=== PATIENT | male | born 1950 | race Caucasian/White ===

== ENCOUNTER 2020-06-05 08:32 | Outpatient (CLI) | payer MEDICARE, BC, SELFPAY ==
--- NOTE | 2020-06-05 08:52 | CT_ITS ---
WS: [id number] CT CHEST TECHNIQUE: Contrast enhanced CT of the chest with coronal and sagittal reformatted images. CLINICAL INFORMATION: COPD, HYPONATREMIA, SMOKER COMPARISON: CT chest 2010 DLP: 1102.[address] scans at [facility] use at least one of these dose optimization techniques: automat ed exposure control; mA and/or kV adjustment per patient size (includes targeted exams where dose is matched to clinical indication); or iterative reconstruction. FINDINGS: Moderate chronic emphysematous changes. Periseptal blebs in the upper lobes. Slight atelectasis in t he lung bases. No acute pulmonary infiltrates. No consolidation or pleural fluid. Noncalcified nodule right upper lobe measuring 6 mm. Normal thyroid gland. No mediastinal or hilar lymphadenopathy. Aortic calcification. Coronary calcifi cation. No axillary lymphadenopathy. Adrenal glands are normal. Cholelithiasis. Tiny low-attenuation lesion right hepatic lobe partially visualized likely hepatic cyst but too small characterize. This i s unchanged since 2010 CT/CT chest w con* [id number] IMPRESSION: 1. Moderate chronic emphysematous changes. 2. No acute pulmonary infiltrates. Subsegmental atelectasis in the lung bases. 3. 6 mm noncalcified nodule right upper lobe. Recommend 12 month follow-up. 4. No mediastinal or axillary lymphadenopathy. 5. Cholelithiasis.
[2020-06-05] MEDS: iohexol 300 mg/mL 100 mL Btl IV (09:06)
== END 2020-06-05 08:33 | disposition home or self-care (01) ==
LOC: RADWPI 08:37
PROVIDERS: PCP Family Medicine; Visit Provider Family Medicine
DX: J44.9 Chronic obstructive pulmonary disease, unspecified (principal); E87.1 Hypo-osmolality and hyponatremia; F17.210 Nicotine dependence, cigarettes, uncomplicated; K80.20 Calculus of gallbladder without cholecystitis without obstruction; R91.1 Solitary pulmonary nodule; J98.11 Atelectasis
CPT/HCPCS: 71260; Q9967

== ENCOUNTER → 2022-06-28 09:26 | Outpatient (BNVA) | payer MEDICARE, BC, SELFPAY | PROVIDERS: PCP Family Medicine; Visit Provider Podiatrist Foot & Ankle Surgery | DX: I73.9 Peripheral vascular disease, unspecified (principal); B35.1 Tinea unguium; R73.03 Prediabetes | CPT/HCPCS: 11721; 99203 ==

== ENCOUNTER → 2022-07-26 08:05 | Outpatient (BNVA) | payer MEDICARE, BC, SELFPAY | PROVIDERS: PCP Family Medicine; Visit Provider Family Medicine | DX: I10 Essential (primary) hypertension (principal); Z00.00 Encounter for general adult medical examination without abnormal findings | CPT/HCPCS: 80048; 80053; 80061 ==

== ENCOUNTER → 2022-07-28 16:05 | Outpatient (BNVA) | payer MEDICARE, BC, SELFPAY | PROVIDERS: PCP Family Medicine; Visit Provider Family Medicine | DX: E11.9 Type 2 diabetes mellitus without complications (principal); I10 Essential (primary) hypertension; J44.9 Chronic obstructive pulmonary disease, unspecified; K21.9 Gastro-esophageal reflux disease without esophagitis; Z00.00 Encounter for general adult medical examination without abnormal findings | CPT/HCPCS: 83036 ==

== ENCOUNTER → 2022-08-30 14:42 | Outpatient (BNVA) | payer MEDICARE, BC, SELFPAY | PROVIDERS: PCP Family Medicine; Visit Provider Podiatrist Foot & Ankle Surgery | DX: I73.9 Peripheral vascular disease, unspecified (principal); B35.1 Tinea unguium; R73.03 Prediabetes | CPT/HCPCS: 11721 ==

== ENCOUNTER 2022-12-06 11:01 | Outpatient (CLI) | payer MEDICARE, BC, SELFPAY ==
--- NOTE | 2022-12-06 11:13 | XR_ITS ---
WS: [id number] XR hip LT 2-3V wo/w pel* [id number] REASON FOR EXAM: left hip pain with walking FINDINGS: Moderate narrowing of the joint space with moderate subchondral sclerosis of the acetabulum. Significant osteophytosis of the acetabulum and femoral head. No soft tissue abnormality. XR/XR hip LT 2-3V wo/w pel* [id number] IMPRESSION: Significant osteoarthritis of the left hip.
== END 2022-12-06 11:02 | disposition home or self-care (01) ==
LOC: RAD 11:05
PROVIDERS: PCP Family Medicine; Visit Provider Nurse Practitioner Family
DX: M16.12 Unilateral primary osteoarthritis, left hip (principal)
CPT/HCPCS: 73502

== ENCOUNTER → 2022-12-07 13:17 | Outpatient (BNVA) | payer MEDICARE, BC, SELFPAY | PROVIDERS: PCP Family Medicine; Visit Provider Family Medicine | DX: R53.1 Weakness (principal); M19.90 Unspecified osteoarthritis, unspecified site; E87.1 Hypo-osmolality and hyponatremia | CPT/HCPCS: 80053; 83735; 84443; 85025; 86140 ==

== ENCOUNTER → 2022-12-13 10:13 | Outpatient (BNVA) | payer MEDICARE, BC, SELFPAY | PROVIDERS: PCP Family Medicine; Visit Provider Family Medicine | DX: E87.1 Hypo-osmolality and hyponatremia | CPT/HCPCS: 80048 ==

== ENCOUNTER → 2022-12-20 15:25 | Outpatient (BNVA) | payer MEDICARE, BC, SELFPAY | PROVIDERS: PCP Family Medicine; Visit Provider Family Medicine | DX: R53.1 Weakness (principal); E87.1 Hypo-osmolality and hyponatremia; N18.9 Chronic kidney disease, unspecified | CPT/HCPCS: 80053; 85025; 86140 ==

== ENCOUNTER → 2022-12-27 14:54 | Outpatient (BNVA) | payer MEDICARE, BC, SELFPAY | PROVIDERS: PCP Family Medicine; Visit Provider Family Medicine | DX: I73.9 Peripheral vascular disease, unspecified (principal); B35.1 Tinea unguium; M48.061 Spinal stenosis, lumbar region without neurogenic claudication; E87.1 Hypo-osmolality and hyponatremia; R79.82 Elevated C-reactive protein (CRP); E11.22 Type 2 diabetes mellitus with diabetic chronic kidney disease; I12.9 Hypertensive chronic kidney disease with stage 1 through stage 4 chronic kidney disease, or unspecified chronic kidney disease; E11.51 Type 2 diabetes mellitus with diabetic peripheral angiopathy without gangrene; N18.9 Chronic kidney disease, unspecified; B35.3 Tinea pedis; M79.672 Pain in left foot; M79.671 Pain in right foot | CPT/HCPCS: 11721; 80048; 85651; 86140; 99213 ==

== ENCOUNTER → 2023-01-11 15:41 | Outpatient (BNVA) | payer MEDICARE, BC, SELFPAY | PROVIDERS: PCP Family Medicine; Visit Provider Family Medicine | DX: E87.1 Hypo-osmolality and hyponatremia (principal) | CPT/HCPCS: 80048; 86140 ==

== ENCOUNTER 2023-01-14 12:18 | Outpatient (CLI) | payer MEDICARE, BC, SELFPAY ==
--- NOTE | 2023-01-14 13:30 | CTR_ITS ---
PROCEDURE INFORMATION: Exam: CT Chest Without Contrast; Diagnostic Exam date and time: 01/14/2023 2:00 PM Age: 72 years old Clinical indication: Abnormal findings; Abnormal lab test; Abnormal radiologic exam of lung or chest; Patient HX: Elevated esr, crp. Increased weakness, bilateral leg pain, HX of nodules in chest. ; Additional info: Elevated esr, crp, HX of lung nodule, increased weakness TECHNIQUE: Imaging protocol: Diagnostic computed tomography of the chest without contrast. Radiation optimization: All CT scans at this facility use at least one of these dose optimization techniques: automated exposure control; mA and/or kV adjustment per patient size (includes targeted exams where dose is matched to clinical indication); or iterative reconstruction. REPORTING DATA: Count of CT and Cardiac NM exams in prior 12 months: This patient has received 0 known CTs and 0 known cardiac nuclear medicine studies in the 12 months prior to the current study. COMPARISON: CT chest w con* [id number] 06/05/2020 9:04 AM RADIATION DOSE METRICS: Total DLP (mGy-cm): 1310.92 FINDINGS: Lungs: Emphysematous changes. Bilateral dependent atelectasis. Pleural spaces: Unremarkable. No pneumothorax. No pleural effusion. Heart: Unremarkable. No cardiomegaly. No pericardial effusion. Coronary arteries: Coronary artery atherosclerotic calcifications. Lymph nodes: Scattered subcentimeter short axis nonspecific mediastinal nodes. Vasculature: Unremarkable. No aortic aneurysm. Bones/joints: Unremarkable. No acute fracture. Soft tissues: Unremarkable. COMMENTS: In the absence of a history or active diagnosis of lung cancer, it is recommended that this patient with emphysema be evaluated for enrollment in a low dose CT lung cancer screening program. PROCEDURE INFORMATION: Exam: CT Abdomen And Pelvis Without Contrast Exam date and time: 01/14/2023 2:00 PM Age: 72 years old Clinical indication: Abnormal findings; Abnormal lab test; Abnormal radiologic exam of lung or chest; Patient HX: Elevated esr, crp. Increased weakness, bilateral leg pain, HX of nodules in chest. ; Additional info: Elevated esr, crp, HX of lung nodule, increased weakness TECHNIQUE: Imaging protocol: Computed tomography of the abdomen and pelvis without contrast. Radiation optimization: All CT scans at this facility use at least one of these dose optimization techniques: automated exposure control; mA and/or kV adjustment per patient size (includes targeted exams where dose is matched to clinical indication); or iterative reconstruction. REPORTING DATA: Count of CT and Cardiac NM exams in prior 12 months: This patient has received 0 known CTs and 0 known cardiac nuclear medicine studies in the 12 months prior to the current study. COMPARISON: CR XR hip LT 2-3V wo/w pel* [id number] 12/06/2022 11:18 AM RADIATION DOSE METRICS: Total DLP (mGy-cm): 1310.92 FINDINGS: Liver: Normal. No mass. Gallbladder and bile ducts: Normal. No calcified stones. No ductal dilation. Pancreas: Normal. No ductal dilation. Spleen: Normal. No splenomegaly. Adrenal glands: Normal. No mass. Kidneys and ureters: Perinephric edema likely reflecting renal insufficiency, please correlate pyelonephritis. Stomach and bowel: Constipation. Diverticulosis without diverticulitis. Appendix: No evidence of appendicitis. Intraperitoneal space: Unremarkable. No free air. No significant fluid collection. Vasculature: Unremarkable. No abdominal aortic aneurysm. Lymph nodes: Unremarkable. No enlarged lymph nodes. Urinary bladder: Unremarkable as visualized. Reproductive: Unremarkable as visualized. Bones/joints: Unremarkable. No acute fracture. Soft tissues: Unremarkable. Other findings: Bilateral punctate non-obstructing calyceal stones. CT/[place] [id number] IMPRESSION: 1. Coronary artery atherosclerotic calcifications. 2. Emphysematous changes. 3. Bilateral dependent atelectasis. 4. Scattered subcentimeter short axis nonspecific mediastinal nodes. IMPRESSION: 1. Negative for acute inflammatory process in the abdomen or pelvis. 2. Bilateral punctate non-obstructing calyceal stones. 3. Constipation. 4. Diverticulosis without diverticulitis. 5. Perinephric edema likely reflecting renal insufficiency, please correlate pyelonephritis.
[2023-01-14] MEDS: iohexol 350 mg/mL 500 mL Btl (per mL) PO (14:09)
== END 2023-01-14 12:19 | disposition home or self-care (01) ==
LOC: RAD 12:20
PROVIDERS: PCP Family Medicine; Visit Provider Family Medicine
DX: E87.1 Hypo-osmolality and hyponatremia (principal); R79.82 Elevated C-reactive protein (CRP); R91.1 Solitary pulmonary nodule; I25.10 Atherosclerotic heart disease of native coronary artery without angina pectoris; K59.00 Constipation, unspecified; K57.30 Diverticulosis of large intestine without perforation or abscess without bleeding
CPT/HCPCS: 71250; 74176; Q9967

== ENCOUNTER 2023-01-21 14:04 | Outpatient (CLI) | payer MEDICARE, BC, SELFPAY ==
--- NOTE | 2023-01-21 14:30 | MR_ITS ---
WS: [id number] MRI LUMBAR SPINE NONCONTRAST HISTORY: spinal stenosis/ worsening pain COMPARISON: 01/09/2015. TECHNIQUE: Sagittal and axial multisequence imaging is submitted. The same numbering pattern will be utilized on today's MRI as on 01/09/2015. Mild cervical stenosis at T3-4 Normal lumbar alignment with no compression fractures or marrow edema. Disc spaces are mildly narrowed and desiccated. Most significant narrowing at L5-S1. Conus terminates normally at L1-2 disc level. L1-L2: Mild facet arthritis. No stenosis. L2-L3: Mild annular disc bulging encroaching upon the ventral thecal sac. Disc encroaches upon the merlos barticular recesses and the foramina. Moderate central and bilateral foraminal stenosis has progresse d since the prior study. L3-L4: Diffuse annular disc bulging with mild ligamentum flavum and facet arthritis. There is disc en croachment upon the traversing L4 nerve roots. Mild central, bilateral subarticular recess and modera te bilateral foraminal stenosis. Similar to the prior study. L4-L5: Marked annular disc bulging with marked ligamentum flavum and facet arthritis. Severe central, bilateral subarticular recess and foraminal stenosis. Stenosis has significantly progressed since th e prior study. L5-S1: Marked annular disc bulging with facet joint arthritis. Moderate central and bilateral subarti cular recess stenosis. Moderate bilateral foraminal stenosis. Urinary bladder is markedly distended. IMPRESSION: 1. Multilevel progression of degenerative disc disease and stenoses since 2014. 2. L2-3: Moderate central, subarticular recess and foraminal stenosis. 3. L3-4: Moderate bilateral foraminal stenosis with mild central and subarticular recess stenosis. 4. L4-5: Severe central, bilateral subarticular recess and foraminal stenosis. 5. L5-S1: Moderate central, bilateral subarticular recess and foraminal stenosis.
== END 2023-01-21 14:05 | disposition home or self-care (01) ==
LOC: RAD 14:04
PROVIDERS: PCP Family Medicine; Visit Provider Family Medicine
DX: M48.07 Spinal stenosis, lumbosacral region (principal); M51.36 Other intervertebral disc degeneration, lumbar region; E87.1 Hypo-osmolality and hyponatremia; R79.82 Elevated C-reactive protein (CRP)
CPT/HCPCS: 72148

== ENCOUNTER → 2023-01-26 11:03 | Outpatient (BNVA) | payer MEDICARE, BC, SELFPAY | PROVIDERS: PCP Family Medicine; Visit Provider Family Medicine | DX: R79.82 Elevated C-reactive protein (CRP) (principal); M48.061 Spinal stenosis, lumbar region without neurogenic claudication; E87.1 Hypo-osmolality and hyponatremia | CPT/HCPCS: 80048; 86140 ==

== ENCOUNTER → 2023-02-09 08:17 | Outpatient (BNVA) | payer MEDICARE, BC, SELFPAY | PROVIDERS: PCP Family Medicine; Visit Provider Family Medicine | DX: R79.82 Elevated C-reactive protein (CRP) (principal); E87.1 Hypo-osmolality and hyponatremia; M48.061 Spinal stenosis, lumbar region without neurogenic claudication; E11.9 Type 2 diabetes mellitus without complications | CPT/HCPCS: 80048; 83036; 86140 ==

== ENCOUNTER → 2023-02-16 09:40 | Outpatient (BNVA) | payer MEDICARE, BC, SELFPAY | PROVIDERS: PCP Family Medicine; Visit Provider Orthopaedic Surgery | DX: M48.062 Spinal stenosis, lumbar region with neurogenic claudication; M54.9 Dorsalgia, unspecified | CPT/HCPCS: 36415; 72100; 80053; 85025; 99204 ==

== ENCOUNTER → 2023-03-02 12:15 | Outpatient (BNVA) | payer MEDICARE, BC, SELFPAY | PROVIDERS: PCP Family Medicine; Visit Provider Family Medicine | DX: I48.91 Unspecified atrial fibrillation (principal); R79.82 Elevated C-reactive protein (CRP); E87.1 Hypo-osmolality and hyponatremia | CPT/HCPCS: 80053; 81000; 83735; 83880; 84443; 85025; 86140 ==

== ENCOUNTER → 2023-03-04 09:01 | Outpatient (BNVA) | payer MEDICARE, BC, SELFPAY | PROVIDERS: PCP Family Medicine; Visit Provider Family Medicine | DX: I73.9 Peripheral vascular disease, unspecified (principal); B35.1 Tinea unguium; B35.3 Tinea pedis; R73.03 Prediabetes; N18.9 Chronic kidney disease, unspecified | CPT/HCPCS: 11721; 81000 ==

== ENCOUNTER 2023-03-10 09:20 | Outpatient (CLI) | payer MEDICARE, BC, SELFPAY ==
--- NOTE | 2023-03-10 09:31 | XR_ITS ---
WS: [id number] Left knee, AP and lateral views, 03/10/2023 Clinical Data: leg pain Comparison: None. Findings: No fractures or dislocations are seen. There is medial joint compartment narrowing. The left patella shows mild posterior irregularity with an anterior superior spur. The soft tissues are unremarkable. There are vascular calcifications. Impression: Mild osteoarthritis of the left knee Kellgren-Thiago Classification: grade 1 (doubtful): doubtful joint space narrowing and possible ost eophytic lipping
--- NOTE | 2023-03-10 09:31 | XR_ITS ---
WS: [id number] Left hip, AP and frog-leg views, 03/10/2023 Clinical Data: leg pain Comparison: None. Findings: No fractures or dislocations are seen. There is narrowing of the left hip joint. There is a small luisito tabular spur. There is no sclerosis or fragmentation of the left femoral head. There is osteophytic c hange of the left femoral head. The soft tissues are not remarkable. The adjacent pelvis is normal. Vascular calcifications are seen. Impression: Moderate osteoarthritis of the left hip. Tonnis classification: grade 2: small cysts in femoral head/acetabulum or moderate joint space narrow ing or moderate loss of head sphericity
--- NOTE | 2023-03-10 09:31 | XR_ITS ---
WS: [id number] Left femur and thigh, AP and lateral views, 03/10/2023 Clinical Data: leg pain Comparison: None. Findings: No fractures or dislocations are seen. The soft tissues are normal. The visualized knee shows no abno rmalities. There is vascular calcification. Impression: Negative left femur and thigh.
== END 2023-03-10 09:21 | disposition home or self-care (01) ==
PROVIDERS: PCP Family Medicine; Visit Provider Family Medicine
DX: M17.12 Unilateral primary osteoarthritis, left knee (principal); M16.12 Unilateral primary osteoarthritis, left hip
CPT/HCPCS: 73502; 73552; 73560

== ENCOUNTER 2023-03-16 07:03 | Outpatient (CLI) | payer MEDICARE, BC, SELFPAY ==
--- NOTE | 2023-03-16 07:30 | USCV_ITS ---
Monty Christopher Age: 72 Gender: M : 1950 Exam Date: 03/16/2023 07:20 Ordering Phys: Anand Geiger MD Technologist: Daiana Tejada Exam Location: [facility] – [place] Indication: NEW ONSET AFIB CHEST PAIN SOB HIGH C-REACTIVE PROTIEN BP: 130 / 75 HR: 74 Rhythm: Sinus Technical Quality: Adequate MEASUREMENTS (Male / Female) Normal Values 2D ECHO LV Diastolic Diameter PLAX 4.6 cm 4.2 - 5.9 / 3.9 - 5.3 cm LV Systolic Diameter PLAX 2.7 cm LV Chamber Size 3.8 cm IVS Diastolic Thickness 0.9 cm 0.6 - 1.0 / 0.6 - 0.9 cm IVS Systolic Thickness 1.2 cm LVPW Diastolic Thickness 1.2 cm 0.6 - 1.0 / 0.6 - 0.9 cm LVPW Systolic Thickness 1.7 cm RV Chamber Size 3.5 cm LVOT Diameter 2.0 cm LV Ejection Fraction 2D Teich 72.3 % LV Ejection Fraction MOD 2C 71.3 % LV Ejection Fraction 2C AL 71.7 % LA Diameter 5.6 cm LA Width 3.9 cm LA Height 5.3 cm RA Width 5.3 cm RA Height 4.5 cm Aorta at Sinotubular Diameter 3.0 cm M-MODE Aortic Annulus Diameter 3.9 cm LA Ao Ratio MM 1.6 MV E Point Septal Separation 0.5 cm DOPPLER AV Peak Velocity 118.0 cm/s LVOT Peak Velocity 72.0 cm/s AV Area Cont Eq vti 2.2 cm squared AV Area Cont Eq pk 2.0 cm squared MV Area PHT 5.1 cm squared Mitral E to A Ratio 198.7 MV E' Velocity 64.0 cm/s Mitral E to MV E' Ratio 13.0 Mitral E to LV E' Lateral Ratio 13.7 Mitral E to LV E' Septal Ratio 12.3 TR Peak Velocity 224.3 cm/s TR Peak Gradient 20.1 mmHg TR Mean Velocity 173.0 cm/s TR Mean Gradient 13.3 mmHg TR Velocity Time Integral 70.3 cm TV Peak E Velocity 69.0 cm/s Right Atrial Pressure 3.0 mmHg Pulmonary Artery Systolic Pressu 23.1 mmHg RV Acceleration Time 0.3 s RV Ejection Time 0.1 s RV AcT/ET 2.9 FINDINGS Left Ventricle Normal left ventricular size and systolic function, EF 64 %. No regional wall motion abnormalities. Right Ventricle Normal right ventricular size and systolic function. Right Atrium Mildly increased right atrial size. Left Atrium Mildly increased left atrial size. Mitral Valve Mild mitral valve regurgitation. Aortic Valve . Thickened aortic valve. Tricuspid Valve Mild to moderate tricuspid valve regurgitation. Estimated pulmonary artery peak systolic pressure 23 mm of Hg Pulmonic Valve Pulmonic valve not well visualized. Pericardium Normal pericardium without effusion. Aorta Normal ascending aorta dimension. IVC Normal inferior vena cava. CONCLUSIONS Normal left ventricular size and systolic function, EF 64 %. No regional wall motion abnormalities. Mild biatrial enlargement. Thickened aortic valve. Mild mitral valve regurgitation. Mild to moderate tricuspid valve regurgitation. Estimated pulmonary artery peak systolic pressure 23 mm of Hg. There is no pericardial effusion. There are no intracardiac masses. No similar previous studies are available for comparison Dr Isabel Pisano MD FAC (Electronically Signed) Final Date: 16 March 2023 21:46 S
== END 2023-03-16 07:04 | disposition home or self-care (01) ==
LOC: RAD 07:03
PROVIDERS: PCP Family Medicine; Visit Provider Family Medicine
DX: R07.9 Chest pain, unspecified (principal); E87.1 Hypo-osmolality and hyponatremia; I48.91 Unspecified atrial fibrillation; R79.82 Elevated C-reactive protein (CRP); I51.7 Cardiomegaly; I34.0 Nonrheumatic mitral (valve) insufficiency; I35.8 Other nonrheumatic aortic valve disorders
CPT/HCPCS: 93306

== ENCOUNTER → 2023-04-12 09:49 | Outpatient (BNVA) | payer MEDICARE, BC, SELFPAY | PROVIDERS: PCP Family Medicine; Visit Provider Family Medicine | DX: M48.062 Spinal stenosis, lumbar region with neurogenic claudication (principal); I48.91 Unspecified atrial fibrillation; R79.82 Elevated C-reactive protein (CRP); E87.1 Hypo-osmolality and hyponatremia; I10 Essential (primary) hypertension | CPT/HCPCS: 80048; 83880; 85025; 86140 ==

== ENCOUNTER → 2023-05-24 10:24 | Outpatient (BNVA) | payer MEDICARE, BC, SELFPAY | PROVIDERS: PCP Family Medicine; Visit Provider Podiatrist Foot & Ankle Surgery | DX: B35.1 Tinea unguium (principal); B35.3 Tinea pedis; I73.9 Peripheral vascular disease, unspecified; R73.03 Prediabetes | CPT/HCPCS: 11721 ==

== ENCOUNTER → 2023-07-22 10:38 | Outpatient (BNVA) | payer MEDICARE, BC, SELFPAY | PROVIDERS: PCP Family Medicine; Visit Provider Family Medicine | DX: I10 Essential (primary) hypertension (principal); I48.91 Unspecified atrial fibrillation; E87.1 Hypo-osmolality and hyponatremia | CPT/HCPCS: 80053; 83880; 86140 ==

== ENCOUNTER → 2023-07-25 09:00 | Outpatient (BNVA) | payer MEDICARE, BC, SELFPAY | PROVIDERS: PCP Family Medicine; Visit Provider Podiatrist Foot & Ankle Surgery | DX: B35.1 Tinea unguium (principal); B35.3 Tinea pedis; I73.9 Peripheral vascular disease, unspecified; R73.03 Prediabetes | CPT/HCPCS: 11721 ==

== ENCOUNTER 2023-08-28 06:39 | Emergency (ER) | payer MEDICARE, BC, SELFPAY ==
[2023-08-28 06:41] VITALS: BP 141/106; PULSE 89; RESP 16; TEMP 36.6; O2SAT 97
--- NOTE | 2023-08-28 06:47 | CTR_ITS ---
PROCEDURE INFORMATION: Exam: CT Abdomen And Pelvis Without Contrast Exam date and time: 08/28/2023 7:02 AM Age: 72 years old Clinical indication: Other: Hematuria TECHNIQUE: Imaging protocol: Computed tomography of the abdomen and pelvis without contrast. Radiation optimization: All CT scans at this facility use at least one of these dose optimization techniques: automated exposure control; mA and/or kV adjustment per patient size (includes targeted exams where dose is matched to clinical indication); or iterative reconstruction. COMPARISON: [place] [id number] 01/14/2023 2:00 PM RADIATION DOSE METRICS: Total DLP (mGy-cm): 1180.73 FINDINGS: Heart: Very small pericardial effusion. Bilateral mild ureteropelvocaliectasis. No obstructing calculus is seen. The urinary bladder is distended and the findings may be on that basis. Liver: Normal. No mass. Gallbladder and bile ducts: Normal. No calcified stones. No ductal dilation. Pancreas: Normal. No ductal dilation. Spleen: Normal. No splenomegaly. Adrenal glands: Normal. No mass. Kidneys and ureters: Normal. No hydronephrosis. Stomach and bowel: Unremarkable. No obstruction. No mucosal thickening. Appendix: No evidence of appendicitis. Intraperitoneal space: Unremarkable. No free air. No significant fluid collection. Vasculature: Unremarkable. No abdominal aortic aneurysm. Lymph nodes: Unremarkable. No enlarged lymph nodes. Urinary bladder: There is slightly increased density in the dependent urinary bladder this appears more likely to represent or clotted blood than a mass. Reproductive: Unremarkable as visualized. Bones/joints: Degenerative changes of the lumbar spine. Soft tissues: Unremarkable. CT/CT kidney stone [id number] IMPRESSION: Distended urinary bladder with mild upper tract obstructive changes. Debris, perhaps blood clot, within the urinary bladder.
--- NOTE | 2023-08-28 06:47 | ED_ITS ---
HPI - Male Genitourinary 2 General: Chief complaint: Urogenital-Male Stated complaint: Blood in Urine Time Seen by Provider: 08/28/23 06:41 Source: patient and EMS Mode of arrival: EMS Limitations: no limitations History of Present Illness: 72-year-old male who states he has been having hematuria since last night. He states that it has been just gross hematuria and is been having some painful urination. He has had no history of any kidney or prostate issues he states he has never had hematuria in the past he is not on any blood thinners. He denies any vomiting diarrhea or fever. Associated symptoms: Reports dysuria and hematuria; Deny nausea or vomiting Review of Systems 2 Const: Denies: fever(s), chills, body aches or change in appetite ENMT: Denies: throat pain or dental pain Card: Denies: chest pain Resp: Denies: dyspnea GI: Denies: abdominal pain, nausea, vomiting or diarrhea : Reports: dysuria and hematuria Musc: Denies: neck pain or back pain Skin/Breast: Denies: rash Neuro: Denies: headache(s) PFSH ED 2 PFSH: Medical History Atrial fibrillation Lumbar spinal stenosis Hyponatremia This has been chronic for several years. Made worse by diuretics. Negative work-up otherwise Gout Chronic kidney disease (CKD) Hypertension Diabetes mellitus type 2, controlled COPD (chronic obstructive pulmonary disease) GERD (gastroesophageal reflux disease) Physical Exam 2 Const: COMMON NORMALS: no acute distress, patient oriented x3 and healthy appearing HENMT: COMMON NORMALS: normocephalic and atraumatic HEAD & SCALP: n ormocephalic and atraumatic Neck/C-Spine: COMMON NORMALS: full ROM and supple Chest: COMMONS NORMALS: normal inspection of the chest Resp: COMMON NORMALS: normal respiratory effort Cardio: COMMON NORMALS: regular rate, regular rhythm and No murmurs present (Cardio) RATE: regular rate RHYTHM: regular rhythm GI: COMMON NORMALS: Normal to inspection, nondistended, normoactive bowel sounds present, Soft to palpation, non-tender and no masses PALPATION: Yes Soft to palpation Extremity: COMMON NORMALS: normal to inspection and full ROM Neuro: COMMON NORMALS: patient oriented x3, moves all extremities and no focal motor deficits Psych: COMMON NORMALS: mental status grossly normal, Normal thought process present and cooperative THOUGHT PROCESS: Normal thought process present Skin: COMMON NORMALS: no rashes or lesions noted and no wounds GENERAL SKIN EXAM: no rashes or lesions noted Course 2 Vital Signs: Vital signs: Vital Signs Temperature 97.9 F 08/28/23 06:41 Pulse Rate 93 08/28/23 09:58 Respiratory Rate 16 08/28/23 09:58 Blood Pressure 164/97 08/28/23 09:58 Pulse Oximetry 98 08/28/23 09:58 MDM - Male Medical Decision Making Patient presents with hematuria he was found to have a cystitis has had a quite lean and large bladder on the CT scan he is unable to empty fully did place a Nelson his urine is clear now did leave Nelson in place with leg bag will start on antibiotics he is to follow-up with urology return if worsening. Medical Records I reviewed the patient's medical records. Lab Data I reviewed the patient's lab results. 08/28/23 06:56 08/28/23 09:01 Radiology Impressions Abdomen/Pelvis CT 08/28/23 06:47 IMPRESSION: Distended urinary bladder with mild upper tract obstructive changes. Debris, perhaps blood clot, within the urinary bladder. Laboratory Results WBC 9.14 10^3/uL (3.29-11.43) 08/28/23 06:56 RBC 4.99 10^6/uL (3.85-5.65) 08/28/23 06:56 Hgb 13.70 g/dL (11.27-16.99) 08/28/23 06:56 Hct 40.6 % (37-53) 08/28/23 06:56 MCV 81.4 fl (82-101) L 08/28/23 06:56 MCH 27.5 pg (27-33) 08/28/23 06:56 MCHC 33.7 g/dL (30-55) 08/28/23 06:56 RDW 15.3 % (12.1-15.1) H 08/28/23 06:56 Plt Count 201 10^3/cmm (157-399) 08/28/23 06:56 MPV 10.0 fL (7.4-10.4) 08/28/23 06:56 Neut % (Auto) 66.4 % 08/28/23 06:56 Lymph % (Auto) 20.4 % 08/28/23 06:56 [place] % (Auto) 8.5 % 08/28/23 06:56 Eos % (Auto) 3.8 % 08/28/23 06:56 Baso % (Auto) 0.5 % 08/28/23 06:56 Neut # (Auto) 6.06 10^3/uL (1.8-7.7) 08/28/23 06:56 Lymph # (Auto) 1.9 10^3/uL (0.8-4.8) 08/28/23 06:56 [place] # (Auto) 0.8 10^3/uL (0.2-0.9) 08/28/23 06:56 Eos # (Auto) 0.4 10^3/uL (0.0-0.8) 08/28/23 06:56 Baso # (Auto) 0.1 10^3/uL (0.0-0.1) 08/28/23 06:56 Nucleated RBC % (auto) 0 % 08/28/23 06:56 Nucleated RBCs # 0.0 /100WBC 08/28/23 06:56 PT 15.00 SECONDS (12.1-14.9) H 08/28/23 06:56 INR 1.14 (0.8-1.2) 08/28/23 06:56 Sodium 130 mmol/L (136-145) L 08/28/23 09:01 Potassium 4.2 mmol/L (3.5-5.1) 08/28/23 09:01 Chloride 97 mmol/L (98-107) L 08/28/23 09:01 Carbon Dioxide 20 mmol/L (22-29) L 08/28/23 09:01 Anion Gap 17.2 (5-19) 08/28/23 09:01 BUN 16 mg/dL (8-23) 08/28/23 09:01 Creatinine 1.0 mg/dL (0.7-1.2) 08/28/23 09:01 GFR Calculation Not Reportable 08/28/23 09:01 Glucose 124 mg/dL (65-115) H 08/28/23 09:01 Calculated Osmolality 273 mOsm/kg (285-295) L 08/28/23 09:01 Calcium 8.6 mg/dL (8.5-10.5) 08/28/23 09:01 Total Bilirubin 0.8 mg/dL (0.15-1.2) 08/28/23 09:01 AST 18 U/L (0-40) 08/28/23 09:01 ALT 9 U/L (0-41) 08/28/23 09:01 Alkaline Phosphatase 112 U/L (40-130) 08/28/23 09:01 Total Protein 6.9 g/dL (6.6-8.7) 08/28/23 09:01 Albumin 3.4 g/dL (3.5-5.2) L 08/28/23 09:01 Globulin 3.5 g/dL (1.3-4.6) 08/28/23 09:01 Urine Color Brown (Yellow) A 08/28/23 06:52 Urine Appearance Bloody (CLEAR) A 08/28/23 06:52 Urine pH 6.5 (5-7) 08/28/23 06:52 Ur Specific [place] 1.015 (1.005-1.030) 08/28/23 06:52 Urine Protein 3+ (Negative) H 08/28/23 06:52 Urine Glucose (UA) Norm (Normal) 08/28/23 06:52 Urine Ketones Negative (Negative) 08/28/23 06:52 Urine Blood 3+ (Negative) H 08/28/23 06:52 Urine Nitrate Positive (Negative) H 08/28/23 06:52 Urine Bilirubin Neg (Negative) 08/28/23 06:52 Urine Urobilinogen Norm mg/dL (Negative) 08/28/23 06:52 Ur Leukocyte Esterase 2+ (Negative) H 08/28/23 06:52 Urine RBC Too numerous to cnt /hpf (0-2) H 08/28/23 06:52 Urine WBC 15-25 /hpf (0-5) H 08/28/23 06:52 Ur Squamous Epith Cells None /hpf (0-5) 08/28/23 06:52 Amorphous Sediment Not Reportable 08/28/23 06:52 Urine Bacteria 1+ /hpf (NONE) H 08/28/23 06:52 All radiology interpretation(s) finalized by discharge Discharge Plan Discharge Patient Disposition: Home Clinical Impression: Urinary tract infection Qualifiers: Urinary tract infection type: acute cystitis Hematuria presence: with hematuria Qualified Code(s): N30.01 - Acute cystitis with hematuria Condition: Stable Prescriptions: New cephalexin 500 mg capsule 500 mg PO TID 7 Days Qty: 21 0RF No Action aspirin 325 mg tablet 325 mg PO DAILY carvedilol 12.5 mg tablet 12.5 mg PO BID Qty: 60 11RF clonidine HCl 0.1 mg tablet 0.1 mg PO BID Qty: 60 11RF simvastatin 10 mg tablet 10 mg PO DAILY Qty: 30 11RF omeprazole 20 mg Capsule,Delayed Release(Dr/Ec) 20 mg PO DAILY naproxen 500 mg tablet 500 mg PO BID PRN (Reason: Pain) Discharge Orders: Discharge ED (Routine); Ordered 08/28/23 Ordered By: Karolina Marr Referrals: Anand Geiger MD [Primary Care Provider] - 4-7 days Discharge Diet: Advance as tolerated Discharge Activity: Resume usual activity Patient Instructions: Nelson Catheter Care, Urinary Tract Infection in Men (ED), Hematuria (ED) Coding Level of Care Code ED [employer] for [employer]de Perla
[2023-08-28 07:12] LABS: Basophils # 0.1 10^3/uL (0.0-0.1); Basophils % 0.5 %; Eosinophils # 0.4 10^3/uL (0.0-0.8); Eosinophils % 3.8 %; Hematocrit 40.6 % (37-53); Lymphocytes # 1.9 10^3/uL (0.8-4.8); Lymphocytes % 20.4 %; Mean Corpuscular HGB Conc 33.7 g/dL (30-55); Mean Corpuscular Hemoglobin 27.5 pg (27-33); Mean Corpuscular Volume 81.4 fl (82-101); Monocytes # 0.8 10^3/uL (0.2-0.9); Monocytes % 8.5 %; Neutrophils # 6.06 10^3/uL (1.8-7.7); Neutrophils % 66.4 %; Nucleated Red Blood Cells % 0 %; Platelet Count 201 10^3/cmm (157-399); Red Blood Count 4.99 10^6/uL (3.85-5.65); Red Cell Distribution Width 15.3 % (12.1-15.1); White Blood Count 9.14 10^3/uL (3.29-11.43)
[2023-08-28 07:24] LABS: INR 1.14 (0.8-1.2)
[2023-08-28 07:40] LABS: Add Urine Microscopic? YES; Bilirubin Urine Neg (Negative); Blood Urine 3+ (Negative); Glucose Urine UA Norm (Normal); Ketones Urine Negative (Negative); Leukocyte Esterase Urine 2+ (Negative); Nitrate Urine Positive (Negative); Protein Urine 3+ (Negative); Specific Gravity, Urine 1.015 (1.005-1.030); Urine Appearance Bloody (CLEAR); Urine Color Brown (Yellow); Urobilinogen Urine Norm (Negative); pH Urine 6.5 (5-7)
[2023-08-28 07:41] LABS: Add Urine Culture? Yes; Bacteria Urine 1+ /hpf; RBC Urine TOO NUMEROUS TO CNT /hpf (0-2); WBC Urine 15-25 /hpf (0-5)
[2023-08-28 08:51] VITALS: BP 153/61; PULSE 82; RESP 16; O2SAT 99
[2023-08-28] MEDS: cefTRIAXone 1,000 MG in sodium chloride 0.9% (plus) 50 ML 100 MG IV (08:52)
[2023-08-28 09:37] LABS: Alanine Aminotransferase 9 U/L (0-41); Albumin Level 3.4 g/dL (3.5-5.2); Alkaline Phosphatase 112 U/L (40-130); Aspartate Amino Transferase 18 U/L (0-40); Blood Urea Nitrogen 16 mg/dL (8-23); Calcium 8.6 mg/dL (8.5-10.5); Carbon Dioxide 20 mmol/L (22-29); Chloride 97 mmol/L (98-107); Creatinine Clr Calc Pharmacy 84.2241; Globulin 3.5 g/dL (1.3-4.6); Glucose 124 mg/dL (65-115); Osmolality Calculated 273 mOsm/kg (285-295); Sodium 130 mmol/L (136-145); Total Bilirubin 0.8 mg/dL (0.15-1.2); Total Protein 6.9 g/dL (6.6-8.7)
[2023-08-28 09:39] LABS: Anion Gap 17.2 (5-19); Potassium 4.2 mmol/L (3.5-5.1)
[2023-08-28 09:58] VITALS: BP 164/97; PULSE 93; RESP 16; O2SAT 98
--- NOTE | 2023-08-31 18:53 | DCPLANNER ---
FAXED REFERRAL TO [facility]
== END 2023-08-28 10:25 | disposition home or self-care (01) ==
PROVIDERS: Emergency Provider Emergency Medicine; PCP Family Medicine
DX: N30.01 Acute cystitis with hematuria (principal); Z79.82 Long term (current) use of aspirin; E11.22 Type 2 diabetes mellitus with diabetic chronic kidney disease; I12.9 Hypertensive chronic kidney disease with stage 1 through stage 4 chronic kidney disease, or unspecified chronic kidney disease; N18.9 Chronic kidney disease, unspecified; J44.9 Chronic obstructive pulmonary disease, unspecified
CPT/HCPCS: 36415; 51702; 74176; 80053; 81001; 85025; 85610; 87086; 96365; 99285; J0696

== ENCOUNTER 2023-08-30 06:14 | Emergency (ER) | payer MEDICARE, BC, SELFPAY ==
[2023-08-30 06:15] VITALS: BP 164/85; PULSE 81; RESP 18; TEMP 36.6; O2SAT 98; BMI 38.0
--- NOTE | 2023-08-30 06:26 | W.ED.MALEGU ---
HPI - Male Genitourinary General: Chief complaint: Urogenital-Male Stated complaint: hematuria Time Seen by Provider: 08/30/23 06:18 Source: patient Mode of arrival: ambulatory History of Present Illness: 72-year-old male presents emergency room with complaint of gross hematuria and a Nelson catheter. Patient was here 2 days ago at that time he had urinary outlet obstruction secondary to hematuria and clots catheter was placed urine was cultured he was started on cephalexin. So far urine has not had any growth. He is not on any anticoagulants he does take aspirin daily and naproxen. Encouraged tenderness today because of gross hematuria in the Nelson bag. He has no known history of bladder or prostate cancers. Associated symptoms: Deny dysuria Review of Systems Const: Denies: fever(s) or chills Card: Denies: chest pain Resp: Denies: dyspnea GI: Denies: abdominal pain : Denies: dysuria, urinary frequency or urinary urgency Musc: Denies: neck pain or back pain Skin/Breast: Denies: rash PFSH ED PFSH: Medical History Atrial fibrillation Lumbar spinal stenosis Hyponatremia This has been chronic for several years. Made worse by diuretics. Negative work-up otherwise Gout Chronic kidney disease (CKD) Hypertension Diabetes mellitus type 2, controlled COPD (chronic obstructive pulmonary disease) GERD (gastroesophageal reflux disease) Physical Exam Const: COMMON NORMALS: no acute distress GENERAL APPEARANCE: cooperative and comfortable ORIENTATION/CONSCIOUSNESS: Yes awake, Yes oriented to person, Yes oriented to place and Yes oriented to time HENMT: COMMON NORMALS: normocephalic, atraumatic and hearing grossly normal bilaterally HEAD & SCALP: normocephalic and atraumatic Resp: COMMON NORMALS: normal respiratory effort, No retractions, No use of accessory muscles and clear to auscultation bilaterally AUSCULTATION: clear to auscultation bilaterally Cardio: COMMON NORMALS: regular rate, regular rhythm and No murmurs present (Cardio) RATE: regular rate RHYTHM: regular rhythm GI: COMMON NORMALS: Soft to palpation and No hepatosplenomegaly present AUSCULTATION: Yes normoactive bowel sounds PALPATION: Yes Soft to palpation, No Tenderness to palpation present (GI), No Guarding due to palpation present (GI) and Yes No hepatosplenomegaly present Extremity: COMMON NORMALS: normal to inspection, capillary refill normal, no clubbing, cyanosis or edema, no calf tenderness and no pedal edema Neuro: SENSORIUM/ORIENTATION: Yes oriented to person, Yes oriented to place and Yes oriented to time Skin: COMMON NORMALS: no rashes or lesions noted GENERAL SKIN EXAM: no rashes or lesions noted Course Vital Signs: Vital signs: Vital Signs Temperature 97.9 F 08/30/23 06:15 Pulse Rate 78 08/30/23 10:03 Respiratory Rate 16 08/30/23 10:03 Blood Pressure 164/85 08/30/23 06:15 Pulse Oximetry 95 08/30/23 10:03 Oxygen Delivery Me thod Room Air 08/30/23 10:03 MDM - Male Medical Decision Making Hematuria improved after 6 L of irrigation. Will discharge patient home set up outpatient follow-up with urology. Discussed with the patient if there is no urinary output or he has develops pelvic discomfort to return to the emergency room. He is not on any anticoagulants at this time. Urine culture from 08/27 showed mixed kayce. We did repeat urine today did not start him on antibiotics pending a positive urine culture. CT was done 08/27 and reviewed did not show any large structural abnormalities so was not repeated today. Medical Records I reviewed the patient's medical records. Lab Data I reviewed the patient's lab results. 08/30/23 07:03 08/30/23 07:03 Laboratory Results WBC 8.43 10^3/uL (3.29-11.43) 08/30/23 07:03 RBC 4.60 10^6/uL (3.85-5.65) 08/30/23 07:03 Hgb 12.70 g/dL (11.27-16.99) 08/30/23 07:03 Hct 38.0 % (37-53) 08/30/23 07:03 MCV 82.6 fl (82-101) 08/30/23 07:03 MCH 27.6 pg (27-33) 08/30/23 07:03 MCHC 33.4 g/dL (30-55) 08/30/23 07:03 RDW 15.3 % (12.1-15.1) H 08/30/23 07:03 Plt Count 184 10^3/cmm (157-399) 08/30/23 07:03 MPV 9.3 fL (7.4-10.4) 08/30/23 07:03 Neut % (Auto) 58.8 % 08/30/23 07:03 Lymph % (Auto) 26.3 % 08/30/23 07:03 [place] % (Auto) 8.9 % 08/30/23 07:03 Eos % (Auto) 5.2 % 08/30/23 07:03 Baso % (Auto) 0.4 % 08/30/23 07:03 Neut # (Auto) 4.96 10^3/uL (1.8-7.7) 08/30/23 07:03 Lymph # (Auto) 2.2 10^3/uL (0.8-4.8) 08/30/23 07:03 [place] # (Auto) 0.8 10^3/uL (0.2-0.9) 08/30/23 07:03 Eos # (Auto) 0.4 10^3/uL (0.0-0.8) 08/30/23 07:03 Baso # (Auto) 0.0 10^3/uL (0.0-0.1) 08/30/23 07:03 Nucleated RBC % (auto) 0 % 08/30/23 07:03 Nucleated RBCs # 0.0 /100WBC 08/30/23 07:03 PT 15.10 SECONDS (12.1-14.9) H 08/30/23 07:03 INR 1.16 (0.8-1.2) 08/30/23 07:03 APTT 37.4 SECONDS (23.9-36.7) H 08/30/23 07:03 Sodium 127 mmol/L (136-145) L 08/30/23 07:03 Potassium 4.9 mmol/L (3.5-5.1) 08/30/23 07:03 Chloride 93 mmol/L (98-107) L 08/30/23 07:03 Carbon Dioxide 26 mmol/L (22-29) 08/30/23 07:03 Anion Gap 12.9 (5-19) 08/30/23 07:03 BUN 14 mg/dL (8-23) 08/30/23 07:03 Creatinine 1.0 mg/dL (0.7-1.2) 08/30/23 07:03 GFR Calculation Not Reportable 08/30/23 07:03 Glucose 124 mg/dL (65-115) H 08/30/23 07:03 Calculated Osmolality 266 mOsm/kg (285-295) L 08/30/23 07:03 Calcium 9.2 mg/dL (8.5-10.5) 08/30/23 07:03 Total Bilirubin 0.9 mg/dL (0.15-1.2) 08/30/23 07:03 AST 18 U/L (0-40) 08/30/23 07:03 ALT 9 U/L (0-41) 08/30/23 07:03 Alkaline Phosphatase 119 U/L (40-130) 08/30/23 07:03 Total Protein 7.6 g/dL (6.6-8.7) 08/30/23 07:03 Albumin 3.8 g/dL (3.5-5.2) 08/30/23 07:03 Globulin 3.8 g/dL (1.3-4.6) 08/30/23 07:03 Urine Color Red (Yellow) A 08/30/23 06:22 Urine Appearance Turbid (CLEAR) A 08/30/23 06:22 Urine pH 7 (5-7) 08/30/23 06:22 Ur Specific [place] 1.010 (1.005-1.030) 08/30/23 06:22 Urine Protein 3+ (Negative) H 08/30/23 06:22 Urine Glucose (UA) Norm (Normal) 08/30/23 06:22 Urine Ketones Negative (Negative) 08/30/23 06:22 Urine Blood 3+ (Negative) H 08/30/23 06:22 Urine Nitrate Negative (Negative) 08/30/23 06:22 Urine Bilirubin Neg (Negative) 08/30/23 06:22 Urine Urobilinogen 1 mg/dL (Negative) H 08/30/23 06:22 Ur Leukocyte Esterase 2+ (Negative) H 08/30/23 06:22 Urine RBC Too numerous to cnt /hpf (0-2) H 08/30/23 06:22 Urine WBC Too numerous to cnt /hpf (0-5) H 08/30/23 06:22 Ur Squamous Epith Cells None /hpf (0-5) 08/30/23 06:22 Amorphous Sediment Not Reportable 08/30/23 06:22 Urine Bacteria None /hpf (NONE) 08/30/23 06:22 No radiology studies performed this visit Discharge Plan Discharge Patient Disposition: Home Clinical Impression: Hematuria Condition: Stable Prescriptions: No Action aspirin 325 mg tablet 325 mg PO DAILY carvedilol 12.5 mg tablet 12.5 mg PO BID Qty: 60 11RF clonidine HCl 0.1 mg tablet 0.1 mg PO BID Qty: 60 11RF simvastatin 10 mg tablet 10 mg PO DAILY Qty: 30 11RF omeprazole 20 mg Capsule,Delayed Release(Dr/Ec) 20 mg PO DAILY naproxen 500 mg tablet 500 mg PO BID PRN (Reason: Pain) cephalexin 500 mg capsule 500 mg PO TID 7 Days Qty: 21 0RF Discharge Orders: Discharge ED (Routine); Ordered 08/30/23 Ordered By: Ortega Garcia Referrals: Anand Geiger MD [Primary Care Provider] - Discharge Diet: Usual diet Discharge Activity: Resume usual activity Patient Instructions: Opioid Safety, Pain Management Activity Restrictions/Additional Instructions: Thank you for choosing [facility] for your healthcare needs today. Please realize this is an emergency room and that we are providing you with a medical screening exam and this may not be complete and all inclusive of all the testing and or work up that you may need to determine your ailment or severity of your illness. It is very important that you follow up as instructed or that you return to the Emergency Department should you have concerns or if your condition changes or worsens in any way. You were seen today for blood in the urine. This improved after irrigation of the bladder. Return if the bladder catheter does not continue to drain. residential property manager will make arrangements for you to follow-up with urology. Coding Level of Care Code ED On Site Wastewater Systems Technician for Clyde Perla
[2023-08-30 07:10] LABS: Basophils % 0.4 %; Eosinophils # 0.4 10^3/uL (0.0-0.8); Eosinophils % 5.2 %; Lymphocytes # 2.2 10^3/uL (0.8-4.8); Lymphocytes % 26.3 %; Mean Corpuscular HGB Conc 33.4 g/dL (30-55); Mean Corpuscular Hemoglobin 27.6 pg (27-33); Mean Corpuscular Volume 82.6 fl (82-101); Mean Platelet Volume 9.3 fL (7.4-10.4); Monocytes # 0.8 10^3/uL (0.2-0.9); Monocytes % 8.9 %; Neutrophils # 4.96 10^3/uL (1.8-7.7); Neutrophils % 58.8 %; Nucleated Red Blood Cells % 0 %; Platelet Count 184 10^3/cmm (157-399); Red Cell Distribution Width 15.3 % (12.1-15.1); White Blood Count 8.43 10^3/uL (3.29-11.43)
[2023-08-30 07:24] LABS: INR 1.16 (0.8-1.2)
[2023-08-30 07:25] LABS: Partial Thromboplastin Time 37.4 SECONDS (23.9-36.7)
[2023-08-30 07:29] LABS: Alanine Aminotransferase 9 U/L (0-41); Albumin Level 3.8 g/dL (3.5-5.2); Alkaline Phosphatase 119 U/L (40-130); Anion Gap 12.9 (5-19); Aspartate Amino Transferase 18 U/L (0-40); Blood Urea Nitrogen 14 mg/dL (8-23); Calcium 9.2 mg/dL (8.5-10.5); Carbon Dioxide 26 mmol/L (22-29); Chloride 93 mmol/L (98-107); Creatinine Clr Calc Pharmacy 84.2241; Globulin 3.8 g/dL (1.3-4.6); Glucose 124 mg/dL (65-115); Osmolality Calculated 266 mOsm/kg (285-295); Potassium 4.9 mmol/L (3.5-5.1); Sodium 127 mmol/L (136-145); Total Bilirubin 0.9 mg/dL (0.15-1.2); Total Protein 7.6 g/dL (6.6-8.7)
[2023-08-30 07:32] LABS: Glucose Urine UA Norm (Normal); Ketones Urine Negative (Negative); Protein Urine 3+ (Negative); Urine Appearance Turbid (CLEAR); Urine Color Red (Yellow); pH Urine 7 (5-7)
[2023-08-30 07:33] LABS: Add Urine Culture? Yes; Add Urine Microscopic? YES; Bilirubin Urine Neg (Negative); Blood Urine 3+ (Negative); Leukocyte Esterase Urine 2+ (Negative); Nitrate Urine Negative (Negative); RBC Urine TOO NUMEROUS TO CNT /hpf (0-2); Urobilinogen Urine 1 mg/dL (Negative); WBC Urine TOO NUMEROUS TO CNT /hpf (0-5)
[2023-08-30 07:46] VITALS: PULSE 71; O2SAT 97
[2023-08-30 10:03] VITALS: PULSE 78; RESP 16; O2SAT 95
[2023-08-30 12:03] VITALS: BP 171/90; PULSE 78; RESP 16; O2SAT 97
== END 2023-08-30 12:04 | disposition home or self-care (01) ==
PROVIDERS: Emergency Provider Family Medicine; PCP Family Medicine
DX: R31.9 Hematuria, unspecified (principal); Z79.82 Long term (current) use of aspirin; I12.9 Hypertensive chronic kidney disease with stage 1 through stage 4 chronic kidney disease, or unspecified chronic kidney disease; E11.22 Type 2 diabetes mellitus with diabetic chronic kidney disease; N18.9 Chronic kidney disease, unspecified; J44.9 Chronic obstructive pulmonary disease, unspecified
CPT/HCPCS: 36415; 80053; 81001; 85025; 85610; 85730; 87086; 99283

== ENCOUNTER 2023-09-08 13:46 | Emergency (ER) | payer MEDICARE, BC, SELFPAY ==
[2023-09-08] VITALS (9 sets, daily range): BP systolic 163–175; BP diastolic 82–93; PULSE 66–76; RESP 17–18; TEMP 36.8; O2SAT 96–100; BMI 38.0
--- NOTE | 2023-09-08 13:58 | ED_ITS ---
HPI - Male Genitourinary 2 General: Chief complaint: Urogenital-Male Stated complaint: blood in urine Time Seen by Provider: 09/08/23 13:47 History of Present Illness: 72-year-old man with history of ckd, cad , copd, dmii who presents the emergency room with hematuria and now inability to void. He had similar episode little over a week ago. He had had a Nelson placed and went to urology [place] where they remove the Nelson. He says for the next couple days he was urinating fine until last night he started having bleeding again and this morning he cannot urinate. No fevers. No altered mental status. No focal motor deficits. He is not on any anticoagulation. Review of Systems 2 Narrative: Constitutional symptoms: Negative except as documented in HPI. Skin symptoms: Negative except as documented in HPI. Eye symptoms: Negative except as documented in HPI. ENMT symptoms: Negative except as documented in HPI. Respiratory symptoms: Negative except as documented in HPI. Cardiovascular symptoms: Negative except as documented in HPI. Gastrointestinal symptoms: Negative except as documented in HPI. Genitourinary symptoms: Negative except as documented in HPI. Musculoskeletal symptoms: Negative except as documented in HPI. Neurologic symptoms: Negative except as documented in HPI. Psychiatric symptoms: Negative except as documented in HPI. Endocrine symptoms: Negative except as documented in HPI. PFSH ED 2 PFSH: Medical History Atrial fibrillation Lumbar spinal stenosis Hyponatremia This has been chronic for several years. Made worse by diuretics. Negative work-up otherwise Gout Chronic kidney disease (CKD) Hypertension Diabetes mellitus type 2, controlled COPD (chronic obstructive pulmonary disease) GERD (gastroesophageal reflux disease) Physical Exam 2 Narrative: EXAM NARRATIVE: General: Alert, no acute distress. Skin: Warm, dry. Head: Normocephalic, atraumatic. Neck: Supple, trachea midline. Eye: Extraocular movements are intact. Ears, nose, mouth and throat: mucosa moist. Cardiovascular: Regular, Normal peripheral perfusion. Respiratory: Lungs are clear to auscultation, respirations are non-labored, breath sounds are equal, Symmetrical chest wall expansion. Gastrointestinal: Soft, suprapubic distention and tenderness palpation, Non distended, Normal bowel sounds. Musculoskeletal: Normal ROM, no deformity. Neurological: Alert and oriented, No focal neurological deficit observed. Psychiatric: Cooperative, appropriate mood & affect. Course 2 Vital Signs: Vital signs: Vital Signs Temperature 98.2 F 09/08/23 13:50 Pulse Rate 74 09/08/23 13:50 Respiratory Rate 17 09/08/23 14:59 Blood Pressure 174/93 09/08/23 14:59 Pulse Oximetry 100 09/08/23 14:59 Oxygen Delivery Me thod Room Air 09/08/23 14:59 MDM - Male Medical Decision Making Medical decision making: Differential diagnosis for complaint of hematuria including but not limited to and based on the above HPI, review of systems and physical exam: UTI / hemorrhagic cystitis, pyelonephritis, kidney stones, bladder cancer, concern for urinary retention. Bladder scan shows almost 2 L of urine. Orders placed to evaluate differential diagnosis based on the above differential, HPI and physical exam Lab Review: Laboratory results were reviewed and interpreted by myself the emergency room physician. Patient is always hyponatremic around 1 28-1 32. Today he is 118. White count is 10.9. Hemoglobin is 12.9. BUN and creatinine are 13 and 0.8. I reviewed the patient's medical record. Consultation: I spoke with Dr. Victor M Noel, urology at [place]. His LIBRARY TECHNICIAN had seen the patient for his initial visit and voiding trial a few days back. They are planning on cystoscopy in the near future. He recommends CBI Nelson placement and transfer to [place] as there will not be any urology coverage at [facility] this weekend. Reexamination: Patient remains stable. No altered mental status. No focal motor deficits. No increased work of breathing. Nelson catheter is being placed. I believe his hyponatremia is likely worsened from his baseline of around 128 by his drinking a large amount of water trying to flush out his bladder. Assessment and plan: Urinary retention Hematuria Hyponatremia -Three-way catheter placement and IV Rocephin for presumed urinary tract infection -Patient is being transferred to [facility] in [place]. Dr. Jory edwards at the emergency room. - Discussed findings and plan with patient. Answered any questions. - All laboratory values were reviewed and interpreted personally by myself, the ER physician - All imaging was reviewed and interpreted personally by myself, the ER physician. - Evaluation and treatment of this problem were appropriate in the emergency setting Lab Data 09/08/23 13:20 09/08/23 13:20 Laboratory Results WBC 10.90 10^3/uL (3.29-11.43) 09/08/23 13:20 RBC 4.66 10^6/uL (3.85-5.65) 09/08/23 13:20 Hgb 12.90 g/dL (11.27-16.99) 09/08/23 13:20 Hct 37.9 % (37-53) 09/08/23 13:20 MCV 81.3 fl (82-101) L 09/08/23 13:20 MCH 27.7 pg (27-33) 09/08/23 13:20 MCHC 34.0 g/dL (30-55) 09/08/23 13:20 RDW 15.1 % (12.1-15.1) 09/08/23 13:20 Plt Count 300 10^3/cmm (157-399) 09/08/23 13:20 MPV 9.7 fL (7.4-10.4) 09/08/23 13:20 Neut % (Auto) 63.9 % 09/08/23 13:20 Lymph % (Auto) 21.7 % 09/08/23 13:20 [place] % (Auto) 10.3 % 09/08/23 13:20 Eos % (Auto) 3.2 % 09/08/23 13:20 Baso % (Auto) 0.3 % 09/08/23 13:20 Neut # (Auto) 6.96 10^3/uL (1.8-7.7) 09/08/23 13:20 Lymph # (Auto) 2.4 10^3/uL (0.8-4.8) 09/08/23 13:20 [place] # (Auto) 1.1 10^3/uL (0.2-0.9) H 09/08/23 13:20 Eos # (Auto) 0.4 10^3/uL (0.0-0.8) 09/08/23 13:20 Baso # (Auto) 0.0 10^3/uL (0.0-0.1) 09/08/23 13:20 Nucleated RBC % (auto) 0 % 09/08/23 13:20 Nucleated RBCs # 0.0 /100WBC 09/08/23 13:20 Sodium 118 mmol/L (136-145) L* 09/08/23 13:20 Potassium 4.1 mmol/L (3.5-5.1) 09/08/23 13:20 Chloride 82 mmol/L (98-107) L 09/08/23 13:20 Carbon Dioxide 19 mmol/L (22-29) L 09/08/23 13:20 Anion Gap 21.1 (5-19) H 09/08/23 13:20 BUN 13 mg/dL (8-23) 09/08/23 13:20 Creatinine 0.8 mg/dL (0.7-1.2) 09/08/23 13:20 GFR Calculation Not Reportable 09/08/23 13:20 Glucose 91 mg/dL (65-115) 09/08/23 13:20 Calculated Osmolality 246 mOsm/kg (285-295) L 09/08/23 13:20 Calcium 9.3 mg/dL (8.5-10.5) 09/08/23 13:20 Total Bilirubin 0.9 mg/dL (0.15-1.2) 09/08/23 13:20 AST 26 U/L (0-40) 09/08/23 13:20 ALT 15 U/L (0-41) 09/08/23 13:20 Alkaline Phosphatase 151 U/L (40-130) H 09/08/23 13:20 Total Protein 8.3 g/dL (6.6-8.7) 09/08/23 13:20 Albumin 4.1 g/dL (3.5-5.2) 09/08/23 13:20 Globulin 4.2 g/dL (1.3-4.6) 09/08/23 13:20 Amorphous Sediment Not Reportable 09/08/23 14:56 No radiology studies performed this visit Discharge Plan Discharge Patient Disposition: Xfer Short-Term Hosp Clinical Impression: Acute urinary retention, Hyponatremia, Hematuria Condition: Stable Referrals: Anand Geiger MD [Primary Care Provider] - Coding Level of Care Code ED Manager Interventional for Clyde Perla
[2023-09-08 14:03] LABS: Basophils % 0.3 %; Eosinophils # 0.4 10^3/uL (0.0-0.8); Eosinophils % 3.2 %; Hematocrit 37.9 % (37-53); Lymphocytes # 2.4 10^3/uL (0.8-4.8); Lymphocytes % 21.7 %; Mean Corpuscular Hemoglobin 27.7 pg (27-33); Mean Corpuscular Volume 81.3 fl (82-101); Mean Platelet Volume 9.7 fL (7.4-10.4); Monocytes # 1.1 10^3/uL (0.2-0.9); Monocytes % 10.3 %; Neutrophils # 6.96 10^3/uL (1.8-7.7); Neutrophils % 63.9 %; Nucleated Red Blood Cells % 0 %; Platelet Count 300 10^3/cmm (157-399); Red Blood Count 4.66 10^6/uL (3.85-5.65); Red Cell Distribution Width 15.1 % (12.1-15.1)
[2023-09-08 14:19] LABS: Alanine Aminotransferase 15 U/L (0-41); Albumin Level 4.1 g/dL (3.5-5.2); Alkaline Phosphatase 151 U/L (40-130); Anion Gap 21.1 (5-19); Aspartate Amino Transferase 26 U/L (0-40); Blood Urea Nitrogen 13 mg/dL (8-23); Calcium 9.3 mg/dL (8.5-10.5); Carbon Dioxide 19 mmol/L (22-29); Chloride 82 mmol/L (98-107); Creatinine Clr Calc Pharmacy 105.2801; Globulin 4.2 g/dL (1.3-4.6); Glucose 91 mg/dL (65-115); Osmolality Calculated 246 mOsm/kg (285-295); Potassium 4.1 mmol/L (3.5-5.1); Total Bilirubin 0.9 mg/dL (0.15-1.2); Total Protein 8.3 g/dL (6.6-8.7)
[2023-09-08 14:20] LABS: Sodium 118 mmol/L (136-145)
--- NOTE | 2023-09-08 15:00 | PC.NURSE ---
PT STATING URGE TO URINATE, PT USED URINAL AND URINATED APPROXIMATELY 550CC OF DARK TEA RED COLOR URINE.
[2023-09-08 15:26] LABS: Protein Urine 3+ (Negative); Specific Gravity, Urine 1.015 (1.005-1.030); Urine Appearance Cloudy (CLEAR); Urine Color Red (Yellow); pH Urine 6 (5-7)
[2023-09-08 15:29] LABS: Blood Urine 3+ (Negative); Glucose Urine UA Norm (Normal); Ketones Urine 1+ (Negative); Nitrate Urine Not Tested (Negative)
[2023-09-08 15:30] LABS: Add Urine Culture? Yes; Bacteria Urine TRACE /hpf; Bilirubin Urine 1+ (Negative); Leukocyte Esterase Urine 1+ (Negative); Mucus Urine TRACE /hpf; RBC Urine TOO NUMEROUS TO CNT /hpf (0-2); Urobilinogen Urine 4 mg/dL (Negative)
--- NOTE | 2023-09-08 16:02 | PC.NURSE ---
REPORT CALLED TO HARVEY VAUGHN RN AT [id number]
[2023-09-08] MEDS: cefTRIAXone 1,000 MG in sodium chloride 0.9% (plus) 50 ML 100 MG IV (16:05)
== END 2023-09-08 18:01 | disposition short-term general hospital (02) ==
PROVIDERS: Emergency Provider Emergency Medicine; PCP Family Medicine
DX: R31.9 Hematuria, unspecified (principal); R33.9 Retention of urine, unspecified; E87.1 Hypo-osmolality and hyponatremia; E11.22 Type 2 diabetes mellitus with diabetic chronic kidney disease; I12.9 Hypertensive chronic kidney disease with stage 1 through stage 4 chronic kidney disease, or unspecified chronic kidney disease; N18.9 Chronic kidney disease, unspecified; J44.9 Chronic obstructive pulmonary disease, unspecified
CPT/HCPCS: 51702; 51798; 80053; 81001; 85025; 87086; 96365; 96366; 99284; J0696

== ENCOUNTER → 2023-09-20 12:26 | Outpatient (BNVA) | payer MEDICARE, BC, SELFPAY | PROVIDERS: PCP Family Medicine; Visit Provider Family Medicine | DX: E87.1 Hypo-osmolality and hyponatremia (principal) | CPT/HCPCS: 80053; 85025 ==

== ENCOUNTER → 2023-10-03 07:54 | Outpatient (BNVA) | payer MEDICARE, BC, SELFPAY | PROVIDERS: PCP Family Medicine; Visit Provider Podiatrist Foot & Ankle Surgery | DX: B35.1 Tinea unguium (principal); B35.3 Tinea pedis; I73.9 Peripheral vascular disease, unspecified; R73.03 Prediabetes | CPT/HCPCS: 11721 ==

== ENCOUNTER 2023-10-26 13:57 | Outpatient (RCR) | payer MEDICARE, BC, SELFPAY | END 2023-10-30 23:59 | disposition home or self-care (01) | LOC: SPT 13:57 | PROVIDERS: PCP Family Medicine; Visit Provider Family Medicine | DX: R53.1 Weakness (principal) | CPT/HCPCS: 97161 ==

== ENCOUNTER 2023-10-31 06:00 | Outpatient (RCR) | payer MEDICARE, BC, SELFPAY | END 2023-11-30 23:59 | disposition home or self-care (01) | LOC: SPT 06:00 | PROVIDERS: PCP Family Medicine; Visit Provider Family Medicine | DX: R53.1 Weakness (principal) | CPT/HCPCS: 97110; 97530 ==

== ENCOUNTER → 2023-11-17 11:21 | Outpatient (BNVA) | payer MEDICARE, BC, SELFPAY | PROVIDERS: PCP Family Medicine; Visit Provider Family Medicine | DX: I10 Essential (primary) hypertension (principal); I48.91 Unspecified atrial fibrillation; E11.9 Type 2 diabetes mellitus without complications; E87.1 Hypo-osmolality and hyponatremia | CPT/HCPCS: 80053; 83036; 85025 ==

== ENCOUNTER 2023-12-01 06:00 | Outpatient (RCR) | payer MEDICARE, BC, SELFPAY | END 2023-12-16 23:59 | disposition home or self-care (01) | LOC: SPT 06:00 | PROVIDERS: PCP Family Medicine; Visit Provider Family Medicine | DX: M62.81 Muscle weakness (generalized) (principal) | CPT/HCPCS: 97110; 97116 ==

== ENCOUNTER → 2023-12-05 07:59 | Outpatient (BNVA) | payer MEDICARE, BC, SELFPAY | PROVIDERS: PCP Family Medicine; Visit Provider Podiatrist Foot & Ankle Surgery | DX: B35.1 Tinea unguium (principal); B35.3 Tinea pedis; I73.9 Peripheral vascular disease, unspecified; R73.03 Prediabetes; M79.671 Pain in right foot; M79.672 Pain in left foot | CPT/HCPCS: 11721 ==

== ENCOUNTER → 2024-01-24 09:10 | Outpatient (BNVA) | payer MEDICARE, BC, SELFPAY | PROVIDERS: PCP Family Medicine; Visit Provider Thoracic Surgery (Cardiothoracic Vascular Surgery) | DX: L89.312 Pressure ulcer of right buttock, stage 2 (principal) | CPT/HCPCS: 97597; 99213 ==

== ENCOUNTER → 2024-01-31 09:04 | Outpatient (BNVA) | payer MEDICARE, BC, SELFPAY | PROVIDERS: PCP Family Medicine; Visit Provider Thoracic Surgery (Cardiothoracic Vascular Surgery) | DX: Z09 Encounter for follow-up examination after completed treatment for conditions other than malignant neoplasm (principal); Z87.2 Personal history of diseases of the skin and subcutaneous tissue | CPT/HCPCS: 99212 ==

== ENCOUNTER → 2024-02-06 08:34 | Outpatient (BNVA) | payer MEDICARE, BC, SELFPAY | PROVIDERS: PCP Family Medicine; Visit Provider Podiatrist Foot & Ankle Surgery | DX: B35.1 Tinea unguium (principal); I73.9 Peripheral vascular disease, unspecified; R73.03 Prediabetes; M79.671 Pain in right foot; M79.672 Pain in left foot | CPT/HCPCS: 11721 ==

== ENCOUNTER 2024-03-28 09:07 | Emergency (ER) | payer MEDICARE, BC, SELFPAY ==
[2024-03-28 09:18] VITALS: BP 164/81; PULSE 96; RESP 16; TEMP 36.2; O2SAT 97; BMI 35.9
--- NOTE | 2024-03-28 09:20 | XRR_ITS ---
PROCEDURE INFORMATION: Exam: XR Chest Exam date and time: 03/28/2024 9:33 AM Age: 73 years old Clinical indication: Other: Leg swelling TECHNIQUE: Imaging protocol: Radiologic exam of the chest. Views: 1 view. COMPARISON: [place] [id number] 01/14/2023 2:00 PM FINDINGS: Lungs: Retrocardiac and left lower lobe infiltrates. Pleural spaces: Unremarkable. No pleural effusion. No pneumothorax. Heart/Mediastinum: Unremarkable. No cardiomegaly. Vasculature: Atherosclerotic disease of the aortic arch. Bones/joints: Diffuse degenerative change of the visualized osseous structures. Chronic posttraumatic change of the left clavicle. XR/XR chest 1V portable [id number] IMPRESSION: Left lower lobe infiltrates, nonspecific, correlate with patient presentation for infection, aspiration. Much less likely volume overload, however not entirely excluded.
--- NOTE | 2024-03-28 09:25 | ED_ITS ---
HPI - Extremity Problem 2 General: Chief complaint: Extremity Problem,Nontraumatic Stated complaint: fluid draining from leg Time Seen by Provider: 03/28/24 09:16 Source: patient Mode of arrival: ambulatory Limitations: no limitations History of Present Illness: 73-year-old male states he has been havi ng some increased lower extremity edema with some drainage. He states he is supposed be on Lasix but has been off it for quite some time he denies any shortness of breath denies any pain denies any fevers. Associated symptoms: Deny chest pain, fever(s) or rash Related Data Home Medications Medication Instructions Recorded Confirmed aspirin 325 mg tablet 325 mg PO QAM 02/28/23 03/28/24 naproxen 500 mg tablet 500 mg PO BID PRN Pain 08/28/23 03/28/24 omeprazole 20 mg capsule,delayed 20 mg PO DAILY 08/28/23 03/28/24 release tamsulosin 0.4 mg capsule 0.4 mg PO DAILY 09/29/23 03/28/24 Previous Rx's Medication Instructions Recorded clonidine HCl 0.1 mg tablet 0.1 mg PO BID #60 tabs 11/17/23 carvedilol 12.5 mg tablet 12.5 mg PO BID #60 tabs 03/12/24 furosemide 40 mg tablet (Lasix) 40 mg PO QAM #30 tabs 03/28/24 Allergies Allergy/AdvReac Type Severity Reaction Status Date / Time oxycodone Allergy ADR-Itching Verified 02/06/24 08:38 fentanyl AdvReac Intermediate made him Verified 02/06/24 08:38 paranoid Review of Systems 2 Const: Denies: fever(s), chills, body aches or change in appetite ENMT: Denies: throat pain or dental pain Card: Denies: chest pain Resp: Denies: dyspnea GI: Denies: abdominal pain, nausea, vomiting or diarrhea Musc: Reports: extremity swelling; Denies: neck pain or back pain Skin/Breast: Denies: rash Neuro: Denies: headache(s) PFSH ED 2 PFSH: Medical History Atrial fibrillation Lumbar spinal stenosis Hyponatremia This has been chronic for several years. Made worse by diuretics. Negative work-up otherwise Gout Chronic kidney disease (CKD) Hypertension Diabetes mellitus type 2, controlled COPD (chronic obstructive pulmonary disease) GERD (gastroesophageal reflux disease) Social History Smoking and tobacco/nicotine status: never used tobacco/nicotine Physical Exam 2 Const: COMMON NORMALS: no acute distress, patient oriented x3 and healthy appearing HENMT: COMMON NORMALS: normocephalic and atraumatic HEAD & SCALP: n ormocephalic and atraumatic Neck/C-Spine: COMMON NORMALS: full ROM and supple Chest: COMMONS NORMALS: normal inspection of the chest Resp: COMMON NORMALS: normal respiratory effort, No retractions, No use of accessory muscles and clear to auscultation bilaterally AUSCULTATION: clear to auscultation bilaterally Cardio: COMMON NORMALS: regular rate, regular rhythm and No murmurs present (Cardio) RATE: regular rate RHYTHM: regular rhythm Extremity: COMMON NORMALS: full ROM NARRATIVE EXTREMITY EXAM: 2+ edema Neuro: COMMON NORMALS: patient oriented x3, moves all extremities and no focal motor deficits Psych: COMMON NORMALS: mental status grossly normal, Normal thought process present and cooperative THOUGHT PROCESS: Normal thought process present Skin: COMMON NORMALS: no rashes or lesions noted and no wounds GENERAL SKIN EXAM: no rashes or lesions noted Course 2 Vital Signs: Vital signs: Vital Signs Temperature 97.1 F L 03/28/24 09:18 Pulse Rate 96 03/28/24 09:18 Respiratory Rate 16 03/28/24 09:18 Blood Pressure 164/81 03/28/24 09:18 Pulse Oximetry 97 03/28/24 09:18 Oxygen Delivery Me thod Room Air 03/28/24 09:18 MDM - Extremity (Nontraumatic) Medical Decision Making Patient presents here with lower extremity edema did give him a dose of Lasix here has had no shortness of breath no cough no fever little fluid overloaded on his chest x-ray no signs of pneumonia we will start him back on Lasix he is to follow-up with PCP and return if worsening he understands agrees to plan. Medical Records I reviewed the patient's medical records. Lab Data I reviewed the patient's lab results. 03/28/24 09:31 03/28/24 09:31 Radiology Impressions Chest X-Ray 03/28/24 09:20 IMPRESSION: Left lower lobe infiltrates, nonspecific, correlate with patient presentation for infection, aspiration. Much less likely volume overload, however not entirely excluded. Laboratory Results WBC 7.88 10^3/uL (3.29-11.43) 03/28/24 09:31 RBC 4.46 10^6/uL (3.85-5.65) 03/28/24 09:31 Hgb 11.50 g/dL (11.27-16.99) 03/28/24 09: Hct 35.3 % (37-53) L 03/28/24 09:31 MCV 79.1 fl (82-101) L 03/28/24 09:31 MCH 25.8 pg (27-33) L 03/28/24 09: MCHC 32.6 g/dL (30-55) 03/28/24 09: RDW 15.9 % (12.1-15.1) H 03/28/24 09:31 Plt Count 261 10^3/cmm (157-399) 03/28/24 09:31 MPV 10.9 fL (7.4-10.4) H 03/28/24 09:31 Neut % (Auto) 62.4 % 03/28/24 09:31 Lymph % (Auto) 22.5 % 03/28/24 09:31 [place] % (Auto) 10.2 % 03/28/24 09:31 Eos % (Auto) 4.2 % 03/28/24 09:31 Baso % (Auto) 0.4 % 03/28/24 09:31 Neut # (Auto) 4.93 10^3/uL (1.8-7.7) 03/28/24 09:31 Lymph # (Auto) 1.8 10^3/uL (0.8-4.8) 03/28/24 09:31 [place] # (Auto) 0.8 10^3/uL (0.2-0.9) 03/28/24 09:31 Eos # (Auto) 0.3 10^3/uL (0.0-0.8) 03/28/24 09:31 Baso # (Auto) 0.0 10^3/uL (0.0-0.1) 03/28/24 09:31 Nucleated RBC % (auto) 0 % 03/28/24 09:31 Nucleated RBCs # 0.0 /100WBC 03/28/24 09:31 Sodium 129 mmol/L (136-145) L 03/28/24 09:31 Potassium 4.3 mmol/L (3.5-5.1) 03/28/24 09:31 Chloride 96 mmol/L (98-107) L 03/28/24 09:31 Carbon Dioxide 21 mmol/L (22-29) L 03/28/24 09:31 Anion Gap 16.3 (5-19) 03/28/24 09:31 BUN 17 mg/dL (8-23) 03/28/24 09:31 Creatinine 0.9 mg/dL (0.7-1.2) 03/28/24 09:31 GFR Calculation Not Reportable 03/28/24 09:31 Glucose 133 mg/dL (65-115) H 03/28/24 09:31 Calculated Osmolality 271 mOsm/kg (285-295) L 03/28/24 09:31 Calcium 9.0 mg/dL (8.5-10.5) 03/28/24 09:31 Total Bilirubin 0.6 mg/dL (0.15-1.2) 03/28/24 09:31 AST 20 U/L (0-40) 03/28/24 09:31 ALT 10 U/L (0-41) 03/28/24 09:31 Alkaline Phosphatase 134 U/L (40-130) H 03/28/24 09:31 NT-Pro-B Natriuret Pep 1189 pg/mL (0-450) H 03/28/24 09:31 Total Protein 7.2 g/dL (6.6-8.7) 03/28/24 09:31 Albumin 3.6 g/dL (3.5-5.2) 03/28/24 09:31 Globulin 3.6 g/dL (1.3-4.6) 03/28/24 09:31 XR interpretation done by ED provider, pending radiology final review Discharge Plan Discharge Patient Disposition: Home Clinical Impression: Lower extremity edema Condition: Stable Prescriptions: New furosemide [Lasix] 40 mg tablet 40 mg PO QAM Qty: 30 0RF No Action tamsulosin 0.4 mg capsule 0.4 mg PO DAILY aspirin 325 mg tablet 325 mg PO QAM clonidine HCl 0.1 mg tablet 0.1 mg PO BID Qty: 60 11RF carvedilol 12.5 mg tablet 12.5 mg PO BID Qty: 60 11RF omeprazole 20 mg Capsule,Delayed Release(Dr/Ec) 20 mg PO DAILY naproxen 500 mg tablet 500 mg PO BID PRN (Reason: Pain) Discharge Orders: Discharge ED (Routine); Ordered 03/28/24 Ordered By: Karolina Marr Referrals: Anand Geiger MD [Primary Care Provider] - 4-7 days Discharge Diet: Advance as tolerated Discharge Activity: Resume usual activity Patient Instructions: Leg Edema (ED) Coding Level of Care Code ED Film Projector Operator for Clyde Perla
[2024-03-28] MEDS: FUROsemide 10 mg/mL SDV 10mL 60 MG IVP (09:33)
[2024-03-28 09:44] LABS: Basophils % 0.4 %; Eosinophils # 0.3 10^3/uL (0.0-0.8); Eosinophils % 4.2 %; Hematocrit 35.3 % (37-53); Lymphocytes # 1.8 10^3/uL (0.8-4.8); Lymphocytes % 22.5 %; Mean Corpuscular HGB Conc 32.6 g/dL (30-55); Mean Corpuscular Hemoglobin 25.8 pg (27-33); Mean Corpuscular Volume 79.1 fl (82-101); Mean Platelet Volume 10.9 fL (7.4-10.4); Monocytes # 0.8 10^3/uL (0.2-0.9); Monocytes % 10.2 %; Neutrophils # 4.93 10^3/uL (1.8-7.7); Neutrophils % 62.4 %; Nucleated Red Blood Cells % 0 %; Platelet Count 261 10^3/cmm (157-399); Red Blood Count 4.46 10^6/uL (3.85-5.65); Red Cell Distribution Width 15.9 % (12.1-15.1); White Blood Count 7.88 10^3/uL (3.29-11.43)
[2024-03-28 10:12] LABS: Alanine Aminotransferase 10 U/L (0-41); Albumin Level 3.6 g/dL (3.5-5.2); Alkaline Phosphatase 134 U/L (40-130); Anion Gap 16.3 (5-19); Aspartate Amino Transferase 20 U/L (0-40); Blood Urea Nitrogen 17 mg/dL (8-23); Carbon Dioxide 21 mmol/L (22-29); Chloride 96 mmol/L (98-107); Creatinine Clr Calc Pharmacy 89.4344; Globulin 3.6 g/dL (1.3-4.6); Glucose 133 mg/dL (65-115); NT Pro B Type Natriuretic Pept 1189 pg/mL (0-450); Osmolality Calculated 271 mOsm/kg (285-295); Potassium 4.3 mmol/L (3.5-5.1); Sodium 129 mmol/L (136-145); Total Bilirubin 0.6 mg/dL (0.15-1.2); Total Protein 7.2 g/dL (6.6-8.7)
[2024-03-28 10:23] VITALS: BP 105/79; PULSE 87; O2SAT 98
[2024-03-28 10:53] VITALS: BP 161/94; PULSE 79; O2SAT 96
[2024-03-28 11:53] VITALS: PULSE 94; O2SAT 99
[2024-03-28 13:10] VITALS: BP 180/90; PULSE 82; O2SAT 97
== END 2024-03-28 13:16 | disposition home or self-care (01) ==
PROVIDERS: Emergency Provider Emergency Medicine; PCP Family Medicine
DX: R60.0 Localized edema (principal); Z79.82 Long term (current) use of aspirin; E11.22 Type 2 diabetes mellitus with diabetic chronic kidney disease; I12.9 Hypertensive chronic kidney disease with stage 1 through stage 4 chronic kidney disease, or unspecified chronic kidney disease; N18.9 Chronic kidney disease, unspecified; J44.9 Chronic obstructive pulmonary disease, unspecified
CPT/HCPCS: 36415; 71045; 80053; 83880; 85025; 96374; 99284; J1940

== ENCOUNTER → 2024-04-11 07:16 | Outpatient (BNVA) | payer MEDICARE, BC, SELFPAY | PROVIDERS: PCP Family Medicine; Visit Provider Podiatrist Foot & Ankle Surgery | DX: B35.1 Tinea unguium (principal); I73.9 Peripheral vascular disease, unspecified; R73.03 Prediabetes | CPT/HCPCS: 11721 ==

== ENCOUNTER → 2024-04-19 09:06 | Outpatient (BNVA) | payer MEDICARE, BC, SELFPAY | PROVIDERS: PCP Family Medicine; Visit Provider Family Medicine | DX: I10 Essential (primary) hypertension (principal); I48.91 Unspecified atrial fibrillation; E87.1 Hypo-osmolality and hyponatremia; I87.2 Venous insufficiency (chronic) (peripheral) | CPT/HCPCS: 80048 ==

== ENCOUNTER → 2024-06-13 07:12 | Outpatient (BNVA) | payer MEDICARE, BC, SELFPAY | PROVIDERS: PCP Family Medicine; Visit Provider Podiatrist Foot & Ankle Surgery | DX: B35.1 Tinea unguium (principal); I73.9 Peripheral vascular disease, unspecified; R73.03 Prediabetes; M79.671 Pain in right foot; M79.672 Pain in left foot | CPT/HCPCS: 11721 ==

== ENCOUNTER → 2024-06-21 10:42 | Outpatient (BNVA) | payer MEDICARE, BC, SELFPAY | PROVIDERS: PCP Family Medicine; Visit Provider Family Medicine | DX: I10 Essential (primary) hypertension (principal); I48.91 Unspecified atrial fibrillation; E11.9 Type 2 diabetes mellitus without complications; E87.1 Hypo-osmolality and hyponatremia; N18.9 Chronic kidney disease, unspecified | CPT/HCPCS: 80053; 83036; 85025 ==

== ENCOUNTER → 2024-08-15 07:12 | Outpatient (BNVA) | payer MEDICARE, BC, SELFPAY | PROVIDERS: PCP Family Medicine; Visit Provider Podiatrist Foot & Ankle Surgery | DX: I73.9 Peripheral vascular disease, unspecified (principal); B35.1 Tinea unguium; L84 Corns and callosities; R73.03 Prediabetes; M79.671 Pain in right foot; M79.672 Pain in left foot | CPT/HCPCS: 11056; 11721; 99213 ==

== ENCOUNTER 2024-09-07 07:54 | Inpatient (IN) | payer MEDICARE, BC, SELFPAY ==
[2024-09-07 08:05] VITALS: BP 145/80; PULSE 89; RESP 16; TEMP 36.4; O2SAT 98
[2024-09-07 08:27] LABS: Basophils % 0.3 %; Eosinophils # 0.3 10^3/uL (0.0-0.8); Eosinophils % 4.2 %; Hematocrit 34.2 % (37-53); Lymphocytes # 1.7 10^3/uL (0.8-4.8); Lymphocytes % 22.5 %; Mean Corpuscular HGB Conc 32.2 g/dL (30-55); Mean Corpuscular Hemoglobin 25.5 pg (27-33); Mean Corpuscular Volume 79.4 fl (82-101); Mean Platelet Volume 10.1 fL (7.4-10.4); Monocytes # 0.8 10^3/uL (0.2-0.9); Monocytes % 10.8 %; Neutrophils # 4.77 10^3/uL (1.8-7.7); Neutrophils % 61.9 %; Nucleated Red Blood Cells % 0 %; Platelet Count 220 10^3/cmm (157-399); Red Blood Count 4.31 10^6/uL (3.85-5.65); Red Cell Distribution Width 17.3 % (12.1-15.1); White Blood Count 7.69 10^3/uL (3.29-11.43)
[2024-09-07 08:32] LABS: Erythrocyte Sedimentation Rate 58 mm/hr (0-10)
[2024-09-07 08:43] LABS: Lactic Sepsis W/Reflex 2.2 mmol/L (0.5-2.2)
[2024-09-07 08:55] LABS: Alanine Aminotransferase 10 U/L (0-41); Albumin Level 3.3 g/dL (3.5-5.2); Alkaline Phosphatase 111 U/L (40-130); Anion Gap 17.9 (5-19); Aspartate Amino Transferase 16 U/L (0-40); Blood Urea Nitrogen 15 mg/dL (8-23); C Reactive Protein 53.5 mg/L (0.0-4.9); Calcium 8.4 mg/dL (8.5-10.5); Carbon Dioxide 21 mmol/L (22-29); Chloride 97 mmol/L (98-107); Creatinine Clr Calc Pharmacy 80.4909; Glucose 135 mg/dL (65-115); NT Pro B Type Natriuretic Pept 1268 pg/mL (0-450); Osmolality Calculated 277 mOsm/kg (285-295); Potassium 3.9 mmol/L (3.5-5.1); Sodium 132 mmol/L (136-145); Total Protein 7.3 g/dL (6.6-8.7)
[2024-09-07 09:31] LABS: Reflex Lactate Order REFLEX LACTIC ORDERD
--- NOTE | 2024-09-07 09:37 | W.ED.EXTPRO ---
HPI - Extremity Problem General: Chief complaint: Extremity Injury, Lower Stated complaint: fluid coming out of ankle Time Seen by Provider: 09/07/24 08:08 History of Present Illness: 73-year-old man with history of atrial fibrillation, hypertension, diabetes, COPD and chronic kidney disease who presents emergency room with worsening redness swelling and drainage from his right lower leg. He says he is had this become infected before. He has had cellulitis before. He said about 10 days ago he started having weeping. He denies diabetes although it is listed in the history. Nonpainful. No systemic fevers. Related Data Home Medications ?Medication ?Instructions ?Recorded ?Confirmed aspirin 325 mg tablet 325 mg PO QAM 02/28/23 09/07/24 tamsulosin 0.4 mg capsule 0.4 mg PO DAILY 09/29/23 09/07/24 furosemide 40 mg tablet (Lasix) 40 mg PO QAM 06/21/24 09/07/24 Previous Rx's ?Medication ?Instructions ?Recorded clonidine HCl 0.1 mg tablet 0.1 mg PO BID #60 tabs 11/17/23 carvedilol 12.5 mg tablet 12.5 mg PO BID #60 tabs 03/12/24 Allergies Allergy/AdvReac Type Severity Reaction Status Date / Time oxycodone Allergy ADR-Itching Verified 08/15/24 07:14 fentanyl AdvReac Intermediate made him Verified 08/15/24 07:14 paranoid Review of Systems Narrative: Constitutional symptoms: Negative except as documented in HPI. Skin symptoms: Negative except as documented in HPI. Eye symptoms: Negative except as documented in HPI. ENMT symptoms: Negative except as documented in HPI. Respiratory symptoms: Negative except as documented in HPI. Cardiovascular symptoms: Negative except as documented in HPI. Gastrointestinal symptoms: Negative except as documented in HPI. Genitourinary symptoms: Negative except as documented in HPI. Musculoskeletal symptoms: Negative except as documented in HPI. Neurologic symptoms: Negative except as documented in HPI. Psychiatric symptoms: Negative except as documented in HPI. Endocrine symptoms: Negative except as documented in HPI. PFS ED PFSH: Medical History Atrial fibrillation Lumbar spinal stenosis Hyponatremia This has been chronic for several years. Made worse by diuretics. Negative work-up otherwise Gout Chronic kidney disease (CKD) Hypertension Diabetes mellitus type 2, controlled COPD (chronic obstructive pulmonary disease) GERD (gastroesophageal reflux disease) Social History Smoking and tobacco/nicotine status: unknown if used tobacco/nicotine Physical Exam Narrative: EXAM NARRATIVE: General: Alert, no acute distress. Skin: Warm, dry. Erythema and skin peeling. See photograph below Head: Normocephalic, atraumatic. Neck: Supple, trachea midline. Eye: Extraocular movements are intact. Ears, nose, mouth and throat: mucosa moist. Cardiovascular: Regular, Normal peripheral perfusion. Respiratory: Lungs are clear to auscultation, respirations are non-labored, breath sounds are equal, Symmetrical chest wall expansion. 2+ edema/venous stasis Gastrointestinal: Soft, Nontender, Non distended Musculoskeletal: Normal ROM, no deformity. Neurological: Alert and oriented, No focal neurological deficit observed. Psychiatric: Cooperative, appropriate mood & affect. Course Vital Signs: Vital signs: Vital Signs Temperature 97.6 F 09/07/24 08:05 Pulse Rate 89 09/07/24 08:05 Respiratory Rate 16 09/07/24 08:05 Blood Pressure 145/80 09/07/24 08:05 Pulse Oximetry 98 09/07/24 08:05 Oxygen Delivery Me thod Room Air 09/07/24 08:05 MDM - Extremity (Nontraumatic) Medical Decision Making Medical decision making: Differential diagnosis including but not limited to and based on the above HPI, review of systems and physical exam: Orders placed to evaluate differential diagnosis based on the above differential, HPI and physical exam: Patient appears to have a cellulitis. Basic lab work, ESR, CRP and blood cultures ordered along with a lactate. Evaluate severity of infection. Lab Review: Laboratory results were reviewed and interpreted by myself the emergency room physician. No leukocytosis. No renal failure. Lactate is mildly elevated at 2.2. CRP is elevated at 54. ESR is elevated at 58. I reviewed the patient's medical record. Reexamination: Patient remained stable. No increased work of breathing. No altered mental status. No focal motor deficits. Consultation: I spoke with Dr. Clarke who is on-call for podiatry. He agrees with admission on IV antibiotics. Recommends x-rays to evaluate for erosion/osteomyelitis. Hospitalist can consult officially if needed but likely can just follow-up in clinic after IV antibiotics. Consultation: I spoke with Dr. De Dios who is on-call for the hospitalist service who agrees to admission. Assessment and plan: Lower extremity cellulitis ?Cefepime and Zyvox in the emergency room. -I discussed the patient with the hospitalist on-call who is admitting the patient. - Discussed findings and plan with patient. Answered any questions. - All laboratory values were reviewed and interpreted personally by myself, the ER physician - All imaging was reviewed and interpreted personally by myself, the ER physician. - Evaluation and treatment of this problem were appropriate in the emergency setting Lab Data 09/07/24 08:19 09/07/24 08:19 Radiology Impressions Ankle X-Ray 09/07/24 09:47 IMPRESSION: Mild osteoarthritis. No acute bone or joint abnormality identified. Tibia/Fibula X-Ray 09/07/24 09:47 IMPRESSION: No acute bone abnormality of the tibia or fibula. Laboratory Results WBC 7.69 10^3/uL (3.29-11.43) 09/07/24 08:19 RBC 4.31 10^6/uL (3.85-5.65) 09/07/24 08:19 Hgb 11.00 g/dL (11.27-16.99) L 09/07/24 08:19 Hct 34.2 % (37-53) L 09/07/24 08:19 MCV 79.4 fl (82-101) L 09/07/24 08:19 MCH 25.5 pg (27-33) L 09/07/24 08:19 MCHC 32.2 g/dL (30-55) 09/07/24 08:19 RDW 17.3 % (12.1-15.1) H 09/07/24 08:19 Plt Count 220 10^3/cmm (157-399) 09/07/24 08:19 MPV 10.1 fL (7.4-10.4) 09/07/24 08:19 Neut % (Auto) 61.9 % 09/07/24 08:19 Lymph % (Auto) 22.5 % 09/07/24 08:19 [place] % (Auto) 10.8 % 09/07/24 08:19 Eos % (Auto) 4.2 % 09/07/24 08:19 Baso % (Auto) 0.3 % 09/07/24 08:19 Neut # (Auto) 4.77 10^3/uL (1.8-7.7) 09/07/24 08:19 Lymph # (Auto) 1.7 10^3/uL (0.8-4.8) 09/07/24 08:19 [place] # (Auto) 0.8 10^3/uL (0.2-0.9) 09/07/24 08:19 Eos # (Auto) 0.3 10^3/uL (0.0-0.8) 09/07/24 08:19 Baso # (Auto) 0.0 10^3/uL (0.0-0.1) 09/07/24 08:19 Nucleated RBC % (auto) 0 % 09/07/24 08:19 Nucleated RBCs # 0.0 /100WBC 09/07/24 08:19 ESR 58 mm/hr (0-10) H 09/07/24 08:19 Sodium 132 mmol/L (136-145) L 09/07/24 08:19 Potassium 3.9 mmol/L (3.5-5.1) 09/07/24 08:19 Chloride 97 mmol/L (98-107) L 09/07/24 08:19 Carbon Dioxide 21 mmol/L (22-29) L 09/07/24 08:19 Anion Gap 17.9 (5-19) 09/07/24 08:19 BUN 15 mg/dL (8-23) 09/07/24 08:19 Creatinine 1.0 mg/dL (0.7-1.2) 09/07/24 08:19 GFR Calculation Not Reportable 09/07/24 08:19 Glucose 135 mg/dL (65-115) H 09/07/24 08:19 Calculated Osmolality 277 mOsm/kg (285-295) L 09/07/24 08:19 Lactic Acid 2.2 mmol/L (0.5-2.2) 09/07/24 08:19 Calcium 8.4 mg/dL (8.5-10.5) L 09/07/24 08:19 Total Bilirubin 1.0 mg/dL (0.15-1.2) 09/07/24 08:19 AST 16 U/L (0-40) 09/07/24 08:19 ALT 10 U/L (0-41) 09/07/24 08:19 Alkaline Phosphatase 111 U/L (40-130) 09/07/24 08:19 C-Reactive Protein 53.5 mg/L (0.0-4.9) H 09/07/24 08:19 NT-Pro-B Natriuret Pep 1268 pg/mL (0-450) H 09/07/24 08:19 Total Protein 7.3 g/dL (6.6-8.7) 09/07/24 08:19 Albumin 3.3 g/dL (3.5-5.2) L 09/07/24 08:19 Globulin 4.0 g/dL (1.3-4.6) 09/07/24 08:19 All radiology interpretation(s) finalized by discharge Discharge Plan Discharge Patient Disposition: Admitted As Inpatient Clinical Impression: Cellulitis of right lower extremity, Venous stasis dermatitis Condition: Stable Coding Level of Care Code ED [employer] Supervisor for Clyde Perla
--- NOTE | 2024-09-07 09:47 | XR_ITS ---
WS: [id number] XR ankle RT min 3V* 27840 REASON FOR EXAM: r/o osteo FINDINGS: Diffuse soft tissue swelling about the ankle. No acute fracture or focal bone lesion. No bone erosion or periosteal reaction. The joint spaces are intact and relatively well preserved. Moderate subchondral sclerosis in the tibiotalar joint. XR/XR ankle RT min 3V* 12006 IMPRESSION: Mild osteoarthritis. No acute bone or joint abnormality identified.
--- NOTE | 2024-09-07 09:47 | XR_ITS ---
WS: [id number] XR tibia fibula RT 2V [id number] REASON FOR EXAM: r/o osteo FINDINGS: There is a deformity of the medial tibial plateau which likely represents an old minimally displaced minimally depressed tibial plateau fracture. No focal bone erosion or periosteal reaction is identified. Arterial vascular calcifications noted near the ankle. XR/XR tibia fibula RT 2V 18905 IMPRESSION: No acute bone abnormality of the tibia or fibula.
[2024-09-07 10:41] VITALS: BP 139/70; PULSE 74; O2SAT 98
[2024-09-07] MEDS: cefepime 2,000 mg SDV 2000 MG IVP (11:11)
[2024-09-07] MEDS: linezolid premix 600 MG/300 ML PREMIX 300 MG IV (11:11)
--- NOTE | 2024-09-07 12:19 | PM.HP ---
Providers/Chief Complaint Admitting Physician: Eloy De Dios Primary Care Provider: Anand Geiger MD Chief Complaint: fluid coming out of ankle History of Present Illness Mr. Christopher presents with a worsening leg wound that started a couple of days ago. The affected area has become redder and is now weeping fluid. He experienced a similar episode in the past that required treatment, and he attempted to manage it at home by removing his bandages to let the area air out, which led to further deterioration. He denies fever, chills, chest pain, nausea, vomiting, diarrhea, and urinary symptoms, and states that he is not experiencing any pain at the wound site. He also mentions his chronic shortness of breath due to COPD, although there is no change from his baseline. Review of Systems Const: Denies: fever(s), chills, body aches or malaise ENMT: Denies: throat pain Card: Denies: chest pain, edema, pre-syncope or dyspnea on exertion Resp: Denies: dyspnea, productive cough, change in phlegm color or hemoptysis GI: Denies: abdominal pain, nausea, vomiting, diarrhea, constipation, hematochezia or melena : Denies: flank pain, difficulty urinating, urinary frequency or hematuria Musc: Denies: back pain, joint swelling or joint redness Skin/Breast: Reports: erythema, sores and other (Weeping) Neuro: Denies: headache(s) or confusion Medications/Allergies Home Medications ?Medication ?Instructions ?Recorded ?Confirmed ?Last Taken ?Type aspirin 325 mg tablet 325 mg PO QAM 02/28/23 09/07/24 09/07/24 History tamsulosin 0.4 mg capsule 0.4 mg PO DAILY 09/29/23 09/07/24 09/07/24 History clonidine HCl 0.1 mg tablet 0.1 mg PO BID #60 tabs 11/17/23 09/07/24 09/07/24 Rx carvedilol 12.5 mg tablet 12.5 mg PO BID #60 tabs 03/12/24 09/07/24 09/07/24 Rx furosemide 40 mg tablet (Lasix) 40 mg PO QAM 06/21/24 09/07/24 09/07/24 History Allergies Allergy/AdvReac Type Severity Reaction Status Date / Time oxycodone Allergy ADR-Itching Verified 08/15/24 07:14 fentanyl AdvReac Intermediate made him Verified 08/15/24 07:14 paranoid PFSH Acute PFSH: Medical History Atrial fibrillation Lumbar spinal stenosis Hyponatremia This has been chronic for several years. Made worse by diuretics. Negative work-up otherwise Gout Chronic kidney disease (CKD) Hypertension Diabetes mellitus type 2, controlled COPD (chronic obstructive pulmonary disease) GERD (gastroesophageal reflux disease) Social History Smoking and tobacco/nicotine status: unknown if used tobacco/nicotine Vitals/I&O/Wt Last Vital Signs Temp 97.6 F 09/07/24 08:05 Pulse 74 09/07/24 10:41 Resp 16 09/07/24 08:05 BP 139/70 09/07/24 10:41 Pulse Ox 98 09/07/24 10:41 O2 Del Method Room Air 09/07/24 10:41 Weight last 48 hrs Weight 113.398 kg Physical Exam Const: COMMON NORMALS: patient oriented x3 and alert GENERAL APPEARANCE: cooperative ORIENTATION/CONSCIOUSNESS: Yes awake HENMT: COMMON NORMALS: oropharynx normal Neck/C-Spine: COMMON NORMALS: no JVD Resp: COMMON NORMALS: normal respiratory effort and clear to auscultation bilaterally AUSCULTATION: clear to auscultation bilaterally Cardio: COMMON NORMALS: no JVD, regular rhythm, S1 normal heart sound present, S2 normal heart sound present and No murmurs present (Cardio) RHYTHM: regular rhythm HEART SOUNDS: S1 normal heart sound present and S2 normal heart sound present GI: COMMON NORMALS: Normal to inspection, nondistended, normoactive bowel sounds present, Soft to palpation and non-tender PALPATION: Yes Soft to palpation Extremity: COMMON NORMALS: no joint enlargement GENERAL: Yes edema (2+) Neuro: COMMON NORMALS: patient oriented x3 and moves all extremities SENSORIUM/ORIENTATION: Yes alert Skin: NARRATIVE SKIN EXAM: Erythematous band encircling the distal right lower extremity above right ankle almost circumferential except for the posterior aspect, with shallow ulceration of about 2-1/2 cm diameter over the lateral aspect. Warm to touch. Without purulence. Development no weeping. Mild edema. GENERAL SKIN EXAM: no rashes or lesions noted Data 09/07/24 08:19 09/07/24 08:19 Micro: Microbiology 09/07/24 08:21 Blood Culture - Preliminary Blood SPECIMEN COLLECTED 09/07/24 08:19 Blood Culture - Preliminary Blood SPECIMEN COLLECTED A&P Assessment and plan (1) Cellulitis of right lower extremity: Moderate and improving cellulitis and right lower extremity shallow ulcer, likely venous insufficiency ulcer, possible source of the cellulitis. With recent redness, tenderness, weeping, without purulence. Received cefepime dose, will continue with ceftriaxone empirically. Monitor for risk of cytopenia, Bell-Renzo syndrome, C. difficile. Obtain MRSA PCR nasal swab. Discussed with clinic specialist, appreciate consultation. Reviewed vitals, CBC, CMP, ankle x-ray, tibial x-ray, ER provider note, discussed with ER provider. Discussed with him to elevate right lower extremity. Will assess venous duplex ultrasound to exclude DVT. Plan Atrial fibrillation: Continue aspirin, carvedilol CKD: Reviewed chemistry, reassess DM2: SSI, monitor POC glucose. Consistent carb diet. COPD: Without exacerbation. DuoNeb as needed. BPH: Flomax Other medical problems PDMP PDMP Reviewed: Not Reviewed Attestations Medical Necessity Statement*: Place in observation for assessment management of moderate on improving cellulitis of right lower extremity with underlying likely venous insufficiency in a gentleman of advanced age with diabetes, CKD, and other multiple comorbidities. and High MDM includes amount and/or complexity of data reviewed/ordered [ previous or external records, resulted lab(s)/test(s), ordered lab(s)/test(s) and other healthcare professional discussion] and described risk of complication, morbidity or mortality of management as documented Diagnoses Cellulitis of right lower extremity L03.115
[2024-09-07 13:17] VITALS: BP 166/90; PULSE 86; O2SAT 100
--- NOTE | 2024-09-07 13:48 | USCV_ITS ---
Monyt Christopher Age: 73 Gender: M : 1950 Exam Date: 09/07/2024 15:56 Ordering Phys: Eloy De Dios MD Technologist: [place] [facility]: rt leg swelling and ulcers PROCEDURES: Venous duplex imaging was performed in only the right lower extremity. The following venous structures were evaluated: common femoral vein, profunda vein, proximal portion of the greater saphenous vein, superficial femoral vein, and the popliteal vein. In addition, the posterior tibial and peroneal trunk were evaluated. FINDINGS: Normal 2-D Doppler and augmentation and compressibility throughout the lower extremity venous structures. Additional imaging through the proximal calf veins also reveals no thrombus. Limited evaluation of the greater saphenous vein is patent with no thrombus. CONCLUSIONS No evidence of right lower extremity DVT. Jose Mckinnon MD (Electronically Signed) Final Date: 07 Sep 2024 16:12 S
--- NOTE | 2024-09-07 14:02 | P.CONIM_ITS ---
<Statement entered by Juan Pablo May MD - 09/10/24 07:54> I have reviewed the documentation and plan of care and agree with the assessment and plan of care as written. Dr. Juan Pablo May Providers/Reason For Consult 2 Consulting Physician/Specialty*: Wound care Reason for Consult*: Draining ulcer to right lower leg Requesting Physician: Dr. Eloy De Dios Attending Physician: Eloy De Dios Primary Care Provider: Anand Geiger MD History of Present Illness History of Present Illness Monty Christopher is a pleasant 73 year old male with a past medical history that includes atrial fibrillation, hypertension, diabetes, COPD and chronic kidney disease. He presented to the emergency room today with complaints of increasing redness, swelling, and drainage from his right lower leg. He was admitted for observation with a diagnosis of cellulitis of the right lower leg. Dr. De Dios consulted for an open ulceration to his right lower extremity just above the level of the ankle for treatment recommendation. Upon entering his room, he is sitting on the edge of the bed just having finished his lunch. He reports the redness, swelling, and weeping started approximately 2 weeks ago and has been getting progressively worse. He reports he has had a similar problem once in the past and was given IV Lasix in the emergency room which resolved the swelling and his wounds subsequently healed shortly after. He states he has trouble breathing when lying flat, so he is unable to lay in his bed to elevate his legs. He reports he sleeps in a recliner at night and spends a large amount of time in his recliner during the day with his feet hanging in a dependent position. Notes Review of Systems 2 General: Reports: 10 or more systems reviewed and unremarkable except in HPI and below Const: Denies: fever(s) or chills Card: Reports: edema, swelling of feet/ankles, orthopnea and leg pain with exertion; Denies: chest pain or palpitations Resp: Denies: dyspnea or productive cough GI: Denies: abdominal pain, nausea or vomiting Musc: Reports: extremity pain (Bilateral lower extremities) and extremity swelling Skin/Breast: Reports: erythema (Right lower extremity), sores (Right lower extremity) and dry skin; Denies: skin tenderness Medications/Allergies Home Medications ?Medication ?Instructions ?Recorded ?Confirmed ?Last Taken ?Type aspirin 325 mg tablet 325 mg PO QAM 10/30/23 05/09 /25 05/09/25 History tamsulosin 0.4 mg capsule 0.4 mg PO DAILY 09/29/2301/2409/07/24 History clonidine HCl 0.1 mg tablet 0.1 mg PO BID #60 tabs 09/07/24 09/07/24 Rx carvedilol 12.5 mg tablet 12.5 mg PO BID #60 tabs 03/0209/07/24 09/07/24 Rx furosemide 40 mg tablet (Lasix) 40 mg PO QAM 06/21/24 09/07/24 09/07/24 History Allergies Allergy/AdvReac Type Severity Reaction Status Date / Time oxycodone Allergy ADR-Itching Verified 08/15/24 07:14 fentanyl AdvReac Intermediate made him Verified 08/15/24 07:14 paranoid PFSH Acute 2 PFSH: Medical History Atrial fibrillation Lumbar spinal stenosis Hyponatremia This has been chronic for several years. Made worse by diuretics. Negative work-up otherwise Gout Chronic kidney disease (CKD) Hypertension Diabetes mellitus type 2, controlled COPD (chronic obstructive pulmonary disease) GERD (gastroesophageal reflux disease) Social History Smoking and tobacco/nicotine status: unknown if used tobacco/nicotine Vitals/I&O/Wt Last Vital Signs Temp 97.6 F 09/07/24 08:05 Pulse 86 09/07/24 13:17 Resp 16 09/07/24 08:05 BP 166/90 09/07/24 13:17 Pulse Ox 100 09/07/24 13:17 O2 Del Method Room Air 09/07/24 13:17 Weight last 48 hrs Weight 118.388 kg Weight 113.398 kg Physical Exam 2 Const: COMMON NORMALS: no acute distress, patient oriented x3 and alert G ENERAL APPEARANCE: cooperative, comfortable and well kempt NUTRITIONAL APPEARANCE: overweight ORIENTATION/CONSCIOUSNESS: Yes awake, Yes oriented to person, Yes oriented to place and Yes oriented to time HENMT: HEAD & SCALP: normal to inspection Eye: GENERAL EYE: appearance normal, both eyes and all related structures Neck/C-Spine: GENERAL: Yes normal visual inspection and Yes trachea midline Chest: CHEST: Yes Symmetrical chest wall rise Resp: COMMON NORMALS: normal respiratory effort and No use of accessory muscles EFFORT & INSPECTION: Yes able to speak in complete sentences and Yes symmetric chest movement Cardio: COMMON NORMALS: regular rate RATE: regular rate PERIPHERAL PULSES: posterior tibial pulses present positive right dopplerable (Monophasic) and dorsalis pedis present positive right dopplerable (Monophasic) Extremity: RIGHT LOWER EXTREMITY: Yes lower leg Right lower leg: Yes inspection (Erythematous to level of ankle), Yes palpation (1+ edema, slight warmth to touch over erythema) and Yes neurovascular exam (Capillary refill 5 seconds to distal digits) Neuro: COMMON NORMALS: patient oriented x3 SENSORIUM/ORIENTATION: Yes alert, Yes oriented to person, Yes oriented to place and Yes oriented to time Psych: COMMON NORMALS: mental status grossly normal, Normal thought process present and speech normal APPEARANCE: Yes grossly normal and Yes well kempt ATTITUDE: Yes calm ACTIVITY/MOTOR BEHAVIOR: Yes appropriate eye contact S PEECH: Yes normal speech MOOD & AFFECT: Yes euthymic mood THOUGHT PROCESS: Normal thought process present INSIGHT: Good insight present (Psych) J UDGEMENT: Good judgement present (Psych) Skin: WOUNDS: Yes wounds noted (See wound assessment) Data 09/07/24 08:19 09/07/24 08:19 Micro: Microbiology 09/07/24 08:21 Blood Culture - Preliminary Blood SPECIMEN COLLECTED 09/07/24 08:19 Blood Culture - Preliminary Blood SPECIMEN COLLECTED A&P Assessment and plan (1) Venous stasis dermatitis: (2) Cellulitis of right lower extremity: Plan Superficial ulcerations to the right lower extremity with serous drainage present. I recommend the patient shower and cleanse the right lower leg with Hibiclens today. If patient refuses shower, his right lower extremity should be cleansed using Hibiclens and rinsed thoroughly after. After drying the leg, A&D ointment should be applied to address the desquamation over the right lower extremity. Silvercel should be applied to the open ulcerations and covered with an ABD pad secured with Kerlix. I discussed with Mr. Christopher the importance of leg elevation to decrease the edema in his lower extremity. He is receiving IV antibiotics guided by hospitalist service. The wounds appear to be of venous etiology given the irregular border, shallow depth, and the location of the wounds. Mr. Christopher's dorsalis pedis and posterior tibial arteries were monophasic upon Doppler evaluation. He reports leg pain upon exertion. I recommend an arterial ultrasound either while inpatient or shortly after discharge given his complex comorbidities and risk for PAD. I did discuss this with Dr. De Dios. I recommend Mr. Christopher follow-up outpatient with wound care for close monitoring of wound status given his comorbidities and the recurrent nature of wounds in the same area. Any further recommendations while inpatient should be guided by hospitalist service. If patient is still admitted on Tuesday, wound care will follow-up at that time. PDMP PDMP Reviewed: Not Reviewed Consult Attestations 2 Time Spent in Patient Care: 16 - 35 minutes Coding Level of Care Code Acute Code for Chg Fwd Diagnoses Venous stasis dermatitis I87.2 Cellulitis of right lower extremity L03.115 Wound Assessment Wound Assessment Wound Number 1 Lower Leg: Descriptor: Right and Anterior Primary Etiology:: Cellulitis Length: (cm): 1.5 cm Width: (cm): 1 cm Depth: (cm): 0.1 cm Epithelialization:: None Tunneling:: No Undermining:: No Limited to Skin Breakdown: Yes Exudate Amount:: Medium Drainage Type: Serous Foul Odor After Cleansing:: No Slough/Fibrin?: No Granulation Amount: None Necrotic Amount:: Small (1-33%) Necrotic Type:: Adherent Slough Wound Number 2 Lower Leg: Descriptor: Right and Lateral Primary Etiology:: Cellulitis Length: (cm): 7 cm Width: (cm): 7 cm Depth: (cm): 0.1 cm Epithelialization:: Small (1-33%) Tunneling:: No Undermining:: No Limited to Skin Breakdown: Yes Exudate Amount:: Medium Drainage Type: Serous Foul Odor After Cleansing:: No Slough/Fibrin?: Yes Granulation Amount: None Necrotic Amount:: Small (1-33%) Necrotic Type:: Adherent Slough Wound Orders All Wounds: Right anterior and right lateral lower leg Dressing change frequency: Daily and Other (and as needed if strikethrough drainage is noted) Wound Cleansing: Soap and Water Skin Barriers/Vera-Wound Care: Vitamin A&D Ointment Primary Wound Care Dressing: Silvercel Secondary Wound Care Dressing: ABD pad, Kerlix Bathing/Showering/Hygiene: May shower without wound dressing Edema Control: Other Edema Control Order/Instructions: (Leg elevation)
[2024-09-07] MEDS: enoxaparin 40 mg/0.4 mL Syringe SUBCUT (14:05)
[2024-09-07 15:24] LABS: MRSA PCR OZH (swab) NOT DETECTED (Negative)
[2024-09-07 15:42] VITALS: BP 160/76; PULSE 92; RESP 20; TEMP 36.3; O2SAT 95
[2024-09-07 16:59] LABS: Glucose Point of Care 102 mg/dL (70-110)
[2024-09-07 17:28] VITALS: BP 160/76
[2024-09-07] MEDS: carvedilol 12.5 mg Tablet PO (17:28)
[2024-09-07] MEDS: cloNIDine 0.1 mg Tablet PO (17:28)
[2024-09-07 19:45] VITALS: BP 166/79; PULSE 105; RESP 18; TEMP 36.6; O2SAT 98
[2024-09-07] MEDS: diphenhydrAMINE 25 mg Capsule PO (20:28)
[2024-09-07] MEDS: cefTRIAXone 1,000 mg SDV 1000 MG IVP ×2 (20:28→21:13)
[2024-09-07 20:53] LABS: Glucose Point of Care 146 mg/dL (70-110)
[2024-09-08] VITALS: BP 128/80; PULSE 83; RESP 17; TEMP 36.9; O2SAT 98
[2024-09-08 04:00] VITALS: BP 124/71; PULSE 86; RESP 17; TEMP 36.7; O2SAT 98
[2024-09-08 04:24] LABS: Anion Gap 14.8 (5-19); Blood Urea Nitrogen 14 mg/dL (8-23); Calcium 8.6 mg/dL (8.5-10.5); Carbon Dioxide 23 mmol/L (22-29); Chloride 101 mmol/L (98-107); Creatinine Clr Calc Pharmacy 68.5774; Glucose 124 mg/dL (65-115); Osmolality Calculated 282 mOsm/kg (285-295); Potassium 3.8 mmol/L (3.5-5.1); Sodium 135 mmol/L (136-145)
[2024-09-08 05:40] LABS: Basophils % 0.5 %; Eosinophils # 0.2 10^3/uL (0.0-0.8); Eosinophils % 2.7 %; Hematocrit 33.6 % (37-53); Lymphocytes # 1.9 10^3/uL (0.8-4.8); Lymphocytes % 23.5 %; Mean Corpuscular HGB Conc 31.8 g/dL (30-55); Mean Corpuscular Hemoglobin 25.5 pg (27-33); Mean Corpuscular Volume 80.2 fl (82-101); Mean Platelet Volume 9.9 fL (7.4-10.4); Monocytes % 11.8 %; Neutrophils # 5.05 10^3/uL (1.8-7.7); Neutrophils % 61.1 %; Nucleated Red Blood Cells % 0 %; Platelet Count 222 10^3/cmm (157-399); Red Blood Count 4.19 10^6/uL (3.85-5.65); Red Cell Distribution Width 17.7 % (12.1-15.1); White Blood Count 8.25 10^3/uL (3.29-11.43)
[2024-09-08] MEDS: FUROsemide 40 mg Tablet PO (05:43)
[2024-09-08] MEDS: aspirin 325 mg Tablet PO (05:43)
[2024-09-08 06:59] LABS: Glucose Point of Care 120 mg/dL (70-110)
[2024-09-08 07:57] VITALS: BP 144/82; PULSE 77; RESP 17; TEMP 36.7; O2SAT 99
[2024-09-08] MEDS: cloNIDine 0.1 mg Tablet PO ×2 (09:44→17:35)
[2024-09-08] MEDS: tamsulosin 0.4 mg Capsule PO (09:44)
[2024-09-08] MEDS: carvedilol 12.5 mg Tablet PO ×2 (09:44→17:35)
[2024-09-08 10:58] LABS: Glucose Point of Care 118 mg/dL (70-110)
[2024-09-08 11:06] VITALS: BP 133/79; PULSE 91; RESP 16; TEMP 36.5; O2SAT 96
--- NOTE | 2024-09-08 13:27 | P.PN_ITS ---
Subjective 2 Subjective: seen today took down dressing left ankle, redness still present Vitals/I&O/Wt Last Vital Signs Temp 97.7 F 09/08/24 11:06 Pulse 91 09/08/24 11:06 Resp 16 09/08/24 11:06 BP 133/79 09/08/24 11:06 Pulse Ox 96 09/08/24 11:06 O2 Del Method Room Air 09/08/24 11:06 09/07/24 09/08/24 09/08/24 22:59 06:59 14:59 Intake Total 360 / 660 240 / 240 Balance 360 / 660 240 / 240 Weight last 48 hrs Weight 117.843 kg Weight 118.388 kg Weight 113.398 kg Physical Exam 2 Const: COMMON NORMALS: patient oriented x3 and alert GENERAL APPEARANCE: c ooperative ORIENTATION/CONSCIOUSNESS: Yes awake HENMT: COMMON NORMALS: oropharynx normal Neck/C-Spine: COMMON NORMALS: no JVD Resp: COMMON NORMALS: normal respiratory effort and clear to auscultation bilaterally AUSCULTATION: clear to auscultation bilaterally Cardio: COMMON NORMALS: no JVD, regular rhythm, S1 normal heart sound present, S2 normal heart sound present and No murmurs present (Cardio) RHYTHM: regular rhythm HEART SOUNDS: S1 normal heart sound present and S2 normal heart sound present GI: COMMON NORMALS: Normal to inspection, nondistended, normoactive bowel sounds present, Soft to palpation and non-tender PALPATION: Yes Soft to palpation Extremity: COMMON NORMALS: no joint enlargement GENERAL: Yes edema (2+) Neuro: COMMON NORMALS: patient oriented x3 and moves all extremities S ENSORIUM/ORIENTATION: Yes alert Skin: COMMON NORMALS: no rashes or lesions noted NARRATIVE SKIN EXAM: Erythematous band encircling the distal right lower extremity above right ankle almost circumferential except for the posterior aspect, with shallow ulceration of about 2-1/2 cm diameter over the lateral aspect. Warm to touch. Without purulence. Development no weeping. Mild edema. continued erythema present GENERAL SKIN EXAM: no rashes or lesions noted Data 09/08/24 05:09 09/08/24 02:27 Micro: Microbiology 09/07/24 08:21 Blood Culture - Preliminary Blood NEGATIVE TO DATE 09/07/24 08:19 Blood Culture - Preliminary Blood NEGATIVE TO DATE A&P Assessment and plan (1) Cellulitis of right lower extremity: Moderate and improving cellulitis and right lower extremity shallow ulcer, likely venous insufficiency ulcer, possible source of the cellulitis. With recent redness, tenderness, weeping, without purulence. Received cefepime dose, will continue with ceftriaxone empirically. Monitor for risk of cytopenia, Bell-Renzo syndrome, C. difficile. Obtain MRSA PCR nasal swab. Discussed with sales recruitment specialist, appreciate consultation. Reviewed vitals, CBC, CMP, ankle x-ray, tibial x-ray, ER provider note, discussed with ER provider. Discussed with him to elevate right lower extremity. Will assess venous duplex ultrasound to exclude DVT. Plan Atrial fibrillation: Continue aspirin, carvedilol CKD: Reviewed chemistry, reassess DM2: SSI, monitor POC glucose. Consistent carb diet. COPD: Without exacerbation. DuoNeb as needed. BPH: Flomax Other medical problems 09/08/2024 continue iv ceftriaxone appreciate wound care recommendations add iv vanc for MRSA coverage, switch to doxycycline at dc venous doppler neg for dvt PDMP PDMP Reviewed: Not Reviewed Attestations 2 Medical Necessity Statement*: Place in observation for assessment management of moderate on improving cellulitis of right lower extremity with underlying likely venous insufficiency in a gentleman of advanced age with diabetes, CKD, and other multiple comorbidities. Diagnoses Cellulitis of right lower extremity L03.115
[2024-09-08] MEDS: enoxaparin 40 mg/0.4 mL Syringe SUBCUT (13:36)
--- NOTE | 2024-09-08 14:59 | PHA.VACGOAL ---
Vancomycin Goal - Goal Vancomycin Indication:: SSTI - Therapy Current therapy:: Cefepime Day of therpy:: Day []of [] . Actual body weight (kg): 259 lb 12.8 oz - Data Labs: WBC 8.25 10^3/uL (3.29-11.43) 09/08/24 05:09 Corrected WBC Cancelled 09/08/24 02:27 RBC 4.19 10^6/uL (3.85-5.65) 09/08/24 05:09 Hgb 10.70 g/dL (11.27-16.99) L 09/08/24 05:09 Hct 33.6 % (37-53) L 09/08/24 05:09 MCV 80.2 fl (82-101) L 09/08/24 05:09 MCH 25.5 pg (27-33) L 09/08/24 05:09 MCHC 31.8 g/dL (30-55) 09/08/24 05:09 RDW 17.7 % (12.1-15.1) H 09/08/24 05:09 Sodium 135 mmol/L (136-145) L 09/08/24 02:27 Potassium 3.8 mmol/L (3.5-5.1) 09/08/24 02:27 Chloride 101 mmol/L (98-107) 09/08/24 02:27 Carbon Dioxide 23 mmol/L (22-29) 09/08/24 02:27 Anion Gap 14.8 (5-19) 09/08/24 02:27 BUN 14 mg/dL (8-23) 09/08/24 02:27 Creatinine 1.2 mg/dL (0.7-1.2) 09/08/24 02:27 GFR Calculation Not Reportable 09/08/24 02:27 Last dialysis session:: N/A Treatment plan:: new consult
[2024-09-08 15:56] VITALS: BP 148/66; PULSE 85; RESP 16; TEMP 36.8; O2SAT 95
[2024-09-08] MEDS: vancomycin 1,250 MG/250 ML PIGGYBACK 166.67 MG IV (16:07)
[2024-09-08 16:42] LABS: Glucose Point of Care 132 mg/dL (70-110)
[2024-09-08 20:00] VITALS: BP 153/77; PULSE 84; RESP 18; TEMP 36.4; O2SAT 97
[2024-09-08 21:03] LABS: Glucose Point of Care 131 mg/dL (70-110)
[2024-09-08] MEDS: trazodone 50 mg Tablet 25 MG PO (21:41)
[2024-09-09] VITALS (8 sets, daily range): BP systolic 136–168; BP diastolic 66–81; PULSE 72–88; RESP 17–18; TEMP 36.4–36.7; O2SAT 95–98
[2024-09-09] MEDS: vancomycin 1,250 MG/250 ML PIGGYBACK 166 MG IV ×2 (04:11→16:38)
[2024-09-09 05:26] LABS: Basophils % 0.5 %; Eosinophils # 0.3 10^3/uL (0.0-0.8); Eosinophils % 3.9 %; Lymphocytes # 1.9 10^3/uL (0.8-4.8); Lymphocytes % 24.5 %; Mean Corpuscular Hemoglobin 25.4 pg (27-33); Mean Corpuscular Volume 84.5 fl (82-101); Mean Platelet Volume 10.3 fL (7.4-10.4); Monocytes # 0.9 10^3/uL (0.2-0.9); Monocytes % 11.4 %; Neutrophils # 4.53 10^3/uL (1.8-7.7); Neutrophils % 59.3 %; Nucleated Red Blood Cells % 0 %; Platelet Count 212 10^3/cmm (157-399); Red Blood Count 4.14 10^6/uL (3.85-5.65); Red Cell Distribution Width 17.9 % (12.1-15.1); White Blood Count 7.64 10^3/uL (3.29-11.43)
[2024-09-09 05:48] LABS: Blood Urea Nitrogen 14 mg/dL (8-23); Calcium 8.7 mg/dL (8.5-10.5); Carbon Dioxide 20 mmol/L (22-29); Chloride 101 mmol/L (98-107); Creatinine Clr Calc Pharmacy 74.8859; Glucose 109 mg/dL (65-115); Magnesium 1.8 mg/dL (1.7-2.3); Osmolality Calculated 281 mOsm/kg (285-295); Sodium 135 mmol/L (136-145)
[2024-09-09] MEDS: FUROsemide 40 mg Tablet PO (06:10)
[2024-09-09] MEDS: aspirin 325 mg Tablet PO (06:10)
[2024-09-09 06:25] LABS: Glucose Point of Care 121 mg/dL (70-110)
--- NOTE | 2024-09-09 07:52 | USR_ITS ---
PROCEDURE INFORMATION: Exam: US Duplex Bilateral Lower Extremity Arteries Exam date and time: 09/09/2024 8:57 AM Age: 73 years old Clinical indication: Screening exam; With charlie TECHNIQUE: Imaging protocol: Real-time ultrasound scan of the arteries of the bilateral lower extremities with 2-D landers scale, color Doppler flow and spectral waveform analysis. Images documented and saved. COMPARISON: CR XR ankle RT min 3V* [id number] 09/07/2024 9:48 AM FINDINGS: Right common femoral artery: No occlusion or significant stenosis. Monophasic waveform. Right superficial femoral artery: No occlusion or significant stenosis. Monophasic waveform. Right popliteal artery: No occlusion or significant stenosis. Monophasic waveform. Right calf/foot arteries: No occlusion or significant stenosis in the visualized arteries. Monophasic waveforms. Dorsalis pedis artery is patent. Severely low right ankle-brachial index at 0.4. Left common femoral artery: No occlusion or significant stenosis. Monophasic waveform. Left superficial femoral artery: No occlusion or significant stenosis. Monophasic waveform. Left popliteal artery: No occlusion or significant stenosis. Monophasic waveform. Left calf/foot arteries: No occlusion or significant stenosis in the visualized arteries. Monophasic waveforms. Dorsalis pedis artery is patent. Moderately low left ankle-brachial index at 0.7. US/[place] [id number] IMPRESSION: 1. Monophasic waveforms throughout all main arteries of both legs indicates high-grade stenoses if not occlusion involving iliac arteries bilaterally and/or aorta. 2. No hemodynamically significant stenoses or occlusions identified in the main arteries of either leg.
[2024-09-09] MEDS: tamsulosin 0.4 mg Capsule PO (09:56)
[2024-09-09] MEDS: carvedilol 12.5 mg Tablet PO ×2 (09:56→17:34)
[2024-09-09] MEDS: FUROsemide 10 mg/mL SDV 4mL 40 MG IVP (09:56)
[2024-09-09] MEDS: cloNIDine 0.1 mg Tablet PO ×2 (09:56→17:34)
[2024-09-09 11:15] LABS: Glucose Point of Care 118 mg/dL (70-110)
--- NOTE | 2024-09-09 12:39 | P.PN_ITS ---
Subjective 2 Subjective: seen today ankle redness slightly improving Vitals/I&O/Wt Last Vital Signs Temp 97.7 F 09/09/24 11:17 Pulse 88 09/09/24 11:17 Resp 18 09/09/24 11:17 BP 145/70 09/09/24 11:17 Pulse Ox 95 09/09/24 11:17 O2 Del Method Room Air 09/09/24 11:17 09/08/24 09/09/24 09/09/24 22:59 06:59 14:59 Intake Total 490 / 970 250 / 1220 480 / 480 Balance 490 / 970 250 / 1220 480 / 480 Weight last 48 hrs Weight 118.614 kg Weight 117.843 kg Weight 118.388 kg Physical Exam 2 Const: COMMON NORMALS: patient oriented x3 and alert GENERAL APPEARANCE: c ooperative ORIENTATION/CONSCIOUSNESS: Yes awake HENMT: COMMON NORMALS: oropharynx normal Neck/C-Spine: COMMON NORMALS: no JVD Resp: COMMON NORMALS: normal respiratory effort and clear to auscultation bilaterally AUSCULTATION: clear to auscultation bilaterally Cardio: COMMON NORMALS: no JVD, regular rhythm, S1 normal heart sound present, S2 normal heart sound present and No murmurs present (Cardio) RHYTHM: regular rhythm HEART SOUNDS: S1 normal heart sound present and S2 normal heart sound present GI: COMMON NORMALS: Normal to inspection, nondistended, normoactive bowel sounds present, Soft to palpation and non-tender PALPATION: Yes Soft to palpation Extremity: COMMON NORMALS: no joint enlargement GENERAL: Yes edema (2+) Neuro: COMMON NORMALS: patient oriented x3 and moves all extremities S ENSORIUM/ORIENTATION: Yes alert Skin: COMMON NORMALS: no rashes or lesions noted NARRATIVE SKIN EXAM: Erythematous band encircling the distal right lower extremity above right ankle almost circumferential except for the posterior aspect, with shallow ulceration of about 2-1/2 cm diameter over the lateral aspect. Warm to touch. Without purulence. Development no weeping. Mild edema. continued erythema present 09/08, took down dressing erythema improving, drainage still present 09/09, took down dressing and evaluated GENERAL SKIN EXAM: no rashes or lesions noted Data 09/09/24 04:30 09/09/24 04:30 Micro: Microbiology 09/07/24 08:21 Blood Culture - Preliminary Blood NEGATIVE TO DATE 09/07/24 08:19 Blood Culture - Preliminary Blood NEGATIVE TO DATE A&P Assessment and plan (1) Cellulitis of right lower extremity: Moderate and improving cellulitis and right lower extremity shallow ulcer, likely venous insufficiency ulcer, possible source of the cellulitis. With recent redness, tenderness, weeping, without purulence. Received cefepime dose, will continue with ceftriaxone empirically. Monitor for risk of cytopenia, Bell-Renzo syndrome, C. difficile. Obtain MRSA PCR nasal swab. Discussed with front end alignment specialist, appreciate consultation. Reviewed vitals, CBC, CMP, ankle x-ray, tibial x-ray, ER provider note, discussed with ER provider. Discussed with him to elevate right lower extremity. Will assess venous duplex ultrasound to exclude DVT. Plan Atrial fibrillation: Continue aspirin, carvedilol CKD: Reviewed chemistry, reassess DM2: SSI, monitor POC glucose. Consistent carb diet. COPD: Without exacerbation. DuoNeb as needed. BPH: Flomax Other medical problems 09/08/2024 continue iv ceftriaxone appreciate wound care recommendations add iv vanc for MRSA coverage, venous doppler neg for dvt 09/09/2024 continue IV vancomycin and ceftriaxone check arterial US erythema improving plan to dc in AM if continued improvement PDMP PDMP Reviewed: Not Reviewed Attestations 2 Medical Necessity Statement*: continue IV abx for cellulitis Diagnoses Cellulitis of right lower extremity L03.115
[2024-09-09] MEDS: enoxaparin 40 mg/0.4 mL Syringe SUBCUT (14:35)
[2024-09-09 16:40] LABS: Glucose Point of Care 111 mg/dL (70-110)
[2024-09-09 20:04] LABS: Glucose Point of Care 166 mg/dL (70-110)
[2024-09-09] MEDS: cefTRIAXone 1,000 mg SDV 1000 MG IVP (20:52)
--- NOTE | 2024-09-09 20:57 | PC.NURSE ---
Patient refused bedtime insulin dose of 2 units. Patient stated I am not taking insulin. I have never been a diabetic. I am 73 years old and I have never taken insulin in my life. I see Dr. Geiger and not once has he told me I have diabetes. This nurse informed the patient of medical diagnosis in chart and patient stated I dont care what that chart on there says. He has never told me I had diabetes. This nurse informed patient that insulin has been ordered to be given tonight due to his blood sugar being 166 and patient still refused to take ordered dose. Plan of care ongoing.
[2024-09-10] VITALS: BP 153/80; PULSE 81; RESP 16; TEMP 36.6; O2SAT 98
[2024-09-10 03:42] LABS: Basophils # 0.1 10^3/uL (0.0-0.1); Basophils % 0.5 %; Eosinophils # 0.3 10^3/uL (0.0-0.8); Eosinophils % 3.2 %; Hematocrit 33.7 % (37-53); Lymphocytes % 19.1 %; Mean Corpuscular HGB Conc 31.8 g/dL (30-55); Mean Corpuscular Volume 81.8 fl (82-101); Mean Platelet Volume 10.4 fL (7.4-10.4); Monocytes # 1.1 10^3/uL (0.2-0.9); Neutrophils # 6.72 10^3/uL (1.8-7.7); Neutrophils % 65.7 %; Nucleated Red Blood Cells % 0 %; Platelet Count 254 10^3/cmm (157-399); Red Blood Count 4.12 10^6/uL (3.85-5.65); Red Cell Distribution Width 17.7 % (12.1-15.1); White Blood Count 10.22 10^3/uL (3.29-11.43)
[2024-09-10 04:00] VITALS: BP 169/84; PULSE 91; RESP 18; TEMP 36.8; O2SAT 97
[2024-09-10 04:07] LABS: Vancomycin Trough 16.8 ug/mL (10-15)
[2024-09-10 04:11] LABS: Anion Gap 17.3 (5-19); Blood Urea Nitrogen 17 mg/dL (8-23); Calcium 8.9 mg/dL (8.5-10.5); Carbon Dioxide 21 mmol/L (22-29); Chloride 101 mmol/L (98-107); Creatinine Clr Calc Pharmacy 82.3745; Glucose 117 mg/dL (65-115); Osmolality Calculated 283 mOsm/kg (285-295); Potassium 4.3 mmol/L (3.5-5.1); Sodium 135 mmol/L (136-145)
[2024-09-10] MEDS: vancomycin 1,250 MG/250 ML PIGGYBACK 166 MG IV (04:22)
[2024-09-10] MEDS: aspirin 325 mg Tablet PO (05:56)
[2024-09-10 06:30] LABS: Glucose Point of Care 145 mg/dL (70-110)
--- NOTE | 2024-09-10 07:38 | P.DS_ITS ---
Discharge Providers Date of Admission: 09/08/24 12:44 Date of Discharge: September 10, 2024 Attending Provider at Admission: Eloy De Dios Attending Provider at Discharge: Kathy Hodge MD Primary Care Provider: Anand Geiger MD Diagnoses at Discharge Discharge Diagnosis (1) Cellulitis of right lower extremity: Status: Acute Reason for Visit Reason for Visit: fluid coming out of ankle Hospital Course Hospital Course Patient presented to the hospital with cellulitis of right lower extremity. He was kept on IV ceftriaxone with minimal improvement. IV vancomycin was added for MRSA coverage. Ultrasound arterial and venous Dopplers were performed. Erythema has significantly improved and wound appears better. He was also seen by wound care during hospitalization. He is to go to wound care clinic today right after discharge for follow-up. Patient will be discharged on linezolid and cefdinir for another 5 days. Stable for discharge at this time. Patient asymptomatic. Physical Exam Const: COMMON NORMALS: patient oriented x3 and alert GENERAL APPEARANCE: cooperative ORIENTATION/CONSCIOUSNESS: Yes awake HENMT: COMMON NORMALS: oropharynx normal Neck/C-Spine: COMMON NORMALS: no JVD Resp: COMMON NORMALS: normal respiratory effort and clear to auscultation bilaterally AUSCULTATION: clear to auscultation bilaterally Cardio: COMMON NORMALS: no JVD, regular rhythm, S1 normal heart sound present, S2 normal heart sound present and No murmurs present (Cardio) RHYTHM: regular rhythm HEART SOUNDS: S1 normal heart sound present and S2 normal heart sound present GI: COMMON NORMALS: Normal to inspection, nondistended, normoactive bowel sounds present, Soft to palpation and non-tender PALPATION: Yes Soft to palpation Extremity: COMMON NORMALS: no joint enlargement GENERAL: Yes edema (2+) Neuro: COMMON NORMALS: patient oriented x3 and moves all extremities SENSORIUM/ORIENTATION: Yes alert Skin: COMMON NORMALS: no rashes or lesions noted NARRATIVE SKIN EXAM: Erythematous band encircling the distal right lower extremity above right ankle almost circumferential except for the posterior aspect, with shallow ulceration of about 2-1/2 cm diameter over the lateral aspect. Warm to touch. Without purulence. Development no weeping. Mild edema. continued erythema present 09/08, took down dressing erythema improving, drainage still present 09/09, took down dressing and evaluated 09/10: DAY OF DISCHARGE significant improvement in erythema, drainage improved as well. GENERAL SKIN EXAM: no rashes or lesions noted Discharge Data Studies Completed and Pending Completed Studies During Hospitalization Category Date Time Status XR ankle RT min 3V* [id number] Stat Exams 09/07/24 09:47 Completed XR tibia fibula RT 2V [id number] Stat Exams 09/07/24 09:47 [place] [id number] Routine Ultrasound 09/09/24 07:52 [place] [id number] Routine Ultrasound 09/07/24 13:48 Completed Pending at discharge Category Date Time Status Blood Culture Stat Lab 09/07/24 08:21 Results Radiology Impressions Ankle X-Ray 09/07/24 09:47 IMPRESSION: Mild osteoarthritis. No acute bone or joint abnormality identified. Tibia/Fibula X-Ray 09/07/24 09:47 IMPRESSION: No acute bone abnormality of the tibia or fibula. Duplex Scan Lower Extremity Artery 09/09/24 07:52 IMPRESSION: 1. Monophasic waveforms throughout all main arteries of both legs indicates high-grade stenoses if not occlusion involving iliac arteries bilaterally and/or aorta. 2. No hemodynamically significant stenoses or occlusions identified in the main arteries of either leg. Laboratory Results WBC 10.22 10^3/uL (3.29-11.43) 09/10/24 02:42 Corrected WBC Cancelled 09/08/24 02:27 RBC 4.12 10^6/uL (3.85-5.65) 09/10/24 02:42 Hgb 10.70 g/dL (11.27-16.99) L 09/10/24 02:42 Hct 33.7 % (37-53) L 09/10/24 02:42 MCV 81.8 fl (82-101) L 09/10/24 02:42 MCH 26.0 pg (27-33) L 09/10/24 02:42 MCHC 31.8 g/dL (30-55) D 09/10/24 02:42 RDW 17.7 % (12.1-15.1) H 09/10/24 02:42 Plt Count 254 10^3/cmm (157-399) 09/10/24 02:42 MPV 10.4 fL (7.4-10.4) 09/10/24 02:42 Gran % Cancelled 09/08/24 02:27 Neut % (Auto) 65.7 % 09/10/24 02:42 Lymph % (Auto) 19.1 % 09/10/24 02:42 Clare % (Auto) 11.0 % 09/10/24 02:42 Eos % (Auto) 3.2 % 09/10/24 02:42 Baso % (Auto) 0.5 % 09/10/24 02:42 Neut # (Auto) 6.72 10^3/uL (1.8-7.7) 09/10/24 02:42 Lymph # (Auto) 2.0 10^3/uL (0.8-4.8) 09/10/24 02:42 Clare # (Auto) 1.1 10^3/uL (0.2-0.9) H 09/10/24 02:42 Eos # (Auto) 0.3 10^3/uL (0.0-0.8) 09/10/24 02:42 Baso # (Auto) 0.1 10^3/uL (0.0-0.1) 09/10/24 02:42 Absolute Gran (auto) Cancelled 09/08/24 02:27 Nucleated RBC % (auto) 0 % 09/10/24 02:42 Nucleated RBCs # 0.0 /100WBC 09/10/24 02:42 ESR 58 mm/hr (0-10) H 09/07/24 08:19 Sodium 135 mmol/L (136-145) L 09/10/24 02:42 Potassium 4.3 mmol/L (3.5-5.1) 09/10/24 02:42 Chloride 101 mmol/L (98-107) 09/10/24 02:42 Carbon Dioxide 21 mmol/L (22-29) L 09/10/24 02:42 Anion Gap 17.3 (5-19) 09/10/24 02:42 BUN 17 mg/dL (8-23) 09/10/24 02:42 Creatinine 1.0 mg/dL (0.7-1.2) 09/10/24 02:42 GFR Calculation Not Reportable 09/10/24 02:42 Glucose 117 mg/dL (65-115) H 09/10/24 02:42 POC Glucose 145 mg/dL (70-110) H 09/10/24 06:15 Calculated Osmolality 283 mOsm/kg (285-295) L 09/10/24 02:42 Lactic Acid 2.2 mmol/L (0.5-2.2) 09/07/24 08:19 Lactic Acid (Sepsis) 1.0 mmol/L (0.5-2.2) 09/07/24 11:08 Calcium 8.9 mg/dL (8.5-10.5) 09/10/24 02:42 Magnesium 1.8 mg/dL (1.7-2.3) 09/09/24 04:30 Total Bilirubin 1.0 mg/dL (0.15-1.2) 09/07/24 08:19 AST 16 U/L (0-40) 09/07/24 08:19 ALT 10 U/L (0-41) 09/07/24 08:19 Alkaline Phosphatase 111 U/L (40-130) 09/07/24 08:19 C-Reactive Protein 53.5 mg/L (0.0-4.9) H 09/07/24 08:19 NT-Pro-B Natriuret Pep 1268 pg/mL (0-450) H 09/07/24 08:19 Total Protein 7.3 g/dL (6.6-8.7) 09/07/24 08:19 Albumin 3.3 g/dL (3.5-5.2) L 09/07/24 08:19 Globulin 4.0 g/dL (1.3-4.6) 09/07/24 08:19 Nasal MRSA (PCR) Not detected (Negative) 09/07/24 14:10 Vancomycin Trough 16.8 ug/mL (10-15) H 09/10/24 02:42 Vitals Last Vital Signs Temp 98.3 F 09/10/24 04:00 Pulse 91 09/10/24 04:00 Resp 18 09/10/24 04:00 BP 169/84 09/10/24 04:00 Pulse Ox 97 09/10/24 04:00 O2 Del Method Room Air 09/10/24 04:00 Discharge Plan Discharge Patient Disposition: Home Condition: Stable Prescriptions: New linezolid 600 mg tablet 600 mg PO BID 5 Days Qty: 10 0RF cefdinir 300 mg capsule 300 mg PO BID 5 Days Qty: 10 0RF Continued tamsulosin 0.4 mg capsule 0.4 mg PO DAILY aspirin 325 mg tablet 325 mg PO QAM clonidine HCl 0.1 mg tablet 0.1 mg PO BID Qty: 60 11RF furosemide [Lasix] 40 mg tablet 40 mg PO QAM carvedilol 12.5 mg tablet 12.5 mg PO BID Qty: 60 11RF Discharge Orders: Discharge Order (Routine); Ordered 09/10/24 Ordered By: Kathy Hodge Referrals: Tc Greene FNP [Nurse Practitioner, Wound Care] - 09/11/24 1:00 pm Anand Geiger MD [Primary Care Provider, [facility]] - 09/17/24 1:10 pm Discharge Diet: Cardiac Discharge Activity: Resume usual activity Patient Instructions: Cefdinir (By mouth), Linezolid (By mouth), Cellulitis (ED), Opioid Safety Activity Restrictions/Additional Instructions: Please follow-up with wound care today as an outpatient. Complete your antibiotics. Discharge Attestations Time Spent in Discharge Care*: less than 30 min Quality Metrics Clinical Quality Measures [ No reported AMI, CVA or VTE this stay] Coding Level of Care Code 56266 Total time (in minutes) for Discharge: 25 Diagnoses Cellulitis of right lower extremity L03.115
[2024-09-10 08:44] VITALS: BP 170/64; PULSE 95; RESP 19; TEMP 36.8; O2SAT 94
--- NOTE | 2024-09-10 09:06 | PC.CHAP ---
Pastoral Care Encounter/Spiritual Assessment Type of Contact [] Declined field service supervisor visit [] Patient/Family/Request visit [] Outpatient visit [] Follow-up visit [] Physician referral [] Code/Alert [x] Routine visit [] Staff referral [] Actively dying [] Patient sleeping [] Family support [] [] Out of room [] Palliative care [] [] Receiving care in room [] Pre-surgical visit [] Trauma [] Long length of stay [] ICU visit [] Other: Relational/Emotional Strength [] Patient feels connected with others/family/visitors/staff [] Distress [] Loneliness/isolation [] Abandonment Spirituality of Patient [x] Person of Maria Luz [] Attends Buddhism of their Maria Luz [x] Believes in Prayer [] Reads Bible or Buddhism materials [] There are Spiritual issues to be addressed Photo Stylist Interventions [x] Prayer [x] Active listening [] Non-anxious presence [] Spiritual/emotional support [] Crisis/trauma care [] Spiritual counseling [] Bereavement support [] Provided bereavement packet [x] Provided Bible/devotional materials [] Provided toy/stuffed animal, coloring book to patient or family member [] Provided Communion [] Anointing/[place] [] Salvation [x] Completed spiritual assessment [] Other: Impact on Illness or Injury [] Angry [] Fearful [] Anxious [] Often cries [] Exhaustion [] Unable to work [] Unable to attend catholic [] Unable to walk/stand [] Unable to read [] Unable to drive [] Unable to eat/drink [] Unable to sleep [] Unable to be with family [] Patient intubated [] Other: Summary Time spent with patient 10 min
[2024-09-10 09:11] VITALS: BP 170/64
[2024-09-10] MEDS: tamsulosin 0.4 mg Capsule PO (09:11)
[2024-09-10] MEDS: cloNIDine 0.1 mg Tablet PO (09:11)
[2024-09-10] MEDS: carvedilol 12.5 mg Tablet PO (09:11)
[2024-09-10 12:25] VITALS: BP 170/64; PULSE 95; RESP 19; TEMP 36.8; O2SAT 94
== END 2024-09-10 11:15 | disposition home or self-care (01) | DRG 603 ==
LOC: ER 09:51 → MEDSURG 12:13
PROVIDERS: Admitting Provider Internal Medicine; Emergency Provider Emergency Medicine; PCP Family Medicine; Visit Provider Internal Medicine
DX: L03.115 Cellulitis of right lower limb (principal); J44.9 Chronic obstructive pulmonary disease, unspecified; I48.91 Unspecified atrial fibrillation; M48.061 Spinal stenosis, lumbar region without neurogenic claudication; M10.9 Gout, unspecified; E11.22 Type 2 diabetes mellitus with diabetic chronic kidney disease; I12.9 Hypertensive chronic kidney disease with stage 1 through stage 4 chronic kidney disease, or unspecified chronic kidney disease; N18.9 Chronic kidney disease, unspecified; K21.9 Gastro-esophageal reflux disease without esophagitis; N40.0 Benign prostatic hyperplasia without lower urinary tract symptoms; I87.8 Other specified disorders of veins; Z79.82 Long term (current) use of aspirin
CPT/HCPCS: 36415; 36416; 73590; 73610; 80048; 80053; 80202; 82962; 83605; 83735; 83880; 85025; 85651; 86140; 87040; 93925; 93971; 96365; 96372; 96375; 99285; G0378; J0692; J0696; J1650; J1940; J2020; J3370; J9999

== ENCOUNTER → 2024-09-11 12:59 | Outpatient (BNVA) | payer MEDICARE, BC, SELFPAY | PROVIDERS: PCP Family Medicine; Visit Provider Thoracic Surgery (Cardiothoracic Vascular Surgery) | DX: I87.2 Venous insufficiency (chronic) (peripheral) (principal); L97.811 Non-pressure chronic ulcer of other part of right lower leg limited to breakdown of skin | CPT/HCPCS: 97597; 99203; J9999 ==

== ENCOUNTER 2024-09-19 14:42 | Outpatient (CLI) | payer MEDICARE, BC, SELFPAY ==
--- NOTE | 2024-09-19 15:00 | CTR_ITS ---
PROCEDURE INFORMATION: Exam: CTA Abdominal Aorta and Bilateral Lower Extremities (Run-off) With Contrast Exam date and time: 09/19/2024 3:21 PM Age: 73 years old Clinical indication: Injury or trauma; Other: Sore on lateral RT ankle; Wound, open; Foreign body involvement not specified; Injury date: 2 weeks ago; Follow up US, RT lateral ankle sore; Additional info: I87.2 - venous insufficiency (chronic) (peripheral) TECHNIQUE: Imaging protocol: Computed tomographic angiography of the of the abdominal aorta, pelvis and bilateral lower extremities with contrast. 3D rendering (Not supervised by radiologist): MIP and/or 3D reconstructed images were created by the technologist. Radiation optimization: All CT scans at this facility use at least one of these dose optimization techniques: automated exposure control; mA and/or kV adjustment per patient size (includes targeted exams where dose is matched to clinical indication); or iterative reconstruction. Contrast material: OMNIPAQUE 350; Contrast volume: 125 ml; Contrast route: INTRAVENOUS (IV); COMPARISON: CT kidney stone [id number] 08/28/2023 7:02 AM RADIATION DOSE METRICS: Total DLP (mGy-cm): 1954.35 FINDINGS: Aorta: Abdominal aorta is nonaneurysmal with extensive diffuse atherosclerosis. Celiac trunk and mesenteric arteries: No occlusion or significant stenosis. Mild atherosclerosis at the origin. Renal arteries: Bilateral renal arteries are patent with moderate to severe stenosis at the origin due to atherosclerosis. Right iliac arteries: Patent with extensive atherosclerosis and multifocal moderate to severe stenosis. Right femoral/popliteal arteries: Right common femoral and profunda femoris are patent with moderate scattered atherosclerosis. Scattered areas of atherosclerosis with multifocal areas of moderate and severe stenosis within SFA. Popliteal artery is patent. Right infrapopliteal arteries: Mild scattered atherosclerosis with patent three-vessel runoff. There is faint contrast opacification of right dorsalis pedis artery which appears patent. Left iliac arteries: Patent with severe atherosclerosis and multifocal areas of moderate to severe stenosis. Left femoral/popliteal arteries: Left common femoral and profunda arteries demonstrate scattered atherosclerosis but are patent. Left SFA demonstrates multifocal severe stenosis. Scattered atherosclerosis with multifocal varying degrees of stenosis within popliteal artery. Left infrapopliteal arteries: No definite occlusion. Few areas of scattered atherosclerosis with patent three-vessel runoff. Dorsalis pedis artery is patent. Liver: Subcentimeter hypodensities within right hepatic lobe, too small to characterize but likely represent simple cysts. In the absence of risk factors no further follow-up is required. Gallbladder and biliary ducts: Distended gallbladder without distinct gallstones visualized. Pancreas: Unremarkable. No mass. No ductal dilation. Spleen: Normal. No splenomegaly. Adrenal glands: Normal. No mass. Kidneys and ureters: Subcentimeter bilateral renal hypodensities. These are not completely characterized but are likely benign cysts. In the absence of risk factors, no further workup is recommended. Stomach and bowel: Large colonic stool burden. Appendix: No evidence of appendicitis. Urinary bladder: Distended bladder with mild mural wall thickening. Reproductive: Unremarkable as visualized. Intraperitoneal space: Unremarkable. No free air. No significant fluid collection. Lymph nodes: No lymphadenopathy. Bones/joints: No acute osseous abnormality. Severe joint space narrowing with extensive subchondral sclerosis within left hip joint, which puts this patient at high risk for femoral fracture. Trace suprapatellar right knee joint effusion. Irregular skin thickening and edema within right lower extremity soft tissues adjacent to the ankle joint and right foot. Soft tissues: Small fat containing bilateral inguinal hernias. There is diffuse skin thickening and fat stranding within [id number] soft tissues of left lower extremity, most concentrated adjacent to distal tibia and fibula. No contained fluid collection to suggest an abscess formation. CT/CT angio abd aorta runof [id number] IMPRESSION: 1. Patent nonaneurysmal abdominal aorta and its main branches with severe atherosclerosis. 2. Severe atherosclerosis with multifocal moderate to severe areas of stenosis within bilateral iliac arteries. 3. Moderate to severe osseous sclerosis within bilateral superficial femoral arteries with three-vessel runoff to bilateral lower extremities. 4. Significant skin thickening and edema within soft tissues of bilateral lower extremities, most pronounced distally concerning for cellulitis. No contained fluid collection to suggest an abscess formation. 5. Severe left hip joint space narrowing with osteopenia and extensive subchondral sclerosis , which puts this patient at high risk for femoral fracture. 6. Mural bladder wall thickening. Correlation with urinalysis is recommended to exclude cystitis.
[2024-09-19] MEDS: iohexol 350 mg/mL 500 mL Btl (per mL) IV (15:34)
== END 2024-09-19 14:43 | disposition home or self-care (01) ==
PROVIDERS: PCP Family Medicine; Visit Provider Thoracic Surgery (Cardiothoracic Vascular Surgery)
DX: I87.2 Venous insufficiency (chronic) (peripheral) (principal); M79.604 Pain in right leg; I70.0 Atherosclerosis of aorta; I70.8 Atherosclerosis of other arteries; R93.89 Abnormal findings on diagnostic imaging of other specified body structures; R23.4 Changes in skin texture; M79.89 Other specified soft tissue disorders; M85.88 Other specified disorders of bone density and structure, other site; N32.89 Other specified disorders of bladder; K55.1 Chronic vascular disorders of intestine; I70.1 Atherosclerosis of renal artery; I70.202 Unspecified atherosclerosis of native arteries of extremities, left leg; I70.291 Other atherosclerosis of native arteries of extremities, right leg; R93.2 Abnormal findings on diagnostic imaging of liver and biliary tract; R93.421 Abnormal radiologic findings on diagnostic imaging of right kidney; R93.422 Abnormal radiologic findings on diagnostic imaging of left kidney; R93.3 Abnormal findings on diagnostic imaging of other parts of digestive tract; K40.90 Unilateral inguinal hernia, without obstruction or gangrene, not specified as recurrent; I96 Gangrene, not elsewhere classified; L97.811 Non-pressure chronic ulcer of other part of right lower leg limited to breakdown of skin
CPT/HCPCS: 75635; 97597; J9999

== ENCOUNTER 2024-09-19 15:46 | Outpatient (CLI) | payer MEDICARE, BC, SELFPAY | END 2024-09-19 15:47 | disposition home or self-care (01) | LOC: SPT 15:47 | PROVIDERS: PCP Family Medicine; Visit Provider Podiatrist Foot & Ankle Surgery | DX: Z46.89 Encounter for fitting and adjustment of other specified devices (principal); G62.9 Polyneuropathy, unspecified; L84 Corns and callosities | CPT/HCPCS: L3030 ==

== ENCOUNTER → 2024-09-25 10:21 | Outpatient (BNVA) | payer MEDICARE, BC, SELFPAY | PROVIDERS: PCP Family Medicine; Visit Provider Thoracic Surgery (Cardiothoracic Vascular Surgery) | DX: I73.9 Peripheral vascular disease, unspecified (principal); L97.811 Non-pressure chronic ulcer of other part of right lower leg limited to breakdown of skin | CPT/HCPCS: 99212 ==

== ENCOUNTER → 2024-10-02 10:06 | Outpatient (BNVA) | payer MEDICARE, BC, SELFPAY | PROVIDERS: PCP Family Medicine; Visit Provider Thoracic Surgery (Cardiothoracic Vascular Surgery) | DX: I96 Gangrene, not elsewhere classified (principal); I87.2 Venous insufficiency (chronic) (peripheral); L97.811 Non-pressure chronic ulcer of other part of right lower leg limited to breakdown of skin | CPT/HCPCS: 97597; A6251 ==

== ENCOUNTER → 2024-10-08 15:02 | Outpatient (BNVA) | payer MEDICARE, BC, SELFPAY | PROVIDERS: PCP Family Medicine; Visit Provider Internal Medicine Cardiovascular Disease | DX: R07.9 Chest pain, unspecified (principal); I48.91 Unspecified atrial fibrillation | CPT/HCPCS: 93005 ==

== ENCOUNTER → 2024-10-09 08:33 | Outpatient (BNVA) | payer MEDICARE, BC, SELFPAY | PROVIDERS: PCP Family Medicine; Visit Provider Thoracic Surgery (Cardiothoracic Vascular Surgery) | DX: I73.9 Peripheral vascular disease, unspecified (principal); L97.811 Non-pressure chronic ulcer of other part of right lower leg limited to breakdown of skin | CPT/HCPCS: 97597 ==

== ENCOUNTER → 2024-10-10 10:47 | Outpatient (BNVA) | payer MEDICARE, BC, SELFPAY | PROVIDERS: PCP Family Medicine; Visit Provider Family Medicine | DX: I87.2 Venous insufficiency (chronic) (peripheral) (principal) | CPT/HCPCS: 80053; 85025 ==

== ENCOUNTER → 2024-10-16 08:17 | Outpatient (BNVA) | payer MEDICARE, BC, SELFPAY | PROVIDERS: PCP Family Medicine; Visit Provider Thoracic Surgery (Cardiothoracic Vascular Surgery) | DX: I73.9 Peripheral vascular disease, unspecified (principal); I87.2 Venous insufficiency (chronic) (peripheral); L97.811 Non-pressure chronic ulcer of other part of right lower leg limited to breakdown of skin | CPT/HCPCS: 97597 ==

== ENCOUNTER → 2024-10-17 07:10 | Outpatient (BNVA) | payer MEDICARE, BC, SELFPAY | PROVIDERS: PCP Family Medicine; Visit Provider Podiatrist Foot & Ankle Surgery | DX: I73.9 Peripheral vascular disease, unspecified (principal); B35.1 Tinea unguium; R73.03 Prediabetes; L84 Corns and callosities | CPT/HCPCS: 11721 ==

== ENCOUNTER → 2024-10-23 08:17 | Outpatient (BNVA) | payer MEDICARE, BC, SELFPAY | PROVIDERS: PCP Family Medicine; Visit Provider Thoracic Surgery (Cardiothoracic Vascular Surgery) | DX: I87.2 Venous insufficiency (chronic) (peripheral) (principal); I73.9 Peripheral vascular disease, unspecified; L97.811 Non-pressure chronic ulcer of other part of right lower leg limited to breakdown of skin | CPT/HCPCS: 97597 ==

== ENCOUNTER 2024-10-26 08:40 | Outpatient (CLI) | payer MEDICARE, BC, SELFPAY ==
[2024-10-26 09:24] LABS: Basophils % 0.4 %; Eosinophils # 0.3 10^3/uL (0.0-0.8); Eosinophils % 3.3 %; Hematocrit 35.4 % (37-53); Lymphocytes # 2.1 10^3/uL (0.8-4.8); Lymphocytes % 24.5 %; Mean Corpuscular HGB Conc 31.9 g/dL (30-55); Mean Corpuscular Volume 81.4 fl (82-101); Mean Platelet Volume 10.1 fL (7.4-10.4); Monocytes # 0.9 10^3/uL (0.2-0.9); Monocytes % 10.1 %; Neutrophils # 5.17 10^3/uL (1.8-7.7); Neutrophils % 61.5 %; Nucleated Red Blood Cells % 0 %; Platelet Count 287 10^3/cmm (157-399); Red Blood Count 4.35 10^6/uL (3.85-5.65); Red Cell Distribution Width 16.3 % (12.1-15.1); White Blood Count 8.41 10^3/uL (3.29-11.43)
[2024-10-26 09:29] LABS: INR 1.14 (0.83-1.21); Prothrombin Time (Patient) 15.4 Seconds (12.0-15.1)
[2024-10-26 09:36] LABS: Anion Gap 18.3 (5-19); Blood Urea Nitrogen 12 mg/dL (8-23); Carbon Dioxide 23 mmol/L (22-29); Chloride 95 mmol/L (98-107); Glucose 111 mg/dL (65-115); Osmolality Calculated 274 mOsm/kg (285-295); Potassium 4.3 mmol/L (3.5-5.1); Sodium 132 mmol/L (136-145)
== END 2024-10-26 08:41 | disposition home or self-care (01) ==
LOC: LAB 08:41
PROVIDERS: PCP Family Medicine; Visit Provider Internal Medicine Cardiovascular Disease
DX: I73.9 Peripheral vascular disease, unspecified (principal)
CPT/HCPCS: 36415; 80048; 85025; 85610

== ENCOUNTER 2024-10-31 07:27 | Outpatient (CLI) | payer MEDICARE, BC, SELFPAY ==
[2024-10-31 07:30] VITALS: BP 162/86; PULSE 91; RESP 18; TEMP 36.8; O2SAT 99; BMI 37.3
--- NOTE | 2024-10-31 08:30 | XACV_ITS ---
Ht: 178 cm Wt: 118 kg BSA: 2.46 m2 Any Known Allergies: Other Gender: Male : 1950 Exam Type: Invasive Peripheral Vascular Procedure(s): Procedure Description: Peripheral Cath Diagnostic Procedure Procedure Description: Abdominal aortic angiography Procedure Description: Lower extremities' angiography Exam Priority: Routine Aundrea RENTERIA; Luma Indication for peripheral angiogram: Critical limb ischemia with nonhealing ulcer of the right foot and leg Catheters used: RIM, UF, 6 [place] long sheathCatheter was placed in the mid abdominal region near T12 angiogram of the abdominal aorta was performed Abdominal aortogram: No significant aneurysm noted mild atherosclerosis noted Right renal artery: Patent Left renal artery: PatentRim catheter was then navigated to the right iliac, it was then engaged, Right common iliac high-grade subtotally occluded calcified ostial lesion with small collateralized channel feeding the proximal segment of the right common iliac proximal segment of the right common iliac before bifurcation into internal and external iliac has high-grade calcified severe stenosisRight external iliac: 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 Patent Right peroneal artery: Appeared to be patentThrough the 6 [place] left common femoral shot sheath through which access was obtained, left lower limb peripheral angiogram was obtained with runoff as followsLeft common iliac artery: Mild ostial lesion otherwise no significant stenosis Left external iliac artery: There appeared to be moderate to severe calcified proximal lesion Left internal iliac artery: No significant stenosis Left common femoral artery: No significant stenosis Left profundofemoral artery: No significant stenosis Left SFA artery: No significant stenosis Left popliteal artery: No significant stenosis Left tibioperoneal artery: No significant stenosis Left anterior tibial artery: Appeared to be occluded in the proximal segment reconstituting the distal with peroneal Left posterior tibial artery: Appeared to be proximally occluded reconstituted in the middle through collaterals Left peroneal artery: Appeared to be patent. Recommendations 1-Return to inpatient for close monitoring and routine cath care 2-Risk factor modification for secondary prevention 3-Statin and aspirin 81 mg life-long, if tolerated 4-refer to vascular surgery for aorta iliac bypass grafting, patient is not sure about it, will give him some time to think about it if he refuses about vascular surgery we will consider percutaneous options using lithotripsy and Viabahn stents 5-Continue optimal medical management 6-Follow up with Dr. Guillaume in four weeks and your primary care in 10 days. Hemodynamic Data Phase:Rest AO : 137.0 / 82.0 ( 108.0 ) @ 10:47:00 AM Access Site Site: Left Femoral artery Sheath Size: 6 Fr Hemost... Method: Angio-Seal VIP ([facility]) Hemost... Success: Successful Procedure Details Findings Procedure Consent Obtained. Pre-Procedure Time Out. Identified patient by full name and date of as verbalized by the patient/guarantor. Does the consent match the physician's order: Yes. Accurate & Complete Informed Consent: Yes. Inpatient/Outpatient History & Physical on Chart: Yes. If H&P is completed, is and addenduem needed: No. Visualize and Verify Site with Patient/Guarantor: N/A. Relevant Radiology Images available: Yes. The risks, benefits, and alternatives of sedation and/or procedure were discussed by physician. The patient agrees to continue. Procedure started. Current diagnosis: PVD. PERRLA. Strong, equal hand c t tech bilaterally. Lungs clear x 5 lobes. IV Site on Arrival: 20 gauge in the right forearm. IV Fluids: 0.9% NaCl at KVO. 0 mL infused prior to cath lab manager. Pre Procedural Pulses: bilateral dorsalis pedis was Doppled. Pre Procedural Pulses: bilateral posterior tibial was Doppled. Pre Procedural Pulses: bilateral radial was 2+. Oxygen started at 2liters/min via nasal canula. bilateral groins was prepped with chloroprep then draped in the usual sterile fashion. Physician notified. Baseline sample Acquired. HR: 77 BPM. Patient's family in CPRU room #2. Dr[address] Guillaume will update a the completion of the procedure. Equipment: 6F - Femoral. Cardiac Cath Pack. ACIST Manifold Kit Model BT 2000. Heparinized Saline (2 units/mL), 1000 mL bag. Kit, Micropuncture. Physician arrived. Physician scrubbed in. Immediate Pre-Procedure Time Out. Correct Patient: Yes; Correct Procedure: Yes; Correct Site: Yes; Correct Patient Position: Yes; Correct Supplies: Yes; Dried Flammable Prep: Yes; Blood Products Available: N/A;. Lidocaine 1% infiltrated to the left groin. Arterial access obtained with micropuncture set. A 5Fr UF catheter in over the standard J wire. Pigtail postioned above the bifurcation of the iliacs. Aortagram performed @ 10 mL/sec for a total of 30 mL. Right common iliac selected and arteriogram with runoff performed @ 10 mL/sec for a total of 30 mL. 0.035 x 260cm stiff angled glidewire in through the UF catheter. UF Catheter out over the glidewire. A 5Fr RIM catheter in over the glidewire. Glidewire out. Right common iliac selected and arteriogram with runoff performed @ 10 mL/sec for a total of 30 mL in DSA. Right common iliac selected and arteriogram with runoff performed @ 10 mL/sec for a total of 30 mL in DSA. Right common iliac selected and arteriogram with runoff performed @ 10 mL/sec for a total of 30 mL. RIM Catheter removed over the standard J wire. Sheath injected in Left common femoral artery and runoff performed. Lidocaine 1% infiltrated to the left groin. A Angio-Seal VIP ([facility]) was successful obtaining hemostatsis at the Left Femoral artery insertion site. Angioseal placed without complications. No signs or symptoms of hematoma noted. Sterile dressing applied per usual sterile fashion. Lot # [id number]. Exp. . Post Procedure: Pulses reassessed and unchanged. PERRLA. Strong, equal hand c t tech bilaterally. No VTE prophylaxis required. Medication's Wasted: Heparin = 1000 units. Total IV fluids: 60 mL. Post-op diagnosis: PVD. Complications: none. Estimated blood loss: 5mL-10mL. Responsiveness - Normal response to verbal stimuli; alert and oriented, PERRLA. Airway - Unaffected, no intervention required; spontaneous ventilation. Circulation: W/N/L, pulses unchanged. Nausea/Vomiting: No. Procedure completed. Patient transferred by bed to 1st floor. Vital chart was stopped. Procedure Medications Start: 9:24 AM Stop: 9:24 AM Medication: Versed Amount: 1 mg Route: I.V. Start: 9:24 AM Stop: 9:24 AM Medication: Benadryl Amount: 50 mg Route: I.V. Start: 9:41 AM Stop: 9:41 AM Medication: Versed Amount: 1 mg Route: I.V. Start: 10:07 AM Stop: 10:07 AM Medication: Versed Amount: 1 mg Route: I.V. I, the attending physician, have reviewed and verified all procedure medications. Yes, all medications given per verbal order History/Risk Factors Hypertension: Yes Dyslipidemia: No Peripheral Arterial Disease (PAD): Yes Obesity: Yes Renal Disease: No Tobacco Use: Never Prior Interventions PCI: No CABG: No Valve Surgery: No Report Signatures Finalized by Andrea Guillaume MD on 11/21/2024 07:13 PM
--- NOTE | 2024-10-31 09:22 | W.PM.OPSUD ---
Surgery/Procedure H&P Update DATE OF PROCEDURE: October 31, 2024 DATE H&P PERFORMED: 10/05/24 H&P UPDATE INFORMATION: I have reviewed H&P completed within last 30 days, I have examined patient prior to procedure, No changes to prior documentation, Changes to prior documentation as noted here and Risks and benefits of the procedure reviewed PREOP DIAGNOSIS: Critical limb ischemia with nonhealing right foot ulcer, severe PAD PRIMARY INDICATION FOR PROCEDURE: 73-year-old male past medical history significant for hypertension hyperlipidemia recurrent cellulitis, nonhealing right foot ulcer underwent CTA with runoff which was consistent with moderate to high-grade multiple bilateral iliac and SFA disease. It is the reason patient is here and scheduled for peripheral angiogram. Patient has been explained all risk-benefit and alternative for the procedure. Patient fully understand risk for stroke major minor bleed which is more than 2%. Patient understand risk for urgent emergent vascular bypass surgery with limb loss amputation acute limb ischemia during the procedure or as a result of complication. He understand 5 to 6% risk of contrast-induced nephropathy. He would like to proceed with it. PLANNED PROCEDURE: Operation Date: 10/31/24 08:30 Proposed Procedures p Peripheral Diagnostic - perip angiogram(Not Applicable) - Andrea Guillaume MD PATIENT REASSESSED PRIOR TO SEDATION, WITH NO CHANGE NOTED: Yes PHYSICAL EXAM: alert, oriented x 3, clear to auscultation bilaterally, regular rate & rhythm and operative site marked AIRWAY EVAL/ANESTHESIA PLAN: ASA II, Risks, benefits & alternatives of sedation and/or procedure discussed and Patient agrees to continue as planned
[2024-10-31 10:15] VITALS: PULSE 78; RESP 22; O2SAT 98
[2024-10-31 10:37] VITALS: BP 136/88; PULSE 80; RESP 18; TEMP 36.6; O2SAT 93
--- NOTE | 2024-10-31 10:40 | PM.PROC ---
Procedure Note: Date of procedure: 10/31/24 Pre-procedure diagnosis: Critical limb ischemia with severe PAD Post-procedure diagnosis: same Procedure: Peripheral angiogram was performed for critical limb ischemia nonhealing right foot ulcer. Patient was noted to have high-grade calcified ostial and mid right common iliac artery disease with calcified nodule in the right common iliac ostium not amenable to intervention Patient was also noted to have multiple high-grade 90% calcified lesion in the left common and external iliac artery Bilateral common femoral SFA popliteal and tibioperoneal trunk did not show significant stenosis Three-vessel runoff is noted on the right side while two-vessel runoff was noted on the left side with occlusion of proximal posterior tibial receiving collaterals in the distal end Recommendation: Aorto iliac bypass, referred to vascular surgery as an outpatient Plan: Patient has been Angio-Seal on the left common femoral artery, after completing 4-hour bedrest will assess and discharge today. Continue bedrest for 4 hours IV fluid 100 mL/h for next 4 hours Pain medications if needed can use fentanyl 25 mcg Q4 as needed Coding Level of Care Code Acute Code for Clyde Perla
--- NOTE | 2024-10-31 11:16 | PC.NURSE ---
patient arrived on the floor at 1012am from labor and delivery registered nurse. Sunshine Madsen gave report. Patient resting in bed.
== END 2024-10-31 18:12 | disposition home or self-care (01) ==
LOC: CCL 07:28 → CSU 10:36
PROVIDERS: PCP Family Medicine; Visit Provider Internal Medicine Cardiovascular Disease
DX: I70.221 Atherosclerosis of native arteries of extremities with rest pain, right leg (principal); I74.5 Embolism and thrombosis of iliac artery; L97.919 Non-pressure chronic ulcer of unspecified part of right lower leg with unspecified severity; E66.9 Obesity, unspecified; Z68.37 Body mass index [BMI] 37.0-37.9, adult; J44.9 Chronic obstructive pulmonary disease, unspecified; I48.91 Unspecified atrial fibrillation; Z79.82 Long term (current) use of aspirin; E87.1 Hypo-osmolality and hyponatremia; I12.9 Hypertensive chronic kidney disease with stage 1 through stage 4 chronic kidney disease, or unspecified chronic kidney disease; E11.22 Type 2 diabetes mellitus with diabetic chronic kidney disease; N18.9 Chronic kidney disease, unspecified; K21.9 Gastro-esophageal reflux disease without esophagitis; E11.622 Type 2 diabetes mellitus with other skin ulcer
CPT/HCPCS: 36415; 75625; 75716; 99152; 99153; C1760; C1769; C1887; C1894; G0269; J1200; J1644; J2250; J3010; J7030; J9999; Q9967

== ENCOUNTER 2024-11-06 10:04 | Outpatient (CLI) | payer MEDICARE, BC, SELFPAY ==
--- NOTE | 2024-11-06 10:15 | US_ITS ---
WS: [id number] Exam: US soft tissue head neck [id number] Date/Time of Exam: 11/06/2024 10:17 AM Reason For Exam: US right Parotid gland to rule out abscess The RIGHT parotid gland is targeted for ultrasound evaluation. The LEFT parotid gland was also included for comparison purposes. There was no evidence of solid mass or nodule in the RIGHT parotid gland. No abnormal soft tissue fluid collections were demonstrated. No abnormal findings in the LEFT parotid gland. US/US soft tissue head neck [id number] IMPRESSION: 1. No solid mass or abnormal fluid collection in the RIGHT parotid gland.
== END 2024-11-06 10:05 | disposition home or self-care (01) ==
LOC: RAD 10:07
PROVIDERS: PCP Family Medicine; Visit Provider Family Medicine
DX: M25.80 Other specified joint disorders, unspecified joint (principal)
CPT/HCPCS: 76536; 97597

== ENCOUNTER → 2024-11-07 08:26 | Outpatient (BNVA) | payer MEDICARE, BC, SELFPAY | PROVIDERS: PCP Family Medicine; Visit Provider Nurse Practitioner Family | DX: I73.9 Peripheral vascular disease, unspecified (principal); I70.0 Atherosclerosis of aorta; I10 Essential (primary) hypertension; Z09 Encounter for follow-up examination after completed treatment for conditions other than malignant neoplasm; Z79.82 Long term (current) use of aspirin; Z87.891 Personal history of nicotine dependence | CPT/HCPCS: 99213 ==

== ENCOUNTER → 2024-11-13 08:22 | Outpatient (BNVA) | payer MEDICARE, BC, SELFPAY | PROVIDERS: PCP Family Medicine; Visit Provider Thoracic Surgery (Cardiothoracic Vascular Surgery) | DX: Z09 Encounter for follow-up examination after completed treatment for conditions other than malignant neoplasm (principal); Z87.2 Personal history of diseases of the skin and subcutaneous tissue | CPT/HCPCS: 99212 ==

== ENCOUNTER 2024-11-16 08:48 | Outpatient (CLI) | payer MEDICARE, BC, SELFPAY ==
[2024-11-16 09:36] LABS: Hematocrit 33.4 % (37-53); Hemoglobin 10.70 g/dL (11.27-16.99); Mean Corpuscular HGB Conc 32.0 g/dL (30-55); Mean Corpuscular Hemoglobin 25.6 pg (27-33); Mean Corpuscular Volume 79.9 fl (82-101); Nucleated Red Blood Cells % 0 %; Platelet Count 226 10^3/cmm (157-399); Red Blood Count 4.18 10^6/uL (3.85-5.65); White Blood Count 8.15 10^3/uL (3.29-11.43)
[2024-11-16 09:49] LABS: INR 1.12 (0.8-1.2); Prothrombin Time 15.20 SECONDS (12.1-14.9)
[2024-11-16 09:54] LABS: Anion Gap 17.9 (5-19); Blood Urea Nitrogen 17 mg/dL (8-23); Calcium 8.9 mg/dL (8.5-10.5); Carbon Dioxide 21 mmol/L (22-29); Chloride 94 mmol/L (98-107); Glucose 110 mg/dL (65-115); Osmolality Calculated 268 mOsm/kg (285-295); Potassium 4.9 mmol/L (3.5-5.1); Sodium 128 mmol/L (136-145)
== END 2024-11-16 08:49 | disposition home or self-care (01) ==
PROVIDERS: PCP Family Medicine; Visit Provider Nurse Practitioner Family
DX: I10 Essential (primary) hypertension (principal); I73.9 Peripheral vascular disease, unspecified
CPT/HCPCS: 36415; 80048; 85025; 85610

== ENCOUNTER 2024-11-19 08:50 | Outpatient (CLI) | payer MEDICARE, BC, SELFPAY ==
[2024-11-19] VITALS (27 sets, daily range): BP systolic 114–161; BP diastolic 68–104; PULSE 74–101; RESP 14–22; TEMP 36.4–36.8; O2SAT 90–100; BMI 36.2
[2024-11-19 09:18] LABS: Hematocrit 34.1 % (37-53); Hemoglobin 10.80 g/dL (11.27-16.99); Mean Corpuscular HGB Conc 31.7 g/dL (30-55); Mean Corpuscular Hemoglobin 25.7 pg (27-33); Mean Corpuscular Volume 81.0 fl (82-101); Nucleated Red Blood Cells % 0 %; Platelet Count 226 10^3/cmm (157-399); Red Blood Count 4.21 10^6/uL (3.85-5.65); White Blood Count 7.75 10^3/uL (3.29-11.43)
[2024-11-19 09:33] LABS: Anion Gap 17.7 (5-19); Blood Urea Nitrogen 13 mg/dL (8-23); Calcium 8.8 mg/dL (8.5-10.5); Carbon Dioxide 21 mmol/L (22-29); Chloride 91 mmol/L (98-107); Creatinine Clr Calc Pharmacy 68.4101; Glucose 107 mg/dL (65-115); Osmolality Calculated 261 mOsm/kg (285-295); Potassium 4.7 mmol/L (3.5-5.1); Sodium 125 mmol/L (136-145)
--- NOTE | 2024-11-19 09:36 | W.PM.OPSFHP ---
Same Day Surgery H&P Indication for Procedure/HPI DATE OF PROCEDURE: November 19, 2024 CHIEF COMPLAINT/INDICATIONFOR SURGICAL PROCEDURE: Critical limb ischemia with severe bilateral iliac disease high-grade calcified right ostial iliac disease. 74-year-old male past medical history significant for frail severe peripheral arterial disease chronic ulcer of right lower extremity nonhealing atrial fibrillation chronic kidney disease COPD GERD diabetes mellitus for nonhealing wound ulcer critical limb ischemia underwent peripheral angiogram noted to have highly calcified bilateral iliac disease. Patient was given choice for vascular surgery which she declined and would like to proceed if we can try first to see whether he can be revascularize percutaneously. Patient was clearly explained in detail all risk-benefit and alternative for the procedure including 5% stroke major bleed, patient understand 10 to 15% risk of urgent emergent vascular surgery thromboembolism leading to acute limb ischemia worst-case scenario amputation, contrast induced nephropathy leading to temporary or permanent renal failure, pseudoaneurysm vascular injury bruising infection hematoma. He agrees to it and would like to proceed with percutaneous intervention. It is the reason today he is here. PREOP DIAGNOSIS: As above, critical limb ischemia with nonhealing right lower ext ulcer PLANNED PROCEDURE: Operation Date: 11/19/24 10:00 Proposed Procedures p Peripheral Diagnostic - Illiac NUCLEAR LOGGING ENGINEER and stent / illiac atherectomy / Femoral NUCLEAR LOGGING ENGINEER with stent(Bilateral) - Andrea Guillaume MD 74-year-old male past medical history significant for frail severe peripheral arterial disease chronic ulcer of right lower extremity nonhealing atrial fibrillation chronic kidney disease COPD GERD diabetes mellitus for nonhealing wound ulcer critical limb ischemia underwent peripheral angiogram noted to have highly calcified bilateral iliac disease. Patient was given choice for vascular surgery which she declined and would like to proceed if we can try first to see whether he can be revascularize percutaneously. Patient was clearly explained in detail all risk-benefit and alternative for the procedure including 5% stroke major bleed, patient understand 10 to 15% risk of urgent emergent vascular surgery thromboembolism leading to acute limb ischemia worst-case scenario amputation, contrast induced nephropathy leading to temporary or permanent renal failure, pseudoaneurysm vascular injury bruising infection hematoma. He agrees to it and would like to proceed with percutaneous intervention. It is the reason today he is here Medications/Allergies* Home Medications ?Medication ?Instructions ?Recorded ?Confirmed ?Type aspirin 325 mg tablet 325 mg PO QAM 02/28/23 11/16/24 History tamsulosin 0.4 mg capsule 0.4 mg PO DAILY 09/29/23 11/16/24 History furosemide 40 mg tablet (Lasix) 40 mg PO QAM 06/21/24 11/16/24 History Allergies/Adverse Reactions Allergy/AdvReac Type Severity Reaction Status Date / Time oxycodone Allergy ADR-Itching Verified 11/07/24 08:41 fentanyl AdvReac Intermediate made him Verified 11/07/24 08:41 paranoid Current Medications: Generic Name Dose Route Start Last Admin Trade Name Freq PRN Reason Stop Dose Admin Sodium Chloride 1,000 mls @ 50 mls/hr 11/19/24 09:00 11/19/24 09:31 Sodium Chloride 0.9% IV 11/20/24 04:59 Not Given .Q20H ONE Pertinent History/Comorbid Conditions* Medical History (Updated 11/07/24 @ 08:49 by Hemalatha Banerjee NP) PAD (peripheral artery disease) Subchondral sclerosis Atrial fibrillation Lumbar spinal stenosis Hyponatremia This has been chronic for several years. Made worse by diuretics. Negative work-up otherwise Gout Chronic kidney disease (CKD) Hypertension Diabetes mellitus type 2, controlled COPD (chronic obstructive pulmonary disease) GERD (gastroesophageal reflux disease) Social History Smoking and tobacco/nicotine status: former use of tobacco/nicotine Pertinent Exam Findings alert, oriented x 3, clear to auscultation bilaterally, regular rate & rhythm, operative site marked and procedure specific exam findings (Absent pulses bilateral lower extremity) Conscious Sedation Assessment PATIENT ASSESSED PRIOR TO SEDATION, WITH NO CHANGE NOTED: Yes AIRWAY EVAL/ANESTHESIA PLAN: ASA II, Risks, benefits & alternatives of sedation and/or procedure discussed and Patient agrees to continue as planned Recommendations Surgery/Procedure today Coding Level of Care Code Acute Code for Chg Fwd
--- NOTE | 2024-11-19 09:42 | XACV_ITS ---
Wt: 118 kg BSA: 2.47 m2 Any Known Allergies: Other Gender: Male : 1950 Exam Type: Invasive Peripheral Vascular Procedure(s): Procedure Description: Diagnostic procedure Procedure Description: Peripheral Cath Diagnostic Procedure Procedure Description: Abdominal aortic angiography Procedure Description: Iliac arterial aortic angiography Procedure Description: Lower extremities' angiography Procedure Description: Peripheral vascular Intervention Procedure Description: PV Balloon Procedure Description: PV Stent Procedure Description: Miscellaneous Procedure Description: ACT Exam Priority: Routine Aundrea RENTERIA; Lower Extremity Interventional Findings Intervention of right ostial and mid to distal common iliac: Through retrograde right common femoral access using 6 Azeri sheath and using Glidewire we were able to cross with somewhat difficulty through right common femoral ostial highly calcified lesion. Using seeker catheter Glidewire was exchanged with command wire. Shockwave M5 IV L8 0.0 x 60 mm catheter was placed in the proximal ostial and mid to distal segment of the right common femoral artery. It was treated with multiple shock which were delivered at 4 kourtney of the balloon inflation. IV L catheter was pulled out of the patient's body. Using Quincy Viabahn 8.0 x 39 mm balloon expandable stent ostial to distal right common femoral artery was treated and stented. Excellent angiographic result with good flow was noted.Intervention of the left ostial external iliac was performed: Using IVR 8.0 x 60 mm catheter multiple ultrasound waves were delivered to modify the calcified lesion. It was followed by treatment with AB Omnilink stent 8.0 x 39 mm. Excellent angiographic result with good flow was noted without any complication.Patient tolerated procedure well both common femoral arteries were treated with Angio-Seal.No complication. Conclusions Indication for peripheral angiogram: Critical limb ischemia Catheters used: UF catheter, IVL catheterAbdominal aortogram: Was not performed Right renal artery: Angiogram was not performed Left renal artery: Angiogram was not performedThrough the left common femoral approach UF catheter was placed in the lower abdominal aorta, right common iliac artery angiogram was performedRight common iliac: High-grade ostial subtotally occluded and high-grade mid highly calcified stenosis followed by medium size aneurysmRight external iliac Diffuse luminal irregularity without significant stenosis Right internal iliac: Diffusely diseasedRight common femoral 6 Azeri short sheath was used to perform right common femoral, SFA/profunda and below the knee runoffRight common femoral artery: Luminal irregularity without significant stenosis Right profundofemoral artery: No significant stenosis Right SFA: No significant stenosis Right popliteal artery: No significant stenosis Right tibioperoneal trunk: No significant stenosis Right anterior tibial artery: No significant stenosis Right anterior tibial artery: No significant stenosis Right peroneal artery: No significant stenosisUsing UF catheter in the lower abdominal aorta left common iliac artery angiogram was performedLeft common iliac artery: Mild to moderate stenosis in the proximal segment of the left common iliac with no significant gradient Left external iliac artery: Ostial high-grade calcified significant stenosis with 60 mm of gradient across it Left internal iliac artery: Luminal irregularity without significant stenosis Left common femoral artery: Luminal irregularity without significant stenosis Left profundofemoral artery: Luminal irregularity without significant stenosis No further imaging of the left below hip joint was taken since we had prior images few days back. Intervention of right ostial and mid to distal common iliac: Through retrograde right common femoral access using 6 Azeri sheath and using Glidewire we were able to cross with somewhat difficulty through right common femoral ostial highly calcified lesion. Using seeker catheter Glidewire was exchanged with command wire. Shockwave M5 IV L8 0.0 x 60 mm catheter was placed in the proximal ostial and mid to distal segment of the right common femoral artery. It was treated with multiple shock which were delivered at 4 kourtney of the balloon inflation. IV L catheter was pulled out of the patient's body. Using Quincy Viabahn 8.0 x 39 mm balloon expandable stent ostial to distal right common femoral artery was treated and stented. Excellent angiographic result with good flow was noted.Intervention of the left ostial external iliac was performed: Using IVR 8.0 x 60 mm catheter multiple ultrasound waves were delivered to modify the calcified lesion. It was followed by treatment with AB Omnilink stent 8.0 x 39 mm. Excellent angiographic result with good flow was noted without any complication.Patient tolerated procedure well both common femoral arteries were treated with Angio-Seal.No complication. Recommendations 1-Return to inpatient for close monitoring and routine cath care 2-Risk factor modification for secondary prevention 3-Statin and aspirin 81 mg life-long, if tolerated 4-Patient was pre-loaded with 300 mg of Plavix, continue Plavix 75mg p.o. daily for at least 3 months, will add low-dose Xarelto 5-Continue optimal medical management 6-Follow up with Dr. Guillaume in four weeks and your primary care in 10 days. Hemodynamic Data Phase:Rest AO : / ( 0.0 ) @ 11:30:00 AM 142.0 / 63.0 ( 96.0 ) @ 11:30:00 AM 129.0 / 74.0 ( 100.0 ) @ 11:58:00 AM 135.0 / 80.0 ( 106.0 ) @ 12:07:00 PM 100.0 / 64.0 ( 80.0 ) @ 12:22:00 PM 132.0 / 65.0 ( 95.0 ) @ 12:35:00 PM 150.0 / 75.0 ( 107.0 ) @ 12:39:00 PM / ( 0.0 ) @ 12:43:00 PM 165.0 / 78.0 ( 117.0 ) @ 12:43:00 PM 151.0 / 71.0 ( 106.0 ) @ 12:44:00 PM Access Site Site: Right Femoral artery Sheath Size: 7 Fr Hemost... Method: Angio-Seal VIP ([facility]) Hemost... Success: Successful Site: Left Femoral artery Sheath Size: 6 Fr Hemost... Method: Angio-Seal VIP ([facility]) Hemost... Success: Successful Procedure Details Findings Procedure Consent Obtained. Admit Source: Out Patient. Pre-Procedure Time Out. Identified patient by full name and date of as verbalized by the patient/guarantor. Does the consent match the physician's order: Yes. Accurate & Complete Informed Consent: Yes. Inpatient/Outpatient History & Physical on Chart: Yes. If H&P is completed, is and addenduem needed: No; If yes, is the addendum complete: N/A. Visualize and Verify Site with Patient/Guarantor: N/A. Relevant Radiology Images available: Yes. The risks, benefits, and alternatives of sedation and/or procedure were discussed by physician. The patient agrees to continue. Procedure started. Correct patient, site and procedure confirmed by cath team. Pre OP diagnosis: critical limb ischemia; nonhealing ulcer or the right leg. PERRLA. Strong, equal hand rn urgent care bilaterally. Lungs clear x 5 lobes. IV Site on Arrival: 20 gauge in the left anticubital. IV Fluids: 0.9% NaCl at KVO. 0 mL infused prior to laborer/grade check. Pre Procedural Pulses: bilateral dorsalis pedis was Doppled. Pre Procedural Pulses: bilateral posterior tibial was Absent. Pre Procedural Pulses: bilateral radial was 2+. Oxygen started at 3liters/min via nasal canula. bilateral groins was prepped with chloroprep then draped in the usual sterile fashion. Physician notified. Baseline sample Acquired. HR: 69 BPM. Physician arrived. Physician scrubbed in. Immediate Pre-Procedure Time Out. Correct Patient: Yes; Correct Procedure: Yes; Correct Site: Yes; Correct Patient Position: Yes; Correct Supplies: Yes; Dried Flammable Prep: Yes; Blood Products Available: N/A;. Family updated by MD prior to the start of the procedure. Lidocaine 1% infiltrated to the right groin. Arterial access obtained. Site predilated with a 6 upper sorbian system. Lidocaine 1% infiltrated to the left groin. Arterial access obtained. A 5FrFr UF catheter in over wire. Abdominal aortogram using digital subtraction performed in AP @ 10 mL/sec for a total of 30 mL. UF catheter placed on KVO. Seeker catheter and glidewire inserted through the right femoral sheath. Seeker/Glidewire advanced across the lesion in the right commone iliac. Glidewire out. 300 cm Command wire in through the Seeker. Seeker removed over the wire. Inflation number : 1 A Shockwave M5 IVL 8.0x 60 mm was prepped and advanced across the Ostial Common Iliac, Right , then inflated to 4 KOURTNEY for 0:40 seconds. IVL performed. Inflation number: 2 The Shockwave M5 IVL 8.0x 60 mm was reinflated across the Ostial Common Iliac, Right, to 4 KOURTNEY for 0:25 seconds. IVL performed. Inflation number: 3 The Shockwave M5 IVL 8.0x 60 mm was reinflated across the Ostial Common Iliac, Right, to 4 KOURTNEY for 0:36 seconds. IVl performed. Inflation number: 4 The Shockwave M5 IVL 8.0x 60 mm was reinflated across the Ostial Common Iliac, Right, to 4 KOURTNEY for 0:25 seconds. IVL performed. Inflation number: 5 The Shockwave M5 IVL 8.0x 60 mm was reinflated across the Ostial Common Iliac, Right, to 4 KOURTNEY for 0:34 seconds. IVL performed. Shockwave balloon out over the wire. Seeker in over the command wire. Command wire out. ACT drawn. Results 274 seconds. Therapeutic limits - pre-heparin administration 90-150 seconds and monitoring heparin during a vascular procedure >250 seconds. Glidewire inserted through the seeker. Abdominal aortogram performed in AP @ 10 mL/sec for a total of 30 mL using the UF catheter. Shockwave ballon lot # [id number] exp 05/01/2026. Inflation Number : 6 A Quincy Viabahn 8.0 x 39 mm -Lot Number# [id number] EXP 08/02/2026 was prepped and advanced across the Ostial Common Iliac, Right. The stent was deployed at 12 KOURTNEY for 0:41 seconds. Stent Balloon out over the wire. Abdominal aortogram using digital subtraction performed in AP @ 10 mL/sec for a total of 30 mL. Command wire inserted through the UF on the left side. UF catheter removed. 8.0X 60 cm shockwave balloon loaded over the command wire on the left side. Left common femoral selected and arteriogram performed through the sheath at 10 ml/sec for a total of 20 ml. Inflation number: 1 The Shockwave M5 IVL 8.0x 60 mm was reinflated across the External Iliac, Left, to 4 KOURTNEY for 0:53 seconds. IVL Performed. Inflation number: 2 The Shockwave M5 IVL 8.0x 60 mm was reinflated across the External Iliac, Left, to 4 KOURTNEY for 0:10 seconds. IVL Performed. Inflation number: 3 The Shockwave M5 IVL 8.0x 60 mm was reinflated across the External Iliac, Left, to 4 KOURTNEY for 0:14 seconds. IVL Performed. Inflation number: 4 The Shockwave M5 IVL 8.0x 60 mm was reinflated across the External Iliac, Left, to 4 KOURTNEY for 0:15 seconds. IVL Performed. Inflation number: 5 The Shockwave M5 IVL 8.0x 60 mm was reinflated across the External Iliac, Left, to 4 KOURTNEY for 0:15 seconds. IVL Performed. Shockwave balloon out. Shockwave ballon lot # [id number] exp 05/01/2026. Left common femoral selected and arteriogram performed at 10 ml/sec for a total of 20 ml. Command wire removed. 2ND Glidewire inserted through the left femoral sheath. Inflation Number : 6 A AB OMNILINK STENT 8.0X38MM -Lot Number# [id number] EXP 08/29/2026 was prepped and advanced across the External Iliac, Left. The stent was deployed at 11 KOURTNEY for 0:44 seconds. Balloon out over the wire. Results checked. A 5Fr UF catheter in over wire Glidewire on the left side then glidewire removed. Abdominal aortogram performed using digital subtraction in AP @ 10 mL/sec for a total of 30 mL. Abdominal aortogram with runoff performed in AP @ 10 mL/sec for a total of 30 mL. UF catheter removed out of the left sheath. Glidewire out of the right sheath. Right common femoral selected and arteriogram with runoff performed at 10 ml/sec for a total of 30 ml. A Angio-Seal VIP ([facility]) was successful obtaining hemostatsis at the Right Femoral artery insertion site. Angioseal placed on the right side without complications. No signs or symptoms of hematoma noted. Sterile dressing applied per usual sterile fashion. lot #[id number] EXP 07/18/2025. ACT drawn. Results OUT OF RANGE LOW seconds. Therapeutic limits - pre-heparin administration 90-150 seconds and monitoring heparin during a vascular procedure >250 seconds. ACT drawn. Results 222 seconds. Therapeutic limits - pre-heparin administration 90-150 seconds and monitoring heparin during a vascular procedure >250 seconds. A Left femoral angiogram was performed to determine safe placement of closure device. Medication waste: Heparin 4000 unit; Lidocaine- 10 ml. Total IV fluids: 150 mL. A Angio-Seal VIP ([facility]) was successful obtaining hemostatsis at the Left Femoral artery insertion site. LOT [id number] EXP 07/18/2025. Sheath(s) removed and manual pressure held until hemostasis was achieved. Sterile 4x4 and Op-site applied to the puncture site. No oozing or hematoma noted. Post sheath removal instructions were given and the patient verbalized understanding. Post Procedure: Pulses reassessed and unchanged. PERRLA. Strong, equal hand rn urgent care bilaterally. No VTE prophylaxis required. Fluoro: 15:00. Contrast type used: Visipaque 320 mgI/mL, 500 mL bottle. [id number]. Post-op diagnosis: Severe PVD; Critical limb ischemia. Complications: None. Estimated blood loss: 5mL-10mL. Responsiveness - Normal response to verbal stimuli; alert and oriented, PERRLA. Airway - Unaffected, no intervention required; spontaneous ventilation. Circulation: W/N/L, pulses unchanged. Nausea/Vomiting: No. Procedure completed. Patient transferred by bed to CPRU. Vital chart was stopped. Procedure Medications Start: 9:53 AM Stop: 9:53 AM Medication: Benadryl Amount: 25 mg Route: I.V. Start: 10:01 AM Stop: 10:01 AM Medication: Versed Amount: 2 mg Route: I.V. Start: 10:25 AM Stop: 10:25 AM Medication: Versed Amount: 1 mg Route: I.V. Start: 10:41 AM Stop: 10:41 AM Medication: Heparin Amount: 5000 units Route: I.V. Start: 11:02 AM Stop: 11:02 AM Medication: Versed Amount: 1 mg Route: I.V. Start: 11:05 AM Stop: 11:05 AM Medication: Heparin Amount: 2000 units Route: I.V. Start: 11:49 AM Stop: 11:49 AM Medication: Versed Amount: 1 mg Route: I.V. Start: 11:51 AM Stop: 11:51 AM Medication: Versed Amount: 1 mg Route: I.V. Start: 12:00 PM Stop: 12:00 PM Medication: Plavix Amount: 600 mg Route: P.O. I, the attending physician, have reviewed and verified all procedure medications. Yes, all medications given per verbal order History/Risk Factors Hypertension: Yes Dyslipidemia: No Peripheral Arterial Disease (PAD): Yes Obesity: Yes Renal Disease: No Tobacco Use: Never Prior Interventions PCI: No CABG: No Valve Surgery: No Report Signatures Finalized by Andrea Guillaume MD on 12/09/2024 09:12 PM
--- NOTE | 2024-11-19 14:39 | PC.NURSE ---
Patient transferred from senior laboratory technician to CSU with bilat groining closures. Patient can ambulate 1600 per senior laboratory technician.
[2024-11-20] VITALS: BP 144/77; PULSE 81; RESP 19; TEMP 36.7; O2SAT 97
[2024-11-20 03:58] LABS: Hematocrit 32.5 % (37-53); Hemoglobin 10.30 g/dL (11.27-16.99); Mean Corpuscular HGB Conc 31.7 g/dL (30-55); Mean Corpuscular Hemoglobin 26.3 pg (27-33); Mean Corpuscular Volume 82.9 fl (82-101); Nucleated Red Blood Cells % 0 %; Platelet Count 200 10^3/cmm (157-399); Red Blood Count 3.92 10^6/uL (3.85-5.65); White Blood Count 7.48 10^3/uL (3.29-11.43)
[2024-11-20 04:00] VITALS: BP 139/85; PULSE 83; RESP 19; O2SAT 97
[2024-11-20 04:22] LABS: Anion Gap 15.9 (5-19); Blood Urea Nitrogen 13 mg/dL (8-23); Calcium 8.6 mg/dL (8.5-10.5); Carbon Dioxide 21 mmol/L (22-29); Chloride 99 mmol/L (98-107); Creatinine Clr Calc Pharmacy 68.4101; Glucose 118 mg/dL (65-115); Osmolality Calculated 273 mOsm/kg (285-295); Potassium 4.9 mmol/L (3.5-5.1); Sodium 131 mmol/L (136-145)
[2024-11-20 04:39] VITALS: PULSE 90
--- NOTE | 2024-11-20 08:33 | P.DS_ITS ---
<Statement entered by Andrea Guillaume MD - 11/26/24 14:36> Patient was evaluated and cared for in conjunction with an advanced practice practitioner. I personally examined the patient and reviewed the chart and all pertinent data including imaging, telemetry, and laboratory results. I discussed the patient in detail with the advanced practice practitioner. Please see their note for complete H&P testing result and agreed upon plan of care for the patient. Discharge Providers Date of Admission: 11/19/2024 Date of Discharge: November 20, 2024 Attending Provider at Admission: Dr. Guillaume Attending Provider at Discharge: Andrea Guillaume MD Primary Care Provider: Anand Geiger MD Reason for Visit Reason for Visit: I70.0 Brief History: The patient is a 74-year-old male presenting with peripheral artery disease and a chronic ulcer on the right lower extremity. The patient reports experiencing significant symptoms due to progressive peripheral artery disease, worsened in the right leg. A recent CTA indicated severe atherosclerosis and multifocal moderate to severe stenosis in the iliac and superficial femoral arteries, and stenosis in the bilateral renal arteries at their origin. The right foot has developed a chronic ulcer, suggestive of critical ischemia. The patient has a history of COPD, with a significant impact on respiratory capacity, and atrial fibrillation without notable coronary artery blockages in previous assessments. The existing ulcer has remained unhealed, presumably due to decreased peripheral arterial circulation. He underwent peripheral angiogram on 10/31/24 finding high-grade calcified ostial and mid right common iliac artery disease with calcified nodule in the right common iliac ostium not amenable to intervention, multiple high-grade calcified lesions in the left common and external iliac artery. Three-vessel runoff on the right side two-vessel runoff on the left with occlusion of proximal posterior tibial receiving collaterals in the distal end. Hospital Course Hospital Course He was brought back as a staged procedure for shockwave lithotripsy followed by Viabahn 8.0 x 60mm stent placement from right ostial to right mid common iliac artery. The left external iliac lesion was treated with lithotripsy followed by placement of Viabahn 8.0 x 39mm stent. He has done well overnight, sitting up on the side of the bed this morning and has ambulated to the bathroom without difficulty. No pain in the bilateral groins, no oozing or hematoma noted. Blood pressure is controlled, creatinine 1.2 which is normal. He will discharge home today, starting Xarelto 2.5mg BID and continuing Plavix. Continue carvedilol 12.5 mg BID, clonidine 0.1mg BID, Lasix 40mg daily. He can follow up with cardiology clinic in 7-10 days. Physical Exam Const: COMMON NORMALS: no acute distress and patient oriented x3 GENERAL APPEARANCE: cooperative ORIENTATION/CONSCIOUSNESS: Yes awake, Yes oriented to person, Yes oriented to place and Yes oriented to time Chest: COMMONS NORMALS: normal inspection of the chest and normal palpation of entire chest wall CHEST: Yes Symmetrical chest wall rise Resp: COMMON NORMALS: normal respiratory effort, No retractions, No use of accessory muscles and clear to auscultation bilaterally AUSCULTATION: clear to auscultation bilaterally Cardio: COMMON NORMALS: regular rate, regular rhythm, S1 normal heart sound present, S2 normal heart sound present, No gallops present (Cardio), No clicks present (Cardio), No murmurs present (Cardio) and No rub (Cardio) RATE: regular rate RHYTHM: regular rhythm HEART SOUNDS: S1 normal heart sound present and S2 normal heart sound present PERIPHERAL PULSES: radial pulses present positive right 2+ and femoral pulses present positive right 2+ Neuro: COMMON NORMALS: patient oriented x3 and moves all extremities SENSORIUM/ORIENTATION: Yes oriented to person, Yes oriented to place and Yes oriented to time Skin: WOUNDS: Yes surgical site (no hematoma palpable) Details: no odor Discharge Data Studies Completed and Pending Pending at discharge Category Date Time Status UNIFIED COMMUNICATIONS ENGINEER request for service Routine Exams 11/19/24 09:42 Taken Laboratory Results WBC 7.48 10^3/uL (3.29-11.43) 11/20/24 03:45 RBC 3.92 10^6/uL (3.85-5.65) 11/20/24 03:45 Hgb 10.30 g/dL (11.27-16.99) L 11/20/24 03:45 Hct 32.5 % (37-53) L 11/20/24 03:45 MCV 82.9 fl (82-101) 11/20/24 03:45 MCH 26.3 pg (27-33) L 11/20/24 03:45 MCHC 31.7 g/dL (30-55) 11/20/24 03:45 RDW 16.2 % (12.1-15.1) H 11/20/24 03:45 Plt Count 200 10^3/cmm (157-399) 11/20/24 03:45 MPV 10.0 fL (7.4-10.4) 11/20/24 03:45 Neut % (Auto) 72.4 % 11/20/24 03:45 Lymph % (Auto) 12.8 % 11/20/24 03:45 [place] % (Auto) 9.9 % 11/20/24 03:45 Eos % (Auto) 3.9 % 11/20/24 03:45 Baso % (Auto) 0.5 % 11/20/24 03:45 Neut # (Auto) 5.41 10^3/uL (1.8-7.7) 11/20/24 03:45 Lymph # (Auto) 1.0 10^3/uL (0.8-4.8) 11/20/24 03:45 [place] # (Auto) 0.7 10^3/uL (0.2-0.9) 11/20/24 03:45 Eos # (Auto) 0.3 10^3/uL (0.0-0.8) 11/20/24 03:45 Baso # (Auto) 0.0 10^3/uL (0.0-0.1) 11/20/24 03:45 Nucleated RBC % (auto) 0 % 11/20/24 03:45 Nucleated RBCs # 0.0 /100WBC 11/20/24 03:45 Sodium 131 mmol/L (136-145) L 11/20/24 03:45 Potassium 4.9 mmol/L (3.5-5.1) 11/20/24 03:45 Chloride 99 mmol/L (98-107) 11/20/24 03:45 Carbon Dioxide 21 mmol/L (22-29) L 11/20/24 03:45 Anion Gap 15.9 (5-19) 11/20/24 03:45 BUN 13 mg/dL (8-23) 11/20/24 03:45 Creatinine 1.2 mg/dL (0.7-1.2) 11/20/24 03:45 GFR Calculation Not Reportable 11/20/24 03:45 Glucose 118 mg/dL (65-115) H 11/20/24 03:45 Calculated Osmolality 273 mOsm/kg (285-295) L 11/20/24 03:45 Calcium 8.6 mg/dL (8.5-10.5) 11/20/24 03:45 Vitals Last Vital Signs Temp 98.0 F 11/20/24 00:00 Pulse 90 11/20/24 04:39 Resp 19 H 11/20/24 04:00 BP 139/85 11/20/24 04:00 Pulse Ox 97 11/20/24 04:00 O2 Del Method Room Air 11/20/24 04:00 Discharge Plan Discharge Patient Disposition: Home Prescriptions: New clopidogrel 75 mg Tablet 75 mg PO DAILY Qty: 90 3RF rivaroxaban [Xarelto] 2.5 mg tablet 2.5 mg PO BID Qty: 60 3RF Continued tamsulosin 0.4 mg capsule 0.4 mg PO DAILY furosemide [Lasix] 40 mg tablet 40 mg PO QAM carvedilol 12.5 mg tablet See Rx Instructions .ROUTE .COMPLEX Qty: 180 3RF Dose Instruction: TAKE 1 TABLET BY MOUTH TWICE DAILY Rx Instructions: TAKE 1 TABLET BY MOUTH TWICE DAILY alendronate 70 mg tablet See Rx Instructions .ROUTE .COMPLEX Qty: 12 3RF Dose Instruction: TAKE 1 TABLET BY MOUTH WEEKLY Rx Instructions: TAKE 1 TABLET BY MOUTH WEEKLY clonidine HCl 0.1 mg tablet 0.1 mg PO BID Qty: 60 11RF Discontinued aspirin 325 mg tablet 325 mg PO QAM Discharge Order = DC NOW: Discharge Order (Routine); Ordered 11/20/24 Ordered By: Yamilka Delvalle Referrals: Hemalatha Banerjee NP [Nurse Practitioner, Cardiology] - 11/26/24 1:00 pm Anand Geiger MD [Primary Care Provider, Family Practice] - 11/22/24 9:30 am Diet: Cardiac Activity: Increase activity as tolerated Patient Instructions: Peripheral Vascular Stent Placement (DC), Post Angiogram Home Care Instructions Activity Restrictions/Additional Instructions: No lifting over 5 pounds for the next 4 days. Print Language: Guinean Discharge Date/Time: 11/20/24 08:25 Discharge Attestations Time Spent in Discharge Care*: less than 30 min Quality Metrics Clinical Quality Measures [ No reported AMI, CVA or VTE this stay] Coding Level of Care Code Acute Code for Chg Fwdao
[2024-11-20 08:46] VITALS: BP 139/85
== END 2024-11-20 08:25 | disposition home or self-care (01) ==
LOC: CCL 08:51 → CSU 14:06
PROVIDERS: PCP Family Medicine; Visit Provider Internal Medicine Cardiovascular Disease
DX: I70.221 Atherosclerosis of native arteries of extremities with rest pain, right leg (principal); I74.5 Embolism and thrombosis of iliac artery; I74.3 Embolism and thrombosis of arteries of the lower extremities; I72.3 Aneurysm of iliac artery; E66.9 Obesity, unspecified; Z68.36 Body mass index [BMI] 36.0-36.9, adult; L97.518 Non-pressure chronic ulcer of other part of right foot with other specified severity; J44.9 Chronic obstructive pulmonary disease, unspecified; I48.91 Unspecified atrial fibrillation; M10.9 Gout, unspecified; E11.22 Type 2 diabetes mellitus with diabetic chronic kidney disease; I12.9 Hypertensive chronic kidney disease with stage 1 through stage 4 chronic kidney disease, or unspecified chronic kidney disease; N18.9 Chronic kidney disease, unspecified; K21.9 Gastro-esophageal reflux disease without esophagitis; E87.1 Hypo-osmolality and hyponatremia; Z87.891 Personal history of nicotine dependence
CPT/HCPCS: 36415; 75625; 75716; 80048; 85025; 85347; 96376; 99152; 99153; C1725; C1760; C1769; C1874; C1876; C1887; C1894; C9765; G0269; J1200; J1644; J2250; J3010; J7030; J9999; Q9967

== ENCOUNTER → 2024-11-26 12:46 | Outpatient (BNVA) | payer MEDICARE, BC, SELFPAY | PROVIDERS: PCP Family Medicine; Visit Provider Nurse Practitioner Family | DX: I73.9 Peripheral vascular disease, unspecified (principal); S91.102A Unspecified open wound of left great toe without damage to nail, initial encounter; Y99.9 Unspecified external cause status; I12.9 Hypertensive chronic kidney disease with stage 1 through stage 4 chronic kidney disease, or unspecified chronic kidney disease; N18.9 Chronic kidney disease, unspecified; E11.22 Type 2 diabetes mellitus with diabetic chronic kidney disease; I48.11 Longstanding persistent atrial fibrillation; Z79.01 Long term (current) use of anticoagulants; I87.2 Venous insufficiency (chronic) (peripheral); I70.0 Atherosclerosis of aorta; Z87.891 Personal history of nicotine dependence; I10 Essential (primary) hypertension | CPT/HCPCS: 36415; 80048; 85025; 99214 ==

== ENCOUNTER 2024-11-27 08:00 | Emergency (ER) | payer MEDICARE, BC, SELFPAY ==
--- OUTSIDE RECORDS SUMMARY | 2024-07-26 12:00 | XMS_ITS ---
Author Organization [facility] Address [address] [place] [address] Care Team Providers Care Senior Research Associate Name Role Phone Anand Geiger Primary Care Provider TIMOTHY Ann Unavailable [phone] Arnold Kang Unavailable [phone] REASON FOR VISIT 6 mo w ua/pvr/ipss Encounters Encounter Location Date Provider Diagnosis [facility] [address] [facility] [place] [address] 07/26/2024 Arnold Kang Plan Of Treatment No Information Progress Notes * Monty DANIELS WDOB:1950 (74 yo M)Acc No.[id number]:07/26/2024 Progress Notes Patient: Alexis VANEGAS Monty Allison Provider: Mirlande Kang APRN :1950 A ge:73 Y S ex:Male Date:07/26/2024 Address:[address] [place], [place] [id number] Pcp:Anand Geiger Subjective: * Chief Complaints: * 1 . 6 mo w ua/pvr/ipss. * Medical History: Objective: * Vitals: Assessment: Plan: * Treatment: * Billing Information: * Visit Code: * Procedure Codes: * Electronic signature of Parmjit Kang APRN on 11/27/2024 at 08:13 AM CDT Sign off status: Pending * Provider: Mirlande Kang APRN Date: 0 07/26/2024 Generated for Printi ng/Faolegg/eTransmitting on: 0 11/27/2024 08:13 AM CDT
--- NOTE | 2024-11-27 08:05 | XRR_ITS ---
PROCEDURE INFORMATION: Exam: XR Left Foot Exam date and time: 11/27/2024 8:10 AM Age: 74 years old Clinical indication: Pain; Foot and toes; Left; Lt big toe swelling and draining; Additional info: Pain L great toe TECHNIQUE: Imaging protocol: Radiologic exam of the left foot. Views: 3 or more views. COMPARISON: CT angio abd aorta runof [id number] 09/19/2024 3:21 PM FINDINGS: Bones/joints: There is no fracture or joint dislocation. Bony alignment is preserved. Calcaneal bony spurring. Soft tissues: Normal. Vasculature: Calcified atherosclerotic changes are seen. XR/XR foot LT min 3V* [id number] IMPRESSION: 1. No radiographic evidence to suggest osteomyelitis. If there is high clinical concern, MRI should be obtained for further evaluation. 2. Calcaneal bony spurring.
[2024-11-27 08:07] VITALS: BP 168/93; PULSE 85; RESP 18; TEMP 36.4; O2SAT 100; BMI 37.6
--- OUTSIDE RECORDS SUMMARY | 2024-11-27 08:13 | XMS_ITS | Clinical Summary ---
Author Organization [facility] Address [address] [place] [address] Phone Care Team Providers Care Financial Operations Analyst Name Role Phone Anand Geiger MD Primary Care Provider Allergies Active Allergy Reactions Criticality Noted Date Comments Fentanyl Anaphylaxis High 09/08/2023 Oxycodone Anaphylaxis High 09/08/2023 Medications aspirin (ECOTRIN EC) 325 mg Tablet, Delayed Release (E.C.) Take 325 mg by mouth daily. Active carvediloL (COREG) 12.5 mg tablet Take 12.5 mg by mouth 2 times daily with meals. Active cloNIDine HCL (CATAPRES) 0.1 mg tablet Take 0.1 mg by mouth 2 times daily. Active simvastatin (ZOCOR) 10 mg tablet Take 10 mg by mouth daily with supper. Active omeprazole (PriLOSEC) 20 mg Capsule, Delayed Release(E.C.) Take 20 mg by mouth daily. Active Active Problems Problem Noted Date Diagnosed Date Hyponatremia 09/08/2023 Hematuria 09/08/2023 Urinary retention 09/08/2023 Longstanding persistent atrial fibrillation 01/2024 Hypertension 09/08/2023 GERD (gastroesophageal reflux disease) Encounters Date Type Department Care Team Description 09/04/2024 External Device Data [facility] ABSTRACTION Provider, Abstract 08/28/2024 External Device Data [facility] ABSTRACTION Provider, Abstract 08/28/2024 External Device Data [facility] ABSTRACTION Provider, Abstract from Last 3 Months Social History Tobacco Use Types Packs/Day Years Used Date Smoking Tobacco: Former Cigarettes Alcohol Use Standard Drinks/Week Comments Not Currently 0 (1 standard drink = 0.6 oz pur e alcohol) Sex and Gender Information Value Date Recorded Sex Assigned at Not on file Legal Sex Male 2:52 PM CDT Gender Identity Not on file Sexual Orientation Not on file Last Filed Vital Signs Vital Sign Reading Time Taken Comments Blood Pressure 136/63 09/11/2023 11:25 AM CDT Pulse 70 09/11/2023 11:25 AM CDT Temperature 36.6 C (97.9 F) 09/11/2023 11:25 AM CDT Respiratory Rate 14 09/11/2023 11:2 5 AM CDT Oxygen Saturation 98% 09/11/2023 11: 25 AM CDT Inhaled Oxygen Concentration - - Weight 114.5 kg (252 lb 6.8 oz) 09/11/2023 4:25 AM CDT Height 180.3 cm (5' 11 ) 09/08/2023 8:19 PM CDT Body Mass Index 35.21 09/08/2023 8:19 PM CDT Plan of Treatment Health Maintenance Due Date Last Done Comments DTAP/TDAP/TD VACCINES (1 - Tdap) 11/16/1967 PNEUMOCOCCAL VACCINE 50+ YEARS (1 of 1 - PCV) 11/15/18 99 ZOSTER VACCINE (1 of 2) 1998 RSV VACCINE (60+ or ) (1 - 1-dose 75+ series) 11/16/2023 INFLUENZA VACCINE (#1) 2024 Insurance MEDICARE PART A AND B [facility] SUPP Advance Directives For more information, please contact: [phone] * Full Code (Latest Code Status on File) Date Activated Date Inactivated Comments 09/08/2023 9:53 PM 09/11/2023 4:55 PM Care Teams Financial Operations Analyst Relationship Specialty Start Date End Date Anand Geiger MD [address] [place] [address] PCP - General Family Practice 09/08/23
--- OUTSIDE RECORDS SUMMARY | 2024-11-27 08:13 | XMS_ITS | Patient Health Record ---
Author Organization [facility] Address [address] [place], [place] [address] Care Team Providers Care Mathematician Name Role Phone Anand Geiger MD Primary Care Provider Unavail able Andrey PUCKETT, Immanuel Unavailable [phone] Allergies Allergen (clinical drug ingredient) Drug/Non Drug Allergy documented on EMR Reaction Allergy Type Onset Date Status amlodipine Norvasc Unknown Drug Allergy Active Procardia CRITICAL Drug Allergy Active nifedipine nifedipine CRITICAL Drug Allergy Activ e hydralazine Unknown Drug Allergy Activ e Reason For Referral No Information Medications Medication SIG (Take, Route, Fr equency, Duration) Notes Start Date End Date Status aspirin buffered 325 mg 1 tab orally once a day Active simvastatin 10 mg 1 tab orally once a day Active cloNIDine 0.1 mg 1 tab orally 2 times a day Active lisinopril 40 mg 1 tab orally once a day Active omeprazole 20 mg 1 tab orally once a day Active carvedilol 25 mg 1 tab orally 2 times a day Active furosemide 20 mg 1 tab orally once a day Active Problems Problem Type SNOMED Code ICD Code Onset Dates Problem Status W/U Status Risk Notes Problem Low back pain (619367477) Low back pain (M54.5) Active confirmed Problem Displacement of lumbar intervertebral disc without myelopathy (17269983) Other intervertebral disc displacement, lumbar region (M51.26) Active confirmed Problem Lumbosacral spondylosis without myelopathy (24655390) Spondylosis without myelopathy or radiculopathy, lumbar region (M47.816) Active confirmed Problem Anxiety disorder (377930172) Other specified anxiety disorders (F41.8) Active confirmed Problem Hypersomnia (54114043) Hypersomnia, unspecified (G47.10) Active confirmed Problem Spinal stenosis of lumbar region (02688228) Spinal stenosis, lumbar region (M48.06) Active confirmed Problem Long-term current use of drug therapy (703722367) Other longitudinal float operator (current) drug therapy (Z79.899) Active confirmed Plan Of Treatment No Information Insurance Providers Payer Name Payer Address Payer Phone Subscriber Number Group Number Insured Name Patient Relationship to Insured Coverage Start Date Coverage End Date WPS Medicare Part B Claims Department [address] [address] [place] [address] [id number] Monty Christopher Self - patient is the insured [facility] [address] [place] [address] [id number] Monty Christopher Self - patient is the insured Medical (General) History Medical History History ICD Code Hypertension Hyperlipidemia Chronic obstructive pulmonary disease GERD Anterior cerebral atherosclerosis Chronic back pain Surgical History Surgery Date(Month/Year) Appendix -- Juan Antonio [address] 2008 Hospitalization History Reason Date(Month/Year) [facility] 1989
--- OUTSIDE RECORDS SUMMARY | 2024-11-27 08:13 | XMS_ITS | Patient Health Record ---
Author Organization [employer] [employer] Address [address] [place] [place] [address] Care Team Providers Care Tv Host Name Role Phone Anand Geiger Primary Care Provider TIMOTHY Ann Unavailable [phone] Arnold Kang Unavailable [phone] Allergies Allergen (clinical drug ingredient) Drug/Non Drug Allergy documented on EMR Reaction Allergy Type Onset Date Status fentanyl Fentanyl Unknown Drug Allergy Active oxycodone Oxycodone Unknown Drug Allergy Active Results Component Value Reference Range Notes US Renal w/bladder--76354 Reviewed date:01/12/2024 04:07:48 PM Interpretation: Performing Lab: Notes/Report: See Below For Report US Renal w/bladder Read See Below For Report Reason For Referral No Information Medications Medication SIG (Take, Route, Fr equency, Duration) Notes Start Date End Date Status Tamsulosin HCl 0.4 MG 1 capsule Orally O nce a day for 90 days 01/12/2024 01/06/2025 Active Omeprazole 10 MG 1 capsule 30 minutes before morning meal Orally Once a day Active Tamsulosin HCl 0.4 MG TAKE 1 CAPSULE BY MOUTH DAILY for 30 Active cloNIDine HCl 0.1 MG 1 tablet Orally Once a day Active Carvedilol 25 MG 1 tablet with food O rally Twice a day Active Aspirin 325 MG 1 tablet Orally Once a day Active Social History Tobacco Use: Social History Observation Description Date Details (start date - stop date) Former Smoker NA - NA Tobacco Control (Standard) Question Answer Notes Tobacco use: Former smoker How long has it been since you last smoked? Grea ter than 10 years Problems Problem Type SNOMED Code ICD Code Onset Dates Problem Status W/U Status Risk Notes Problem Lower urinary tract symptoms due to benign prostatic hypertrophy (62496725492688) Benign prostatic hyperplasia with lower urinary tract symptoms (N40.1) Active confirmed Problem History of gross hematuria (Z87.448) Active confirmed Problem History of urinary tract infection (8446425842939) History of UTI (Z87.440) Active confirmed Problem Acute urinary retention (830603501) Acute urinary retention (R33.8) Active confirmed Vital Signs Heart Rate 69 /min 01/12/2024 Temperature 97.9 degrees Fahrenheit 01/12/2024 Blood pressure diastolic 79 mm Hg 01/12/2024 Height-cm 180.34 cm 01/12/2024 Weight-kg 113.4 kg 01/12/2024 Height 71 in 01/12/2024 Blood pressure systolic 144 mm Hg 01/12/2024 Weight 250 lbs 01/12/2024 BMI 34.86 kg/m2 01/12/2024 Procedures Procedure Date Ordered Date Performed Result Body Sit e UroFlow 01/12/2024 N/A Bladder Scan 01/12/2024 01/12/2024 N/A Encounters Encounter Location Date Provider Diagnosis [facility] [address] [address] 01/12/2024 [facility] Benign prostatic hyperplasia with lower urinary tract symptoms N40.1 ; Incomplete bladder emptying R33.9 ; Nocturia R35.1 and Noncompliance by refusing intervention or support Z53.29 [facility] [address] [address] 01/12/2024 [facility] [address] [address] 01/12/2024 [facility] Assessments Encounter Date Diagnosis (ICD Code) Assessment Notes Treatment Notes Treatment Clinical Notes Section Notes 01/12/2024 Benign prostatic hyperplasia with lower urinary tract symptoms (ICD-10 - N40.1) 73 y/o M with OAB/LUTS and incomplete emptying PVR 636ml today. Pt is aware of risks of bladder failure with high PVR and defers Nelson or CIC. He wants to continue surveillance and tamsulosin at this time. He will return in 6 months for symptom reassessment with UA/PVR with Jose Cruz Kang APRN or sooner with any concerns Plan -Continue tamsulosin -RTC in 6months with UA/PVR -RTC or call sooner with any concerns Urszula Nelson Scribe am scribing for, and in the presence of, Dr. Noel. I, Dr. Timothy Noel, personally performed the services prescribed in this documentation, as scribed by Urszula Owen, in my presence, and it is both accurate and complete. 01/12/2024 Incomplete bladder emptying (ICD-10 - R33.9) 73 y/o M with OAB/LUTS and incomplete emptying PVR 636ml today. Pt is aware of risks of bladder failure with high PVR and defers Nelson or CIC. He wants to continue surveillance and tamsulosin at this time. He will return in 6 months for symptom reassessment with UA/PVR with D. Pevril, ASSISTANT DEAN or sooner with any concerns Plan -Continue tamsulosin -RTC in 6months with UA/PVR -RTC or call sooner with any concerns Urszula Nelson Scribe am scribing for, and in the presence of, Dr. Noel. I, Dr. Timothy Noel, personally performed the services prescribed in this documentation, as scribed by Urszula Owen, in my presence, and it is both accurate and complete. 01/12/2024 Nocturia (ICD-10 - R35.1) 73 y/o M with OAB/LUTS and incomplete emptying PVR 636ml today. Pt is aware of risks of bladder failure with high PVR and defers Nelson or CIC. He wants to continue surveillance and tamsulosin at this time. He will return in 6 months for symptom reassessment with UA/PVR with D. Pevril, ASSISTANT DEAN or sooner with any concerns Plan -Continue tamsulosin -RTC in 6months with UA/PVR -RTC or call sooner with any concerns Urszula Nelson Scribe am scribing for, and in the presence of, Dr. Noel. I, Dr. Timothy Noel, personally performed the services prescribed in this documentation, as scribed by Urszula Owen, in my presence, and it is both accurate and complete. 01/12/2024 Noncompliance by refusing intervention or support (ICD-10 - Z53.29) 73 y/o M with OAB/LUTS and incomplete emptying PVR 636ml today. Pt is aware of risks of bladder failure with high PVR and defers Nelson or CIC. He wants to continue surveillance and tamsulosin at this time. He will return in 6 months for symptom reassessment with UA/PVR with Jose Cruz Kang APRN or sooner with any concerns Plan -Continue tamsulosin -RTC in 6months with UA/PVR -RTC or call sooner with any concerns IUrszula Scribe, am scribing for, and in the presence of, Dr. Noel. I, Dr. Timothy Noel, personally performed the services prescribed in this documentation, as scribed by Urszula Owen, in my presence, and it is both accurate and complete. Plan Of Treatment Pending Test Test Name Order Date Urinalysis, Routine 10/13/2023 Ultrasound : Kidneys and Bladder 024 Bladder Scan 10/13/2023 UroFlow 01/12/2024 Future Test Test Name Order Date Ultrasound : Kidneys and Bladder 024 Insurance Providers Payer Name Payer Address Payer Phone Subscriber Number Group Number Insured Name Patient Relationship to Insured Coverage Start Date Coverage End Date [place] Medicare [address] [place] MESSINA [id number] Monty Christopher Self - [facility] is the [facility] [address] [place], [place] [phone] [id number] Monty Christopher Self - patient is the insured Medical (General) History Medical History History ICD Code arthritis HTN COPD ED Surgical History Surgery Date(Month/Year) appendectomy Hospitalization History Reason Date(Month/Year) Low sodium/urinary retention - [facility] 09/08/23-09/09 blood in urine
[2024-11-27 08:16] LABS: Hematocrit 34.4 % (37-53); Hemoglobin 10.60 g/dL (11.27-16.99); Mean Corpuscular HGB Conc 30.8 g/dL (30-55); Mean Corpuscular Hemoglobin 25.6 pg (27-33); Mean Corpuscular Volume 83.1 fl (82-101); Nucleated Red Blood Cells % 0 %; Platelet Count 211 10^3/cmm (157-399); Red Blood Count 4.14 10^6/uL (3.85-5.65); White Blood Count 7.06 10^3/uL (3.29-11.43)
[2024-11-27 08:17] VITALS: BP 169/93; PULSE 83; RESP 16; O2SAT 100
--- NOTE | 2024-11-27 08:31 | W.ED.SKABFB ---
HPI - Skin/Abscess/Foreign Bdy General: Chief complaint: Skin/Abscess/Foreign Body Stated complaint: L big toe swelling, pain Time Seen by Provider: 11/27/24 08:05 History of Present Illness: 74-year-old male presents emergency room left great toe swelling and discomfort. Patient has a history of peripheral vascular he had stenting earlier this year. He wears compression stocks for couple days at a time and went to take his compression up his left foot he had some blistering and denuded the blisters particular the dorsum of the toe. This moderately tender. He has not had any fever sweats chills no purulent drainage Associated symptoms: Deny chills or fever(s) Related Data Home Medications ?Medication ?Instructions ?Recorded ?Confirmed tamsulosin 0.4 mg capsule 0.4 mg PO DAILY 09/29/23 11/26/24 furosemide 40 mg tablet (Lasix) 40 mg PO QAM 06/21/24 11/26/24 Previous Rx's ?Medication ?Instructions ?Recorded carvedilol 12.5 mg tablet See Rx Instructions .Route 10/15/24 .COMPLEX #180 tabs alendronate 70 mg tablet See Rx Instructions .Route 11/09/24 .COMPLEX #12 tabs clonidine HCl 0.1 mg tablet 0.1 mg PO BID #60 tabs 11/12/24 clopidogrel 75 mg tablet 75 mg PO DAILY #90 tabs 11/20/24 rivaroxaban 2.5 mg tablet (Xarelto) 2.5 mg PO BID #60 tabs 11/20/24 cephalexin 750 mg capsule 750 mg PO BID 7 days #14 caps 11/27/24 furosemide 80 mg tablet (Lasix) 80 mg PO DAILY #30 tabs 11/27/24 mupirocin 2 % topical ointment 1 applic topical BID #22 grams 11/27/24 (Centany) Allergies Allergy/AdvReac Type Severity Reaction Status Date / Time oxycodone Allergy ADR-Itching Verified 11/27/24 08:56 fentanyl AdvReac Intermediate made him Verified 11/27/24 08:56 paranoid Review of Systems Const: Denies: fever(s) or chills Card: Denies: chest pain Resp: Denies: dyspnea GI: Denies: abdominal pain : Denies: dysuria, urinary frequency or urinary urgency Musc: Denies: neck pain or back pain Skin/Breast: Denies: rash PFSH ED PFSH: Medical History PAD (peripheral artery disease) Subchondral sclerosis Longstanding persistent atrial fibrillation Lumbar spinal stenosis Hyponatremia This has been chronic for several years. Made worse by diuretics. Negative work-up otherwise Gout Chronic kidney disease (CKD) Primary hypertension Diabetes mellitus type 2, controlled COPD (chronic obstructive pulmonary disease) GERD (gastroesophageal reflux disease) Social History Smoking and tobacco/nicotine status: former use of tobacco/nicotine (last use ) Physical Exam Const: COMMON NORMALS: no acute distress GENERAL APPEARANCE: cooperative and comfortable ORIENTATION/CONSCIOUSNESS: Yes awake, Yes oriented to person, Yes oriented to place and Yes oriented to time HENMT: COMMON NORMALS: normocephalic, atraumatic and hearing grossly normal bilaterally HEAD & SCALP: normocephalic and atraumatic Resp: COMMON NORMALS: normal respiratory effort, No retractions, No use of accessory muscles and clear to auscultation bilaterally AUSCULTATION: clear to auscultation bilaterally Cardio: COMMON NORMALS: regular rate, regular rhythm and No murmurs present (Cardio) RATE: regular rate RHYTHM: regular rhythm GI: COMMON NORMALS: Soft to palpation and No hepatosplenomegaly present AUSCULTATION: Yes normoactive bowel sounds PALPATION: Yes Soft to palpation, No Tenderness to palpation present (GI), No Guarding due to palpation present (GI) and Yes No hepatosplenomegaly present Extremity: COMMON NORMALS: normal to inspection, capillary refill normal, no clubbing, cyanosis or edema, no calf tenderness and no pedal edema OTHER: Neuro: SENSORIUM/ORIENTATION: Yes oriented to person, Yes oriented to place and Yes oriented to time Skin: COMMON NORMALS: no rashes or lesions noted GENERAL SKIN EXAM: no rashes or lesions noted Course Vital Signs: Vital signs: Vital Signs Temperature 97.6 F 11/27/24 08:07 Pulse Rate 75 11/27/24 09:43 Respiratory Rate 16 11/27/24 09:43 Blood Pressure 126/77 11/27/24 09:43 Pulse Oximetry 97 11/27/24 09:43 Oxygen Delivery Me thod Room Air 11/27/24 09:05 MDM - Skin/Abscess/Foreign Bdy Medicial Decision Making No signs of osteomyelitis. X-ray does not show any bone deterioration no leukocytosis sed rate mildly elevated will start on cephalexin apply topical antibiotic ointment to the wound. Set him up for an outpatient arterial Doppler of the lower extremities and follow-up at wound care clinic Lab Data 11/27/24 08:10 11/27/24 08:10 Radiology Impressions Foot X-Ray 11/27/24 08:05 IMPRESSION: 1. No radiographic evidence to suggest osteomyelitis. If there is high clinical concern, MRI should be obtained for further evaluation. 2. Calcaneal bony spurring. Laboratory Results WBC 7.06 10^3/uL (3.29-11.43) 11/27/24 08:10 RBC 4.14 10^6/uL (3.85-5.65) 11/27/24 08:10 Hgb 10.60 g/dL (11.27-16.99) L 11/27/24 08:10 Hct 34.4 % (37-53) L 11/27/24 08:10 MCV 83.1 fl (82-101) 11/27/24 08:10 MCH 25.6 pg (27-33) L 11/27/24 08:10 MCHC 30.8 g/dL (30-55) 11/27/24 08:10 RDW 16.4 % (12.1-15.1) H 11/27/24 08:10 Plt Count 211 10^3/cmm (157-399) 11/27/24 08:10 MPV 10.0 fL (7.4-10.4) 11/27/24 08:10 Neut % (Auto) 64.6 % 11/27/24 08:10 Lymph % (Auto) 21.1 % 11/27/24 08:10 [place] % (Auto) 10.5 % 11/27/24 08:10 Eos % (Auto) 2.8 % 11/27/24 08:10 Baso % (Auto) 0.4 % 11/27/24 08:10 Neut # (Auto) 4.56 10^3/uL (1.8-7.7) 11/27/24 08:10 Lymph # (Auto) 1.5 10^3/uL (0.8-4.8) 11/27/24 08:10 [place] # (Auto) 0.7 10^3/uL (0.2-0.9) 11/27/24 08:10 Eos # (Auto) 0.2 10^3/uL (0.0-0.8) 11/27/24 08:10 Baso # (Auto) 0.0 10^3/uL (0.0-0.1) 11/27/24 08:10 Nucleated RBC % (auto) 0 % 11/27/24 08:10 Nucleated RBCs # 0.0 /100WBC 11/27/24 08:10 ESR 59 mm/hr (0-10) H 11/27/24 08:10 Sodium 132 mmol/L (136-145) L 11/27/24 08:10 Potassium 4.6 mmol/L (3.5-5.1) 11/27/24 08:10 Chloride 97 mmol/L (98-107) L 11/27/24 08:10 Carbon Dioxide 19 mmol/L (22-29) L 11/27/24 08:10 Anion Gap 20.6 (5-19) H 11/27/24 08:10 BUN 12 mg/dL (8-23) 11/27/24 08:10 Creatinine 1.1 mg/dL (0.7-1.2) 11/27/24 08:10 GFR Calculation Not Reportable 11/27/24 08:10 Glucose 133 mg/dL (65-115) H 11/27/24 08:10 Calculated Osmolality 276 mOsm/kg (285-295) L 11/27/24 08:10 Calcium 8.4 mg/dL (8.5-10.5) L 11/27/24 08:10 Total Bilirubin 0.8 mg/dL (0.15-1.2) 11/27/24 08:10 AST 26 U/L (0-40) 11/27/24 08:10 ALT 11 U/L (0-41) 11/27/24 08:10 Alkaline Phosphatase 96 U/L (40-130) 11/27/24 08:10 Total Protein 7.4 g/dL (6.6-8.7) 11/27/24 08:10 Albumin 3.7 g/dL (3.5-5.2) 11/27/24 08:10 Globulin 3.7 g/dL (1.3-4.6) 11/27/24 08:10 All radiology interpretation(s) finalized by discharge Discharge Plan Discharge Patient Disposition: Home Clinical Impression: Cellulitis Condition: Stable Prescriptions: New cephalexin 750 mg capsule 750 mg PO BID 7 Days Qty: 14 0RF mupirocin [Centany] 2 % ointment 1 applic topical BID Qty: 22 0RF furosemide [Lasix] 80 mg tablet 80 mg PO DAILY Qty: 30 0RF No Action tamsulosin 0.4 mg capsule 0.4 mg PO DAILY furosemide [Lasix] 40 mg tablet 40 mg PO QAM carvedilol 12.5 mg tablet See Rx Instructions .ROUTE .COMPLEX Qty: 180 3RF Dose Instruction: TAKE 1 TABLET BY MOUTH TWICE DAILY Rx Instructions: TAKE 1 TABLET BY MOUTH TWICE DAILY alendronate 70 mg tablet See Rx Instructions .ROUTE .COMPLEX Qty: 12 3RF Dose Instruction: TAKE 1 TABLET BY MOUTH WEEKLY Rx Instructions: TAKE 1 TABLET BY MOUTH WEEKLY clonidine HCl 0.1 mg tablet 0.1 mg PO BID Qty: 60 11RF clopidogrel 75 mg Tablet 75 mg PO DAILY Qty: 90 3RF rivaroxaban [Xarelto] 2.5 mg tablet 2.5 mg PO BID Qty: 60 3RF Discharge Orders: Discharge ED (Routine); Ordered 11/27/24 Ordered By: Ortega Garcia Referrals: Anand Geiger MD [Primary Care Provider, Family Practice] Discharge Diet: Usual diet Discharge Activity: Limit activity as instructed Patient Instructions: Opioid Safety, Pain Management, Patient Portal & Alejandra Instructions Activity Restrictions/Additional Instructions: Thank you for choosing [facility] for your healthcare needs today. It is very important that you follow up as instructed or that you return to the Emergency Department should you have concerns or if your condition changes or worsens in any way. You were seen in the emergency room with complaints of a injury to your great toe. X-ray does not show any acute abnormality. Recommend applying topical antibiotic ointment to the wound twice a day. We also start you on oral antibiotics. Will set you up for outpatient ultrasound of your leg to evaluate blood flow and an appointment with the wound care clinic. I will allow him I called him call with an admit and avoid wearing the compression stockings at this time. Will increase your Lasix to 80 mg daily. Print Language: Cymro Coding Level of Care Code ED Roll Dough Divider for Clyde Perla
[2024-11-27 08:48] LABS: Alanine Aminotransferase 11 U/L (0-41); Albumin Level 3.7 g/dL (3.5-5.2); Alkaline Phosphatase 96 U/L (40-130); Anion Gap 20.6 (5-19); Aspartate Amino Transferase 26 U/L (0-40); Blood Urea Nitrogen 12 mg/dL (8-23); Calcium 8.4 mg/dL (8.5-10.5); Carbon Dioxide 19 mmol/L (22-29); Chloride 97 mmol/L (98-107); Creatinine Clr Calc Pharmacy 76.0954; Globulin 3.7 g/dL (1.3-4.6); Glucose 133 mg/dL (65-115); Osmolality Calculated 276 mOsm/kg (285-295); Potassium 4.6 mmol/L (3.5-5.1); Sodium 132 mmol/L (136-145); Total Protein 7.4 g/dL (6.6-8.7)
[2024-11-27 09:05] VITALS: BP 169/93; PULSE 79; RESP 16; O2SAT 96
[2024-11-27 09:43] VITALS: BP 126/77; PULSE 75; RESP 16; O2SAT 97
[2024-11-27] MEDS: mupirocin oint 22 gm 1 APPLIC TOPICAL (10:02)
--- NOTE | 2024-11-28 15:14 | PC.SOCIAL ---
Wound Care Referral Referral Message sent to wound clinic at this time. Clinic to contact patient with appt date/time.
== END 2024-11-27 10:02 | disposition home or self-care (01) ==
PROVIDERS: Emergency Provider Family Medicine; PCP Family Medicine
DX: L03.032 Cellulitis of left toe (principal); Z79.02 Long term (current) use of antithrombotics/antiplatelets; J44.9 Chronic obstructive pulmonary disease, unspecified; E11.22 Type 2 diabetes mellitus with diabetic chronic kidney disease; I12.9 Hypertensive chronic kidney disease with stage 1 through stage 4 chronic kidney disease, or unspecified chronic kidney disease; N18.9 Chronic kidney disease, unspecified; Z87.891 Personal history of nicotine dependence
CPT/HCPCS: 36415; 73630; 80053; 85025; 85651; 99284; J9999

== ENCOUNTER → 2024-12-05 08:34 | Outpatient (BNVA) | payer MEDICARE, BC, SELFPAY | PROVIDERS: PCP Family Medicine; Visit Provider Podiatrist Foot & Ankle Surgery | DX: M79.672 Pain in left foot (principal); E11.621 Type 2 diabetes mellitus with foot ulcer; L97.522 Non-pressure chronic ulcer of other part of left foot with fat layer exposed; B35.1 Tinea unguium; I73.9 Peripheral vascular disease, unspecified; L84 Corns and callosities | CPT/HCPCS: 11042; 73630; 99214 ==

== ENCOUNTER 2024-12-11 12:29 | Outpatient (CLI) | payer MEDICARE, BC, SELFPAY ==
--- NOTE | 2024-12-11 12:36 | USR_ITS ---
PROCEDURE INFORMATION: Exam: US Duplex Bilateral Lower Extremity Arteries Exam date and time: 12/11/2024 1:15 PM Age: 74 years old Clinical indication: Pain; Leg, lower; Bilateral; Additional info: Peripheral artery dz TECHNIQUE: Imaging protocol: Real-time ultrasound scan of the arteries of the bilateral lower extremities with 2-D landers scale, color Doppler flow and spectral waveform analysis. Images documented and saved. COMPARISON: CT angio abd aorta runof [id number] 09/19/2024 3:21 PM FINDINGS: Right common femoral artery: No occlusion or significant stenosis. Monophasic waveform. There is diastolic flow. PSV 115 cm/sec Right superficial femoral artery: No occlusion or significant stenosis. Monophasic waveform. PSV 181 cm/sec Right popliteal artery: No occlusion or significant stenosis. Monophasic waveform. PSV 65 cm/sec Right calf/foot arteries: No occlusion or significant stenosis in the visualized arteries. Normal waveforms. Dorsalis pedis artery is patent. Right TAZ: 0.82 [id number] peripheral artery disease Left common femoral artery: No occlusion or significant stenosis. Monophasic waveform. PSV 186 cm/sec Left superficial femoral artery: No occlusion or significant stenosis. Monophasic waveform. Left popliteal artery: No occlusion or significant stenosis. Monophasic waveform. PSV 86 cm/sec [id number] peripheral artery disease Left calf/foot arteries: No occlusion or significant stenosis in the visualized arteries. Normal waveforms. Dorsalis pedis artery is patent. Left TAZ: 0.68 severe peripheral arterial disease US/CV arterial duplex [facility] [id number] IMPRESSION: 1. Right leg [id number] peripheral arterial disease. 2. Left leg severe peripheral arterial disease
== END 2024-12-11 12:30 | disposition home or self-care (01) ==
LOC: RAD 12:30
PROVIDERS: PCP Family Medicine; Visit Provider Family Medicine
DX: I70.211 Atherosclerosis of native arteries of extremities with intermittent claudication, right leg (principal); I70.202 Unspecified atherosclerosis of native arteries of extremities, left leg
CPT/HCPCS: 93925

== ENCOUNTER → 2024-12-12 08:52 | Outpatient (BNVA) | payer MEDICARE, BC, SELFPAY | PROVIDERS: PCP Family Medicine; Visit Provider Podiatrist Foot & Ankle Surgery | DX: I73.9 Peripheral vascular disease, unspecified (principal); E11.621 Type 2 diabetes mellitus with foot ulcer; L97.528 Non-pressure chronic ulcer of other part of left foot with other specified severity; B35.1 Tinea unguium; M79.671 Pain in right foot; M79.672 Pain in left foot; L84 Corns and callosities | CPT/HCPCS: 99214 ==

== ENCOUNTER → 2024-12-19 07:08 | Outpatient (BNVA) | payer MEDICARE, BC, SELFPAY | PROVIDERS: PCP Family Medicine; Visit Provider Podiatrist Foot & Ankle Surgery | DX: E11.621 Type 2 diabetes mellitus with foot ulcer (principal); I73.9 Peripheral vascular disease, unspecified; L97.528 Non-pressure chronic ulcer of other part of left foot with other specified severity | CPT/HCPCS: 99214 ==

== ENCOUNTER 2024-12-19 10:02 | Inpatient (IN) | payer MEDICARE, BC, SELFPAY ==
--- OUTSIDE RECORDS SUMMARY | 2024-07-26 12:00 | XMS_ITS ---
Author Organization [facility] Address [address] [place] [address] Care Team Providers Care Diagrammer Name Role Phone Anand Geiger Primary Care Provider TIMOTHY Ann Unavailable [phone] Arnold Kang Unavailable [phone] REASON FOR VISIT 6 mo w ua/pvr/ipss Encounters Encounter Location Date Provider Diagnosis [facility] [address] [place] [facility] [place] [address] 07/26/2024 Arnold Kang Plan Of Treatment No Information Progress Notes * Monty DANIELS WDOB:1950 (74 yo M)Acc No.[id number]:07/26/2024 Progress Notes Patient: Alexis VANEGAS Monty Allison Provider: Mirlande Kang APRN :1950 A ge:73 Y S ex:Male Date:07/26/2024 Address:[address] [place], [place] [id number] Pcp:Anand Geiger Subjective: * Chief Complaints: * 1 . 6 mo w ua/pvr/ipss. * Medical History: Objective: * Vitals: Assessment: Plan: * Treatment: * Billing Information: * Visit Code: * Procedure Codes: * Electronic signature of Parmjit Kang APRN on 12/19/2024 at 10:25 AM CDT Sign off status: Pending * Provider: Mirlande Kang APRN Date: 0 07/26/2024 Generated for Printi ng/Faxing/eTransmitting on: 0 12/19/2024 10:25 AM CDT
[2024-12-19] VITALS (7 sets, daily range): BP systolic 105–160; BP diastolic 63–97; PULSE 85–104; RESP 16–20; TEMP 36.6–37.1; O2SAT 97–99; BMI 37.3
--- OUTSIDE RECORDS SUMMARY | 2024-12-19 10:25 | XMS_ITS | Patient Health Record ---
Author Organization [facility] Address [address] [place] [address] Care Team Providers Care Lvn Home Health Name Role Phone Anand Geiger Primary Care Provider TIMOTHY Ann Unavailable [phone] Arnold Kang Unavailable [phone] Allergies Allergen (clinical drug ingredient) Drug/Non Drug Allergy documented on EMR Reaction Allergy Type Onset Date Status fentanyl Fentanyl Unknown Drug Allergy Active oxycodone Oxycodone Unknown Drug Allergy Active Results Component Value Reference Range Notes US Renal w/bladder--[id number] Reviewed date:01/12/2024 04:07:48 PM Interpretation: Performing Lab: Notes/Report: See Below For Report US Renal w/bladder Read See Below For Report Reason For Referral No Information Medications Medication SIG (Take, Route, Fr equency, Duration) Notes Start Date End Date Status Tamsulosin HCl 0.4 MG 1 capsule Orally O nce a day; Duration: 90 days 01/12/2024 01/06/2025 Active Omeprazole 10 MG 1 capsule 30 minutes before morning meal Orally Once a day Active Tamsulosin HCl 0.4 MG TAKE 1 CAPSULE BY MOUTH DAILY; Duration: 30 Active cloNIDine HCl 0.1 MG 1 [...] tract symptoms due to benign prostatic hypertrophy (49216206600113) Benign prostatic hyperplasia with lower urinary tract symptoms (N40.1) Active confirmed Problem History of gross hematuria (Z87.448) Active confirmed Problem History of urinary tract infection (2673212783705) History of UTI (Z87.440) Active confirmed Problem Acute urinary retention (436202309) Acute urinary retention (R33.8) Active confirmed Vital Signs Heart Rate 69 /min 01/12/2024 Temperature 97.9 degrees Fahrenheit 01/12/2024 Height-cm 180.34 cm 01/12/2024 Blood pressure diastolic 79 mm Hg 01/12/2024 Weight-kg 113.4 kg 01/12/2024 Height 71 in 01/12/2024 Blood pressure systolic 144 mm Hg 01/12/2024 Weight 250 lbs 01/12/2024 BMI 34.86 kg/m2 01/12/2024 Procedures Procedure Date Ordered Date Performed Result Body Sit e UroFlow 01/12/2024 N/A Bladder Scan 01/12/2024 01/12/2024 N/A Encounters Encounter Location Date Provider Diagnosis [facility] [address] [address] 01/12/2024 [facility] Benign prostatic hyperplasia with lower urinary tract symptoms N40.1 ; Incomplete bladder emptying R33.9 ; Nocturia R35.1 and Noncompliance by refusing intervention or support Z53.29 [facility] [address] [address] 01/12/2024 [facility] [address] [address] 01/12/2024 [facility] Assessments Encounter Date Diagnosis (ICD Code) Assessment [...] symptom reassessment with UA/PVR with D. Pevril, MANDOLIN REPAIR PERSON or sooner with any concerns Plan -Continue [...] symptom reassessment with UA/PVR with D. Pevril, MANDOLIN REPAIR PERSON or sooner with any concerns Plan -Continue tamsulosin -RTC in 6months with UA/PVR -RTC or call sooner with any concerns Urszula Nelson Scribe, am scribing for, and in the [...] Routine 10/13/2023 Ultrasound : Kidneys and Bladder Bladder Scan 10/13/2023 UroFlow 01/12/2024 Future Test Test Name Order Date Ultrasound : Kidneys and Bladder 024 Insurance Providers Payer Name Payer Address Payer Phone Subscriber Number Group Number Insured Name Patient Relationship to Insured Coverage Start Date Coverage End Date [place] [address] CLARITZA OZZY MESSINA [id number] [phone] [id number] Monty Daniels Self - patient is the insured [facility] [address] [place], [place] [id number] Monty Daniels Self - patient is the insured Medical (General) History Medical History History ICD Code arthritis HTN COPD ED Surgical History Surgery Date(Month/Year) appendectomy Hospitalization History Reason Date(Month/Year) Low sodium/urinary retention - [facility] 09/08/23-09/09 blood in urine
--- OUTSIDE RECORDS SUMMARY | 2024-12-19 10:25 | XMS_ITS | Clinical Summary ---
Author Organization [facility] Address [address] [place] [address] Phone Care Team Providers Care Sliver Former Name Role Phone Anand Geiger MD Primary Care Provider [phone] Allergies Active Allergy Reactions Criticality Noted Date [...] 01/2024 Hypertension 09/08/2023 GERD (gastroesophageal reflux disease) Social History Tobacco Use Types Packs/Day Years [...] 2024 Insurance MEDICARE PART A AND B [facility] SUPP Advance Directives For more information, please contact: [phone] * Full Code (Latest Code Status on File) Date Activated Date Inactivated Comments 09/08/2023 9:53 PM 09/11/2023 4:55 PM Care Teams Sliver Former Relationship Specialty Start Date End Date Anand Geiger MD [address] [place] [phone] PCP - General Family Practice 09/08/23
--- OUTSIDE RECORDS SUMMARY | 2024-12-19 10:25 | XMS_ITS | Patient Health Record ---
Author Organization [facility] [employer] Address [address] [place], [place] [id number] Care Team Providers Care Steel Pourer Helper Name Role Phone Anand Geiger MD Primary Care Provider Unavail able Andrey PUCKETT, Immanuel Unavailable [phone] Allergies Allergen (clinical drug ingredient) Drug/Non Drug [...] Status Risk Notes Problem Low back pain (689941854) Low back pain (M54.5) Active confirmed Problem Displacement of lumbar intervertebral disc without myelopathy (67034363) Other intervertebral disc displacement, lumbar region (M51.26) Active confirmed Problem Lumbosacral spondylosis without myelopathy (21515446) Spondylosis without myelopathy or radiculopathy, lumbar region (M47.816) Active confirmed Problem Anxiety disorder (809198749) Other specified anxiety disorders (F41.8) Active confirmed Problem Hypersomnia (45139027) Hypersomnia, unspecified (G47.10) Active confirmed Problem Spinal stenosis of lumbar region (07820609) Spinal stenosis, lumbar region (M48.06) Active confirmed Problem Long-term current use of drug therapy (065746906) Other alf (current) drug therapy (Z79.899) Active confirmed Plan Of Treatment No Information Insurance Providers Payer Name Payer Address Payer Phone Subscriber Number Group Number Insured Name Patient Relationship to Insured Coverage Start Date Coverage End Date [employer] Medicare Part B Claims Department [address] [address] [place] [address] [id number] Monty Christopher Self - patient is the insured [facility] [address] [place] [address] [id number] Monty Christopher Self - patient is the insured Medical (General) History Medical History History ICD Code Hypertension Hyperlipidemia Chronic obstructive pulmonary disease GERD Anterior cerebral atherosclerosis Chronic back pain Surgical History Surgery Date(Month/Year) Appendix -- Juan Antonio [address] 2008 Hospitalization History Reason Date(Month/Year) [facility] 1989
[2024-12-19 11:22] LABS: Hematocrit 31.6 % (37-53); Hemoglobin 10.00 g/dL (11.27-16.99); Mean Corpuscular HGB Conc 31.6 g/dL (30-55); Mean Corpuscular Hemoglobin 25.9 pg (27-33); Mean Corpuscular Volume 81.9 fl (82-101); Nucleated Red Blood Cells % 0 %; Platelet Count 284 10^3/cmm (157-399); Red Blood Count 3.86 10^6/uL (3.85-5.65); White Blood Count 10.93 10^3/uL (3.29-11.43)
[2024-12-19 11:34] LABS: Alanine Aminotransferase 9 U/L (0-41); Albumin Level 3.5 g/dL (3.5-5.2); Alkaline Phosphatase 104 U/L (40-130); Anion Gap 19.4 (5-19); Aspartate Amino Transferase 14 U/L (0-40); Blood Urea Nitrogen 17 mg/dL (8-23); Calcium 8.7 mg/dL (8.5-10.5); Carbon Dioxide 20 mmol/L (22-29); Chloride 91 mmol/L (98-107); Creatinine Clr Calc Pharmacy 54.7281; Globulin 4.7 g/dL (1.3-4.6); Glucose 103 mg/dL (65-115); Osmolality Calculated 264 mOsm/kg (285-295); Potassium 4.4 mmol/L (3.5-5.1); Sodium 126 mmol/L (136-145); Total Protein 8.2 g/dL (6.6-8.7)
--- NOTE | 2024-12-19 13:14 | XR_ITS ---
WS: [id number] Left foot, 3 views, 12/19/2024 Clinical Data: Infected big toe Comparison: Left foot, 12/19/2024 Findings: There is erosion of the distal phalanx of the left great toe on the lateral aspect. There is soft tissue swelling of the great toe. The remainder of the bones of the foot is unchanged. XR/XR foot LT min 3V* [id number] Impression: Erosion of the distal phalanx of left great toe consistent with osteomyelitis.
--- NOTE | 2024-12-19 13:14 | ECG_ITS ---
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 Measurements Intervals [place] Rate: 90 P: 0 FL: 0 QRS: -3 QRSD: 99 T: 30 QT: 349 QTc: 427 Interpretive Statements ATRIAL FIBRILLATION MINIMAL ST DEPRESSION [0.025+ mV ST DEPRESSION] Compared to ECG 10/08/2024 15:08:49 Intraventricular conduction delay no longer present ST (T wave) deviation still present Electronically Signed On 12-22-2024 08:52:01 CDT by Kit Jett M.D. [email or web address]
--- NOTE | 2024-12-19 13:16 | W.ED.RECABL ---
HPI - Recheck/Abnormal Lab/Rx General: Chief Complaint: Recheck/Abnormal Lab/Rx Stated Complaint: sent by dr nassar Time Seen by Provider: 12/19/24 13:03 History of Present Illness: Patient is 74-year-old gentleman with CAD, HTN, on Xarelto and Plavix presents to ED with left big toe infected. He has had worsening issues with this left big toe for 5-6 weeks. He has been following with wound care and podiatry. He saw podiatry earlier today, recommended amputation of his left big toe on Tuesday, and antibiotics in the interim/admission to the hospital service. Patient denies any fever, however he says that he feels a little chills since he has been in the ED Related Data Home Medications ?Medication ?Instructions ?Recorded ?Confirmed tamsulosin 0.4 mg capsule 0.4 mg PO DAILY 09/29/23 12/19/24 furosemide 40 mg tablet (Lasix) 40 mg PO QAM 06/21/24 12/19/24 Previous Rx's ?Medication ?Instructions ?Recorded carvedilol 12.5 mg tablet See Rx Instructions .Route 10/15/24 .COMPLEX #180 tabs alendronate 70 mg tablet See Rx Instructions .Route 11/09/24 .COMPLEX #12 tabs clonidine HCl 0.1 mg tablet 0.1 mg PO BID #60 tabs 11/12/24 clopidogrel 75 mg tablet 75 mg PO DAILY #90 tabs 11/20/24 furosemide 80 mg tablet (Lasix) 80 mg PO DAILY #30 tabs 11/27/24 mupirocin 2 % topical ointment 1 applic topical BID #22 grams 11/27/24 (Centany) pantoprazole 40 mg tablet,delayed 40 mg PO DAILY #60 tabs 11/29/24 release rivaroxaban 2.5 mg tablet 2.5 mg PO BID #60 tabs 12/11/24 sulfamethoxazole 800 1 tab PO BID #20 tabs 12/13/24 mg-trimethoprim 160 mg tablet (Bactrim DS) Allergies Allergy/AdvReac Type Severity Reaction Status Date / Time oxycodone Allergy ADR-Itching Verified 12/19/24 07:14 fentanyl AdvReac Intermediate made him Verified 12/19/24 07:14 paranoid Review of Systems General: Reports: 10 or more systems reviewed and unremarkable except in HPI and below Const: Denies: fever(s) or chills Eyes: Denies: change in vision or blurry vision ENMT: Denies: throat pain or mouth pain Card: Reports: irregular heart rhythm (chronic afib); Denies: chest pain, palpitations or edema Resp: Denies: dyspnea or non-productive cough GI: Denies: abdominal pain, nausea or vomiting : Denies: flank pain or difficulty urinating Musc: Reports: extremity pain, joint pain, joint swelling, joint redness, joint warmth, joint stiffness, limited range of motion and muscle weakness; Denies: neck pain, back pain or extremity swelling Neuro: Reports: numbness in extremities, weakness in extremities, lack of coordination and difficulty walking; Denies: headache(s), sensory changes, frequent falls, dizziness, vertigo, confusion, behavioral changes or Slurred speech present Psych: Denies: anxiety or depression Jason/Lymph: Denies: easy bruising or easy bleeding All/Imm: Denies: urticaria or throat swelling PFSH ED PFSH: Medical History (Updated 12/19/24 @ 16:11 by OZZY Hudson) PAD (peripheral artery disease) Subchondral sclerosis Longstanding persistent atrial fibrillation Lumbar spinal stenosis Hyponatremia This has been chronic for several years. Made worse by diuretics. Negative work-up otherwise Gout Chronic kidney disease (CKD) Primary hypertension Diabetes mellitus type 2, controlled COPD (chronic obstructive pulmonary disease) GERD (gastroesophageal reflux disease) Social History Smoking and tobacco/nicotine status: never used tobacco/nicotine Physical Exam Const: COMMON NORMALS: no acute distress, patient oriented x3 and alert NUTRITIONAL APPEARANCE: obese ORIENTATION/CONSCIOUSNESS: Yes awake HENMT: COMMON NORMALS: normocephalic, atraumatic and EAC's normal HEAD & SCALP: normocephalic and atraumatic FACE & SINUS: normal facial exam and face symmetric EXTERNAL AUDITORY CANAL: EAC's normal Neck/C-Spine: COMMON NORMALS: full ROM, no lymphadenopathy and supple Lymph: LYMPHATIC: no lymphadenopathy noted Chest: COMMONS NORMALS: normal inspection of the chest Resp: COMMON NORMALS: normal respiratory effort, No retractions and clear to auscultation bilaterally AUSCULTATION: clear to auscultation bilaterally Cardio: COMMON NORMALS: regular rate and regular rhythm RATE: regular rate RHYTHM: regular rhythm GI: COMMON NORMALS: Normal to inspection, nondistended, normoactive bowel sounds present and Soft to palpation PALPATION: Yes Soft to palpation : COMMON NORMALS: Yes no CVA tenderness BLADDER/KIDNEY EXAM: Yes no CVA tenderness Back/Pelvis: COMMON NORMALS: no CVA tenderness Extremity: COMMON NORMALS: full ROM LEFT LOWER EXTREMITY: Yes foot & digits Left foot and digits: Yes inspection (entire toe without dermis layer, wet at edges without redness, black distal), Yes ROM (present) and Yes other (1st toe above, superficial ulcer to 3rd toe as well) OTHER: PP +1 Neuro: COMMON NORMALS: patient oriented x3, CN's II-XII intact bilaterally and moves all extremities SENSORIUM/ORIENTATION: Yes alert Psych: COMMON NORMALS: mental status grossly normal, Normal thought process present, cooperative, normal affect and speech normal SPEECH: Yes normal speech THOUGHT PROCESS: Normal thought process present Course Consultations: Consultation #1: Discussed with Dr. Maldonado, excepted admission for inpatient, medical, due to left toe ulcer/cellulitis with osteomyelitis. Dr. Nassar will consult. Vital Signs: Vital signs: Vital Signs Temperature 98.4 F 12/19/24 10:16 Pulse Rate 100 12/19/24 10:16 Respiratory Rate 16 12/19/24 10:16 Blood Pressure 105/63 12/19/24 10:16 Pulse Oximetry 99 12/19/24 10:16 Oxygen Delivery Me thod Room Air 12/19/24 10:16 MDM - Recheck/Abnormal Lab/Rx Medical Decision Making Patient is a 74-year-old gentleman reports to ED after seeing Dr. Nassar this a.m. for possible amputation on Tuesday. Patient then states that Dr. Rowland will consult here. Dr. Maldonado has excepted admission from hospitalist standpoint. Blood cultures have been drawn. Laboratory data is fairly insignificant except for CRP of 130. X-ray shows destruction of distal phalanx consistent with OM. Vancomycin has been ordered. All of his questions answered satisfaction. Patient also had elevation creatinine and decrease in sodium, which I suspect secondary to his furosemide. Cannot check his urine sodium at this time since it will be inaccurate. Will detour to the hospitalist, however we will hold Lasix, and refer to them for fluid replacement or holding of Lasix. Medical Records I reviewed the patient's medical records. Lab Data 12/19/24 11:10 12/19/24 11:10 Radiology Impressions Foot X-Ray 12/19/24 13:14 Impression: Erosion of the distal phalanx of left great toe consistent with osteomyelitis. Laboratory Results WBC 10.93 10^3/uL (3.29-11.43) 12/19/24 11:10 RBC 3.86 10^6/uL (3.85-5.65) 12/19/24 11:10 Hgb 10.00 g/dL (11.27-16.99) L 12/19/24 11:10 Hct 31.6 % (37-53) L 12/19/24 11:10 MCV 81.9 fl (82-101) L 12/19/24 11:10 MCH 25.9 pg (27-33) L 12/19/24 11:10 MCHC 31.6 g/dL (30-55) 12/19/24 11:10 RDW 15.9 % (12.1-15.1) H 12/19/24 11:10 Plt Count 284 10^3/cmm (157-399) 12/19/24 11:10 MPV 9.4 fL (7.4-10.4) 12/19/24 11:10 Neut % (Auto) 72.7 % 12/19/24 11:10 Lymph % (Auto) 13.6 % 12/19/24 11:10 Letcher % (Auto) 10.9 % 12/19/24 11:10 Eos % (Auto) 1.8 % 12/19/24 11:10 Baso % (Auto) 0.5 % 12/19/24 11:10 Neut # (Auto) 7.95 10^3/uL (1.8-7.7) H 12/19/24 11:10 Lymph # (Auto) 1.5 10^3/uL (0.8-4.8) 12/19/24 11:10 Letcher # (Auto) 1.2 10^3/uL (0.2-0.9) H 12/19/24 11:10 Eos # (Auto) 0.2 10^3/uL (0.0-0.8) 12/19/24 11:10 Baso # (Auto) 0.1 10^3/uL (0.0-0.1) 12/19/24 11:10 Nucleated RBC % (auto) 0 % 12/19/24 11:10 Nucleated RBCs # 0.0 /100WBC 12/19/24 11:10 ESR 58 mm/hr (0-10) H 12/19/24 11:10 Sodium 126 mmol/L (136-145) L 12/19/24 11:10 Potassium 4.4 mmol/L (3.5-5.1) 12/19/24 11:10 Chloride 91 mmol/L (98-107) L 12/19/24 11:10 Carbon Dioxide 20 mmol/L (22-29) L 12/19/24 11:10 Anion Gap 19.4 (5-19) H 12/19/24 11:10 BUN 17 mg/dL (8-23) 12/19/24 11:10 Creatinine 1.5 mg/dL (0.7-1.2) H 12/19/24 11:10 GFR Calculation Not Reportable 12/19/24 11:10 Glucose 103 mg/dL (65-115) 12/19/24 11:10 Calculated Osmolality 264 mOsm/kg (285-295) L 12/19/24 11:10 Calcium 8.7 mg/dL (8.5-10.5) 12/19/24 11:10 Total Bilirubin 0.6 mg/dL (0.15-1.2) 12/19/24 11:10 AST 14 U/L (0-40) 12/19/24 11:10 ALT 9 U/L (0-41) 12/19/24 11:10 Alkaline Phosphatase 104 U/L (40-130) 12/19/24 11:10 C-Reactive Protein 130.3 mg/L (0.0-4.9) H 12/19/24 11:10 Total Protein 8.2 g/dL (6.6-8.7) 12/19/24 11:10 Albumin 3.5 g/dL (3.5-5.2) 12/19/24 11:10 Globulin 4.7 g/dL (1.3-4.6) H 12/19/24 11:10 All radiology interpretation(s) finalized by discharge ED provider radiology interpretation(s): OM distal hallux Discharge Plan Discharge Patient Disposition: Admitted As Inpatient Clinical Impression: Left hallux osteomyelitis, PAD (peripheral artery disease), Chronic ulcer of toe, Acute hyponatremia, Elevated serum creatinine Condition: Stable Coding Level of Care Code ED Groundskeeper Supervisor for Clyde Perla
[2024-12-19] MEDS: vancomycin 1,750 MG/350 ML PIGGYBACK 175 MG IV (14:50)
--- NOTE | 2024-12-19 15:29 | PM.HP ---
Providers/Chief Complaint Primary Care Provider: Anand Geiger MD Chief Complaint: sent by dr nassar History of Present Illness Monty Christopher 74yrs M presented to the podiatric clinic today for follow-up of left hallux wound. Patient stated that he is unable to care for this wound at home due to the difficulty for him getting down there to dress it up. Dressing to left great toe with strike through and Coban wrapped tightly around the toe. The patient did not endorse any high-grade fever or chills or any signs of active infection or sepsis. The patient is well aware that he has poor blood flow to his lower extremities that is the likely reason of his unhealing wound. The patient has been recommended amputation of his left big toe by the gleason gear generator and to continue antibiotics while inpatient admission. The patient did not endorse any other drug abuse history of trauma shortness of breath chest pain dizziness nausea vomiting diarrhea. Rest of the review of system was unremarkable. Not actively smoking. Review of Systems General: Reports: 10 or more systems reviewed and unremarkable except in HPI and below Medications/Allergies Home Medications ?Medication ?Instructions ?Recorded ?Confirmed ?Last Taken ?Type tamsulosin 0.4 mg capsule 0.4 mg PO DAILY 09/29/23 12/19/24 11/19/24 05:00 History furosemide 40 mg tablet (Lasix) 40 mg PO QAM 06/21/24 12/19/24 11/18/24 History carvedilol 12.5 mg tablet See Rx Instructions .Route 10/15/24 12/19/24 11/19/24 05:00 Rx .COMPLEX #180 tabs alendronate 70 mg tablet See Rx Instructions .Route 11/09/24 12/19/24 11/19/24 05:00 Rx .COMPLEX #12 tabs clonidine HCl 0.1 mg tablet 0.1 mg PO BID #60 tabs 11/12/24 12/19/24 11/19/24 05:00 Rx clopidogrel 75 mg tablet 75 mg PO DAILY #90 tabs 11/20/24 12/19/24 Unknown Rx furosemide 80 mg tablet (Lasix) 80 mg PO DAILY #30 tabs 11/27/24 12/19/24 Unknown Rx mupirocin 2 % topical ointment 1 applic topical BID #22 grams 11/27/24 12/19/24 Unknown Rx (Centany) pantoprazole 40 mg tablet,delayed 40 mg PO DAILY #60 tabs 11/29/24 12/19/24 Unknown Rx release rivaroxaban 2.5 mg tablet 2.5 mg PO BID #60 tabs 12/11/24 12/19/24 Unknown Rx sulfamethoxazole 800 1 tab PO BID #20 tabs 12/13/24 12/19/24 Unknown Rx mg-trimethoprim 160 mg tablet (Bactrim DS) Allergies Allergy/AdvReac Type Severity Reaction Status Date / Time oxycodone Allergy ADR-Itching Verified 12/19/24 07:14 fentanyl AdvReac Intermediate made him Verified 12/19/24 07:14 paranoid PFSH Acute PFSH: Medical History (Updated 12/19/24 @ 16:11 by OZZY Hudson) PAD (peripheral artery disease) Subchondral sclerosis Longstanding persistent atrial fibrillation Lumbar spinal stenosis Hyponatremia This has been chronic for several years. Made worse by diuretics. Negative work-up otherwise Gout Chronic kidney disease (CKD) Primary hypertension Diabetes mellitus type 2, controlled COPD (chronic obstructive pulmonary disease) GERD (gastroesophageal reflux disease) Social History Smoking and tobacco/nicotine status: never used tobacco/nicotine Vitals/I&O/Wt Last Vital Signs Temp 98.4 F 12/19/24 10:16 Pulse 100 12/19/24 10:16 Resp 16 12/19/24 10:16 BP 105/63 12/19/24 10:16 Pulse Ox 99 12/19/24 10:16 O2 Del Method Room Air 12/19/24 10:16 Weight last 48 hrs Weight 117.934 kg Physical Exam Narrative: General: Alert oriented x3, patient seen sitting comfortably on the chair HEENT: Normocephalic, atraumatic, EOMI, breathing at room air Cardio: Regular rate rhythm, normal S1-S2, no murmurs rubs gallops, Respiratory: Good bilateral air entry, no wheezes no rhonchi appreciated GI: Abdomen soft, nontender, nondistended, normoactive bowel sounds present all 4 quadrants, Neuro: Cranial nerves II to XII intact, strength 5/5, sensation 5/5, no gross neurological deficit Behavior: Appropriate and cooperative Extremities: Bilateral lower extremity edema mild pitting in nature, signs of venous stasis and skin thickening appreciated. Left lower extremity foot wrapped in bandage by the podiatry Skin: As mentioned above Data 12/19/24 11:10 12/19/24 11:10 A&P Assessment and plan 1. Gangrene: 2. Open toe wound: 3. Open wound of left great toe, initial encounter: 4. Stenosis of common iliac artery: 5. PAD (peripheral artery disease): 6. Longstanding persistent atrial fibrillation: 7. Chronic kidney disease (CKD): 8. Primary hypertension: 9. Diabetes mellitus type 2, controlled: 10. COPD (chronic obstructive pulmonary disease): 11. GERD (gastroesophageal reflux disease): Plan: - continue on vanc and Zosyn for broad antibiotic coverage for left foot cellulitis deep tissue infection due to PAD with possibility of OM since there is bone erosion on XR foot - wound care - send blood cultures - continue on home medications for PAD with clopidogrel 75mg daily - duo nebs as needed for COPD - GI prophylaxis with famotidine and malox - carvedilol and clonidine for HTN - PT DM is controlled , sliding scale insulin - continue flomax for BPH VTE: rivaroxaban 2.5mg daily PDMP PDMP Reviewed: Not Reviewed Attestations Medical Necessity Statement*: Monty Christopher's hospital stay will require greater than 2 midnights for peripheral artery disease ulcer and amputation with further coverage of antibiotics Time Spent in Patient Care: 16 - 35 minutes (>than 50% of time spent in counselling and/or direct pt care on unit). Other Attestations: Patient condition has been discussed at length with the patient/family, I have independently reviewed the chart labs imaging and diagnostics and EKG. the goals of care and code status with the patient/family/NOK/legal lead generation representative, and documented accordingly. The patient/family has been informed about the current condition and further plan of care. Agreed with the plan of care and understood without any language barrier. This documentation was created by [employer] studio sales associate software. Every effort was made to ensure accuracy of studio sales associate. Any obvious errors or omissions should be clarified with the author of the document. Coding Level of Care Code 56131 Diagnoses Gangrene I96 Open toe wound S91.109A Open wound of left great toe, initial encounter S91.102A Encounter type: initial encounter Stenosis of common iliac artery I70.0 PAD (peripheral artery disease) I73.9 Longstanding persistent atrial fibrillation I48.11 Atrial fibrillation type: longstanding persistent Chronic kidney disease (CKD) N18.9 Primary hypertension I10 Hypertension type: primary hypertension Diabetes mellitus type 2, controlled E11.9 COPD (chronic obstructive pulmonary disease) J44.9 GERD (gastroesophageal reflux disease) K21.9
[2024-12-19] MEDS: heparin 5,000 unit/mL INJ 1 mL 5000 UNIT SUBCUT (15:44)
[2024-12-19 16:23] LABS: Lactic Sepsis W/Reflex 1.1 mmol/L (0.5-2.2)
[2024-12-19] MEDS: piperacillin-tazobactam 3.375 GM in sodium chloride 0.9% (plus) 50 ML IV (18:19)
--- NOTE | 2024-12-19 18:21 | PM.CONSULT ---
Providers/Reason For Consult Consulting Physician/Specialty*: Phoenix Rowland D.P.M./podiatry Reason for Consult*: Osteomyelitis left great toe. Attending Physician: Alonzo Maldonado MD Primary Care Provider: Anand Geiger MD History of Present Illness History of Present Illness Monty Christopher is a 74 year old male presents to the emergency department with a diabetic ulceration left great toe history of peripheral arterial disease. Patient endorses increasing subjective fevers. Patient admitted to hospital service for IV antibiotics and surgical intervention planning on partial first ray amputation of the left foot for source control and cardiology consultation for evaluation of PAD. Review of Systems General: Reports: 10 or more systems reviewed and unremarkable except in HPI and below Const: Denies: fever(s) or chills Eyes: Denies: change in vision Card: Denies: chest pain or palpitations Resp: Denies: dyspnea or productive cough GI: Denies: abdominal pain, nausea or vomiting : Denies: flank pain Musc: Reports: extremity swelling, joint stiffness and deformity Skin/Breast: Reports: erythema, sores, changes in skin color, dry skin, nail changes and change in hair Neuro: Reports: numbness in extremities, sensory changes and difficulty walking Psych: Denies: suicidal ideation Endo: Denies: change in body appearance Jason/Lymph: Denies: tender lymph nodes Medications/Allergies Home Medications ?Medication ?Instructions ?Recorded ?Confirmed ?Last Taken ?Type tamsulosin 0.4 mg capsule 0.4 mg PO DAILY 09/29/23 12/19/24 11/19/24 05:00 History furosemide 40 mg tablet (Lasix) 40 mg PO QAM 06/21/24 12/19/24 11/18/24 History carvedilol 12.5 mg tablet See Rx Instructions .Route 10/15/24 12/19/24 11/19/24 05:00 Rx .COMPLEX #180 tabs alendronate 70 mg tablet See Rx Instructions .Route 11/09/24 12/19/24 11/19/24 05:00 Rx .COMPLEX #12 tabs clonidine HCl 0.1 mg tablet 0.1 mg PO BID #60 tabs 11/12/24 12/19/24 11/19/24 05:00 Rx clopidogrel 75 mg tablet 75 mg PO DAILY #90 tabs 11/20/24 12/19/24 Unknown Rx furosemide 80 mg tablet (Lasix) 80 mg PO DAILY #30 tabs 11/27/24 12/19/24 Unknown Rx mupirocin 2 % topical ointment 1 applic topical BID #22 grams 11/27/24 12/19/24 Unknown Rx (Centany) pantoprazole 40 mg tablet,delayed 40 mg PO DAILY #60 tabs 11/29/24 12/19/24 Unknown Rx release rivaroxaban 2.5 mg tablet 2.5 mg PO BID #60 tabs 12/11/24 12/19/24 Unknown Rx sulfamethoxazole 800 1 tab PO BID #20 tabs 12/13/24 12/19/24 Unknown Rx mg-trimethoprim 160 mg tablet (Bactrim DS) Allergies Allergy/AdvReac Type Severity Reaction Status Date / Time oxycodone Allergy ADR-Itching Verified 12/19/24 07:14 fentanyl AdvReac Intermediate made him Verified 12/19/24 07:14 paranoid Current Medications Generic Name Dose Route Start Last Admin Trade Name Freq PRN Reason Stop Dose Admin Carvedilol 12.5 mg 12/19/24 18:00 12/19/24 18:19 Carvedilol 12.5 Mg Tablet PO 12.5 mg BID LEÓN Administration Clonidine HCl 0.1 mg 12/19/24 18:00 12/19/24 18:18 Clonidine 0.1 Mg Tablet PO 0.1 mg BID LEÓN Administration Piperacillin Sod/Tazobactam 50 mls @ 12.5 mls/hr 12/19/24 18:00 12/19/24 18:19 Sod 3.375 gm/ Sodium Chloride IV 12.5 mls/hr Q8H LEÓN Administration PFSH Acute PFSH: Medical History (Updated 12/19/24 @ 19:13 by Phoenix Rowland DPM) PAD (peripheral artery disease) Subchondral sclerosis Longstanding persistent atrial fibrillation Lumbar spinal stenosis Hyponatremia This has been chronic for several years. Made worse by diuretics. Negative work-up otherwise Gout Chronic kidney disease (CKD) Primary hypertension Diabetes mellitus type 2, controlled COPD (chronic obstructive pulmonary disease) GERD (gastroesophageal reflux disease) Social History Smoking and tobacco/nicotine status: never used tobacco/nicotine Vitals/I&O/Wt Last Vital Signs Temp 98.7 F 12/19/24 18:14 Pulse 102 H 12/19/24 18:14 Resp 20 H 12/19/24 18:14 BP 119/71 12/19/24 18:18 Pulse Ox 98 12/19/24 18:14 O2 Del Method Room Air 12/19/24 18:14 12/19/24 12/19/24 12/19/24 06:59 14:59 22:59 Intake Total 350 / 350 Balance 350 / 350 Weight last 48 hrs Weight 260 lb Physical Exam Narrative: GENERAL: Patient is alert and oriented ?3 and in no acute distress. The following is a focused bilateral lower extremity exam. VASCULAR: Dorsalis pedis nonpalpable. Posterior tibial arteries nonpalpable. Capillary refill time delayed to the distal hallux bilaterally. Calf is supple and nontender proximally and distally. Decreased pedal hair growth, pitting edema to the lower extremities. NEUROLOGICAL: Protective sensation intact 0/10 sites, tested with [place] monofilament to bilateral feet. DERMATOLOGICAL: Full-thickness wound encompassing the left great toe probes to bone plantarly has ischemic changes without proximal lymphangitic streaking, dependent rubor to the lower extremities. Toenails 1, 2, 3, 4, 5 left and right foot are elongated, thickened and discolored with subungual debris. Lower extremity integument is atrophic with decreased texture and turgor, has thin shiny appearance. MUSCULOSKELETAL: No crepitus with palpation left great toe wound. Muscle strength +5 in all 3 planes bilateral foot and ankle. Data 12/19/24 11:10 12/19/24 11:10 Micro: Microbiology 12/19/24 15:07 Blood Culture - Preliminary Blood SPECIMEN COLLECTED 12/19/24 15:07 Blood Culture - Preliminary Blood SPECIMEN COLLECTED A&P Assessment and plan 1. PAD (peripheral artery disease): 2. Acute osteomyelitis of left foot: 3. Non-pressure chronic ulcer of other part of left foot with necrosis of bone: PROCEDURE: Full thickness wound debridement Location: Left great toe Local Anesthesia: none due to neuropathy Consent: Verbal Sterile Prep: with alcohol Details: Full thickness sharp debridement of the wound was performed using sterile dermal curette. The wound was debrided of hyperkeratotic rim and devitalized and fibrotic tissue down to bone, being the deepest level of debridement. Predebridement measurements: 3.5 cm x 4 cm x 0.4 cm Postdebridement measurements: 4 cm x 4.4 cm x 0.4 cm Hemostasis: Pressure Irrigation: sterile saline Dressing: Betadine wet-to-dry Estimated Blood Loss: minimal Offloading: Nonweightbearing Postdebridement informed patient on findings of osteomyelitis distal phalanx left great toe with gangrenous changes encompassing the entire left great toe and recommended partial first ray amputation this would entail the left great toe and a portion of the distal aspect of the first metatarsal. Patient is in agreements. I informed the patient he has diminished pedal pulses and vascular studies consistent with significant peripheral arterial disease and that he would be at risk of delayed healing and nonhealing. Recommended consultation with cardiology. I reviewed at length with the patient, the risks, potential complications, benefits, alternatives, expectations, and typical outcomes associated with the surgery. The risks and potential complications were explained in detail, including but not limited to infection, wound dehiscence or soft tissue complications, bleeding and hematoma, chronic edema, neuritis or nerve damage producing numbness or chronic pain, CRPS, failure to relieve pain or worsening pain, thick / painful / unsightly scar, limited motion / stiffness, malposition, delayed union, malunion, or nonunion, fracture, reaction to implants, anesthetic complications, venous thromboembolism, and deformity recurrence. I discussed the notion of no regrets with the patient as it pertains to complications and outcomes. The patient seemed to understand the nature of the proposed care and required convalescence. They asked appropriate questions, answered to their satisfaction. They are aware no guarantees can be made as to a satisfactory outcome and they understand there may be other possible unforeseen complications or outcomes not listed here that will be treated accordingly if they arise. There were no written or implied guarantees given to the patient. They gave informed consent to proceed. Plan for left foot partial first ray amputation tomorrow AM. 4. Diabetic peripheral neuropathy associated with type 2 diabetes mellitus: Plan: 74-year-old diabetic male presents with acute osteomyelitis left great toe distal phalanx with gangrenous changes encompassing the left great toe history of peripheral arterial disease. Most recent A1c 5.10 June 2024, no leukocytosis, ESR 58, CRP 130.3 mg/L. Left foot x-ray today shows bony destruction of the distal phalanx left great toe consistent with osteomyelitis, no soft tissue edema no foreign body, M?nckeberg's arteriosclerosis appreciated at the pedal arteries. Duplex arterial scan performed 12/11/2024 significant for left leg severe peripheral arterial disease also demonstrated on CT angiogram performed 09/19/2024. - N.p.o. at midnight in preparation for left foot partial first ray amputation scheduled tomorrow 12/20/2024 - Continue anticoagulants perioperatively. - Recommend cardiology consultation due to nonpalpable pedal pulse, patient is at risk of delayed healing and nonhealing after infection source control/amputation of left great toe. Podiatry will follow. PDMP PDMP Reviewed: Not Reviewed Coding Level of Care Code Acute Code for [facility] Fwd Diagnoses PAD (peripheral artery disease) I73.9 Acute osteomyelitis of left foot M86.172 Non-pressure chronic ulcer of other part of left foot with necrosis of bone L97.524 Diabetic peripheral neuropathy associated with type 2 diabetes mellitus E11.42
--- NOTE | 2024-12-19 18:47 | PHA.VACGOAL ---
Vancomycin Goal - Goal Vancomycin Goal:: 15-20 mg/L Vancomycin Indication:: Osteo - Therapy Current therapy:: Pip/Tazo Day of therpy:: Day []of [] . Actual body weight (kg): 260 lb - Data Labs: WBC 10.93 10^3/uL (3.29-11.43) 12/19/24 11:10 RBC 3.86 10^6/uL (3.85-5.65) 12/19/24 11:10 Hgb 10.00 g/dL (11.27-16.99) L 12/19/24 11:10 Hct 31.6 % (37-53) L 12/19/24 11:10 MCV 81.9 fl (82-101) L 12/19/24 11:10 MCH 25.9 pg (27-33) L 12/19/24 11:10 MCHC 31.6 g/dL (30-55) 12/19/24 11:10 RDW 15.9 % (12.1-15.1) H 12/19/24 11:10 Sodium 126 mmol/L (136-145) L 12/19/24 11:10 Potassium 4.4 mmol/L (3.5-5.1) 12/19/24 11:10 Chloride 91 mmol/L (98-107) L 12/19/24 11:10 Carbon Dioxide 20 mmol/L (22-29) L 12/19/24 11:10 Anion Gap 19.4 (5-19) H 12/19/24 11:10 BUN 17 mg/dL (8-23) 12/19/24 11:10 Creatinine 1.5 mg/dL (0.7-1.2) H 12/19/24 11:10 GFR Calculation Not Reportable 12/19/24 11:10 Treatment plan:: new consult Regimen:: PATIENT WITH SUSPECTED OSTEO AND FOOT WOUND. PATIENT RECOMMENDED BY PODIATRY TO HAVE TOE AMPUTATION TUESDAY, WITH ANTIBIOTICS IN THE INTERIM. PATIENT WAS ADMINISTERED 1750 MG LOADING DOSE IN ER. STARTING MAINTENANE DOSE OF 1250 MG Q12H PER PROTOCOL, WILL DRAW TROUGH PRIOR TO 4TH DOSE.
[2024-12-20] VITALS (15 sets, daily range): BP systolic 107–164; BP diastolic 68–90; PULSE 69–100; RESP 16–19; TEMP 36.2–36.9; O2SAT 94–98
[2024-12-20] MEDS: piperacillin-tazobactam 3.375 GM in sodium chloride 0.9% (plus) 50 ML IV ×3 (02:05→17:51)
[2024-12-20 06:07] LABS: Hematocrit 30.0 % (37-53); Hemoglobin 9.30 g/dL (11.27-16.99); Mean Corpuscular HGB Conc 31.0 g/dL (30-55); Mean Corpuscular Hemoglobin 25.5 pg (27-33); Mean Corpuscular Volume 82.4 fl (82-101); Nucleated Red Blood Cells % 0 %; Platelet Count 259 10^3/cmm (157-399); Red Blood Count 3.64 10^6/uL (3.85-5.65); White Blood Count 8.17 10^3/uL (3.29-11.43)
[2024-12-20 06:29] LABS: Alanine Aminotransferase 8 U/L (0-41); Albumin Level 3.0 g/dL (3.5-5.2); Alkaline Phosphatase 93 U/L (40-130); Anion Gap 19.2 (5-19); Aspartate Amino Transferase 15 U/L (0-40); Blood Urea Nitrogen 19 mg/dL (8-23); Calcium 8.4 mg/dL (8.5-10.5); Carbon Dioxide 18 mmol/L (22-29); Chloride 96 mmol/L (98-107); Creatinine Clr Calc Pharmacy 61.8475; Globulin 4.3 g/dL (1.3-4.6); Glucose 119 mg/dL (65-115); Osmolality Calculated 271 mOsm/kg (285-295); Potassium 4.2 mmol/L (3.5-5.1); Sodium 129 mmol/L (136-145); Total Protein 7.3 g/dL (6.6-8.7)
[2024-12-20 06:36] LABS: Estmated Average Glucose 111; Hemoglobin A1C 5.5 % (4.0-6.0)
--- NOTE | 2024-12-20 09:34 | P.ANESASSM_ITS ---
Pre-Anesthetic Assessment Height/Weight: Height 1.78 m Weight 116.63 kg Temp Pulse Resp BP Pulse Ox O2 Del Method 97.6 F 83 18 141/78 96 Room Air 12/20/24 09:12/20/24 09:29 12/20/24 09:29 12/20/24 09:29 12/20/24 09:12/20/24 09:29 Preop Diagnosis: Osteomyelitis left foot. Operation Date: 12/20/24 10:30 Proposed Procedures p Amputation Toe/s(Left) - Phoenix Rowland DPM Familial anesthetic complications: none Was Beta Duncan taken within 24 hours: Yes Was Clonidine taken within 24 hours: N/A Last intake: Intake Last Liquid Date 12/19/24 Last Liquid Time 23:30 Last Solid Date 12/19/24 Last Solid Time 19:00 Social Alcohol (nightly cocktail) and No alcohol Exam alert, oriented x 3, clear to auscultation bilaterally and regular rate & rhythm Airway Mallampati: Class III Pulmonary Chronic Obstructive Pulmonary Disease CV/HEM Atrial Fibrillation, Hypertension and Peripheral Vascular Disease Chronic Renal Insufficiency GI Gastroesophageal Reflux Disease Metabolic Diabetes Mellitus Anesthetic Plan ASA status: 3 Anesthesia: MAC Medications/Allergies Home Medications ?Medication ?Instructions ?Recorded ?Confirmed ?Last Taken ?Type tamsulosin 0.4 mg capsule 0.4 mg PO DAILY 09/29/2311/19/24 05:00 History furosemide 40 mg tablet (Lasix) 40 mg PO QAM 06/21/24 12/19/24 11/18/24 History carvedilol 12.5 mg tablet See Rx Instructions .Route 0 10/15/24 12/19/24 11/19/24 05:00 Rx .COMPLEX #180 tabs alendronate 70 mg tablet See Rx Instructions .Route 0 11/09/24 12/19/24 11/19/24 05:00 Rx .COMPLEX #12 tabs clonidine HCl 0.1 mg tablet 0.1 mg PO BID #60 tabs 12/19/24 11/19/24 05:00 Rx clopidogrel 75 mg tablet 75 mg PO DAILY #90 tabs 10/3112/19/24 Unknown Rx furosemide 80 mg tablet (Lasix) 80 mg PO DAILY #30 tab s 11/27/24 12/19/24 Unknown Rx mupirocin 2 % topical ointment 1 applic topical BID #2 2 grams 11/27/24 12/19/24 Unknown Rx (Centany) pantoprazole 40 mg tablet,delayed 40 mg PO DAILY #60 t abs 11/29/24 12/19/24 Unknown Rx release rivaroxaban 2.5 mg tablet 2.5 mg PO BID #60 tabs 12/1112/19/24 Unknown Rx sulfamethoxazole 800 1 tab PO BID #20 tabs 12/19/24 Unknown Rx mg-trimethoprim 160 mg tablet (Bactrim DS) Allergies Allergy/AdvReac Type Severity Reaction Status Date / Time oxycodone Allergy ADR-Itching Verified 12/19/24 07:14 fentanyl AdvReac Intermediate made him Verified 12/19/24 07:14 paranoid Current Medications Generic Name Dose Route Start Last Admin Trade Name Lupilloq PRN Reason Stop Dose Admin Carvedilol 12.5 mg 12/20/24 05:00 12/20/24 05:17 Carvedilol 12.5 Mg Tablet PO 12.5 mg On Hold: 12/20/24 09:24 BID@0500,1700 [facility] Administration Comment: Order held by Process Transfer Clonidine HCl 0.1 mg 12/20/24 05:00 12/20/24 05:17 Clonidine 0.1 Mg Tablet PO 0.1 mg On Hold: 12/20/24 09:24 BID@0500,1700 [facility] Administration Comment: Order held by Process Transfer Clopidogrel Bisulfate 75 mg 12/20/24 09:00 12/20/24 08:58 Clopidogrel 75 Mg Tablet PO Not Given On Hold: 12/20/24 09:24 DAILY LEÓN Comment: Order held by Process Transfer Piperacillin Sod/Tazobactam 50 mls @ 12.5 mls/hr 12/19/24 18:00 12/20/24 07:08 Sod 3.375 gm/ Sodium Chloride IV Infused Q8H LEÓN Infusion Vancomycin HCl 1,250 mg in 250 mls @ 166.667 mls/hr 12/20/24 02:30 12/20/24 03:52 Vancocin IV Infused On Hold: 12/20/24 09:24 Q12H LEÓN Infusion Comment: Order held by Process Transfer Pantoprazole Sodium 40 mg 12/20/24 09:00 12/20/24 08:[address] 40 Mg Tablet PO Not Given On Hold: 12/20/24 09:24 DAILY LEÓN Comment: Order held by Process Transfer Tamsulosin HCl 0.4 mg 12/20/24 09:00 12/20/24 08:58 Tamsulosin 0.4 Mg Capsule PO Not Given On Hold: 12/20/24 09:24 DAILY LEÓN Comment: Order held by Process Transfer [facility] Anesthesia Medical History (Updated 12/19/24 @ 19:13 by Phoenix Rowland DPM) PAD (peripheral artery disease) Subchondral sclerosis Longstanding persistent atrial fibrillation Lumbar spinal stenosis Hyponatremia This has been chronic for several years. Made worse by diuretics. Negative work-up otherwise Gout Chronic kidney disease (CKD) Primary hypertension Diabetes mellitus type 2, controlled COPD (chronic obstructive pulmonary disease) GERD (gastroesophageal reflux disease) Social History Smoking and tobacco/nicotine status: never used tobacco/nicotine Data Anesthesia 12/20/24 05:23 12/20/24 05:23 Short CBC 12/19/24 12/20/24 Range/Units 11:10 05:23 WBC 10.93 8.17 (3.29-11.43) 10^3/uL Hgb 10.00 L 9.30 L (11.27-16.99) g/dL Hct 31.6 L 30.0 L (37-53) % MCV 81.9 L 82.4 (82-101) fl Plt Count 284 259 (157-399) 10^3/cmm Neut % (Auto) 72.7 71.8 % Neut # (Auto) 7.95 H 5.87 (1.8-7.7) 10^3/uL BMP 12/19/24 12/20/24 11:10 05:23 Sodium 126 L 129 L Potassium 4.4 4.2 Chloride 91 L 96 L Carbon Dioxide 20 L 18 L BUN 17 19 Creatinine 1.5 H 1.3 H Glucose 103 119 H Calcium 8.7 8.4 L Liver Function 12/19/24 12/20/24 Range/Units 11:10 05:23 Total Bilirubin 0.6 0.6 (0.15-1.2) mg/dL AST 14 15 (0-40) U/L ALT 9 8 (0-41) U/L Alkaline Phosphatase 104 93 (40-130) U/L Albumin 3.5 3.0 L (3.5-5.2) g/dL Coags 12/19/24 11:10 ESR 58 H C-Reactive Protein 130.3 H Microbiology 12/19/24 15:07 Blood Culture - Preliminary Blood SPECIMEN COLLECTED 12/19/24 15:07 Blood Culture - Preliminary Blood SPECIMEN COLLECTED Cardiac Studies: 2 Echocardiogram 03/16/23
--- NOTE | 2024-12-20 10:33 | W.PM.OPSUD ---
Surgery/Procedure H&P Update DATE OF PROCEDURE: December 20, 2024 DATE H&P PERFORMED: 12/19/24 H&P UPDATE INFORMATION: I have reviewed H&P completed within last 30 days, I have examined patient prior to procedure, No changes to prior documentation and Risks and benefits of the procedure reviewed PREOP DIAGNOSIS: Osteomyelitis left foot. PLANNED PROCEDURE: Operation Date: 12/20/24 10:30 Proposed Procedures p Amputation Toe/s(Left) - Phoenix Rowland DPM
[2024-12-20] MEDS: BUPivacaine 0.5% INJ 30 mL INJECTION (11:11)
--- NOTE | 2024-12-20 11:13 | PC.OT ---
OT TREATMENT ATTEMPTED; PATIENT IN SURGERY AND UNAVAILABLE. WILL BE ATTEMPTED TOMORROW.
--- NOTE | 2024-12-20 11:36 | PM.PN ---
Subjective Subjective: the patient was seen in the morning and doing well. s/p surgery Partial first ray amputation left foot without any complication. wound covered with dressing and stabilized for partial wt bearing Vitals/I&O/Wt Last Vital Signs Temp 97.3 F L 12/20/24 11:35 Pulse 85 12/20/24 11:35 Resp 16 12/20/24 11:35 BP 113/73 12/20/24 11:35 Pulse Ox 94 12/20/24 11:35 O2 Del Method Simple Mask 12/20/24 11:35 O2 Flow Rate 8 12/20/24 11:35 12/19/24 12/20/24 12/20/24 22:59 06:59 14:59 Intake Total 400 / 400 250 / 650 50 / 50 Output Total 300 / 300 400 / 700 Balance 100 / 100 -150 / -50 50 / 50 Weight last 48 hrs Weight 116.63 kg Weight 117.934 kg Weight 117.934 kg Physical Exam Narrative: General: Alert oriented x3, patient seen sitting comfortably on the chair HEENT: Normocephalic, atraumatic, EOMI, breathing at room air Cardio: Regular rate rhythm, normal S1-S2, no murmurs rubs gallops, Respiratory: Good bilateral air entry, no wheezes no rhonchi appreciated GI: Abdomen soft, nontender, nondistended, normoactive bowel sounds present all 4 quadrants, Neuro: Cranial nerves II to XII intact, strength 5/5, sensation 5/5, no gross neurological deficit Behavior: Appropriate and cooperative Extremities Left lower extremity foot wrapped in bandage s/p Partial first ray amputation left foot, right leg with chronic skin changes of PAD, mild edema Skin: As mentioned above Data 12/20/24 05:23 12/20/24 05:23 Micro: Microbiology 12/19/24 15:07 Blood Culture - Preliminary Blood SPECIMEN COLLECTED 12/19/24 15:07 Blood Culture - Preliminary Blood SPECIMEN COLLECTED A&P Assessment and plan 1. Gangrene: 2. Open toe wound: 3. Open wound of left great toe, initial encounter: 4. Stenosis of common iliac artery: 5. PAD (peripheral artery disease): 6. Longstanding persistent atrial fibrillation: 7. Chronic kidney disease (CKD): 8. Primary hypertension: 9. Diabetes mellitus type 2, controlled: 10. COPD (chronic obstructive pulmonary disease): 11. GERD (gastroesophageal reflux disease): Plan: - continue on vanc and Zosyn for broad antibiotic coverage for left foot cellulitis deep tissue infection s/p Partial first ray amputation left foot and to continue - cardio onboard for cath angio of the extremities considering the patient is having severe PAD on ABP index - wound care to follow - negative blood cultures till date - continue on home medications for PAD with clopidogrel 75mg daily and rivaroxaban 2.5mg bid - duo nebs as needed for COPD - GI prophylaxis with famotidine and malox - carvedilol and clonidine for HTN - PT DM is controlled , sliding scale insulin - continue flomax for BPH VTE: SCD. hold night dose of rivaroxaban as the diet: NPO midnight for PAD cath tomorrow as per cardio plan PDMP PDMP Reviewed: Not Reviewed Attestations Medical Necessity Statement*: Monty Christopher's hospital stay will continue for management of severe peripheral artery disease induced LE ulcer s/p amputation of the Partial first ray amputation left foot and need of cath of vessels of extremities as per cardio plan Time Spent in Patient Care: 16 - 35 minutes (>than 50% of time spent in counselling and/or direct pt care on unit). Other Attestations: Patient condition has been discussed at length with the patient/family, I have independently reviewed the chart labs imaging and diagnostics and EKG. the goals of care and code status with the patient/family/NOK/legal title insurance sales representative, and documented accordingly. The patient/family has been informed about the current condition and further plan of care. Agreed with the plan of care and understood without any language barrier. This documentation was created by [employer] mill operator helper software. Every effort was made to ensure accuracy of mill operator helper. Any obvious errors or omissions should be clarified with the author of the document. Coding Level of Care Code 79710 Diagnoses Gangrene I96 Open toe wound S91.109A Open wound of left great toe, initial encounter S91.102A Encounter type: initial encounter Stenosis of common iliac artery I70.0 PAD (peripheral artery disease) I73.9 Longstanding persistent atrial fibrillation I48.11 Atrial fibrillation type: longstanding persistent Chronic kidney disease (CKD) N18.9 Primary hypertension I10 Hypertension type: primary hypertension Diabetes mellitus type 2, controlled E11.9 COPD (chronic obstructive pulmonary disease) J44.9 GERD (gastroesophageal reflux disease) K21.9
--- NOTE | 2024-12-20 11:37 | W.PM.BPON ---
Date of Procedure: 07/15/23 Surgeon: Phoenix Rowland DPM Facilities Operations Technician(s): Odette Procedure(s) performed: Partial first ray amputation left foot. Findings of the procedure(s): Osteomyelitis distal phalanx left great toe Estimated blood loss: 5 milliliters Specimen(s) removed: Left great toe and first metatarsal head sent to pathology for permanent Post-operative diagnosis: Osteomyelitis left foot
--- NOTE | 2024-12-20 11:38 | PM.OP ---
Operative Report Date of procedure: December 20, 2024 Pre-op diagnosis: Osteomyelitis left great toe Post-op diagnosis: Same Post-op findings: Osteomyelitis distal phalanx left great toe Procedure done: Partial first ray amputation left foot. CPT code 95287 Implants: 2-0 Vicryl, 4-0 nylon Pathology: Left great toe sent to pathology for permanent Surgeon: Phoenix Rowland DPM Cannery Tender Engineer: Odette Estimated blood loss: 5 22 IV fluids: See intraoperative documentation Urine output: None Complications: no complications Brief History: Monty Christopher is a 74 year old male presents to the emergency department with a diabetic ulceration left great toe history of peripheral arterial disease. Patient endorses increasing subjective fevers. Patient admitted to hospital service for IV antibiotics and surgical intervention planning on partial first ray amputation of the left foot for source control and cardiology consultation for evaluation of PAD. 74-year-old diabetic male presents with acute osteomyelitis left great toe distal phalanx with gangrenous changes encompassing the left great toe history of peripheral arterial disease. Most recent A1c 5.10 June 2024, no leukocytosis, ESR 58, CRP 130.3 mg/L. Left foot x-ray today shows bony destruction of the distal phalanx left great toe consistent with osteomyelitis, no soft tissue edema no foreign body, M?nckeberg's arteriosclerosis appreciated at the pedal arteries. Duplex arterial scan performed 12/11/2024 significant for left leg severe peripheral arterial disease also demonstrated on CT angiogram performed 09/19/2024. Procedure: Under mild sedation the patient was brought to the operating room and remained on the gurney in supine position. A timeout was performed. Anesthesia was then administered by the anesthesia service. Local anesthesia injected by myself consisting of one-to-one mixture 1% lidocaine and 0.5's of Marcaine plain total of 20 cc in a left Aguilar block fashion. Well-padded pneumatic tourniquet applied to the left ankle. The left lower extremity was scrubbed, prepped and draped utilizing normal aseptic technique. Left foot was then elevated and tourniquet inflated to 250 mmHg. Attention was directed to the left foot where a full-thickness wound exposed to bone with devitalized distal phalanx of the left great toe was visualized. A tennis racquet incision was planned out full-thickness through skin down to bone with a 10 blade encompassing the left first ray. Sagittal saw utilized a bevel a osteotomy through the distal aspect of the left first metatarsal and the left first ray was removed and passed from operative field to be sent to pathology for gross anatomical review. The incision was irrigated with copious amounts of sterile skin solution. All bleeders were ligated and cauterized as necessary. Extensor and flexor tendons transected under traction at the most proximal margin. The incision was irrigated saline solution no further devitalized tissue was appreciated. This was then closed in a layered fashion with deep tissue reapproximated 2-0 Vicryl, subcutaneous tissue with 3-0 Vicryl and skin with 4-0 nylon. Incision was dressed with Xeroform, 4 x 4's, Kerlix and Callum wrap followed by application of postop shoe. Tourniquet was deflated and a hyperemic response is noted to the remaining digits of the left foot. Patient tolerated the procedure and anesthesia well and was transferred to the PACU with vital signs stable and vascular status intact. Following a period of postoperative monitoring he will be transferred back to the floor.
--- NOTE | 2024-12-20 12:17 | PC.PHAR ---
I spoke to Jeff'alexa to verify medications. Patiient was in Surgery , I could not get last taken date.
--- NOTE | 2024-12-20 15:37 | ANE.PACU2 ---
Inpatient post-anesthesia follow up: Airway intact: Yes Vital signs: Temperature 97.2 F Pulse Rate 83 Respiratory Rate 18 Blood Pressure 124/71 Pulse Oximetry 98 Oxygen Delivery Me thod Room Air Oxygen Flow Rate 8 Fraction of Inspir ed Oxygen Hydration adequate: Yes Nausea and vomiting: No Pain level: 1 Mental status: Baseline
[2024-12-21] VITALS (20 sets, daily range): BP systolic 122–152; BP diastolic 62–92; PULSE 90–108; RESP 14–29; TEMP 36.4–37.2; O2SAT 92–100
[2024-12-21] MEDS: piperacillin-tazobactam 3.375 GM in sodium chloride 0.9% (plus) 50 ML IV ×3 (02:13→19:29)
[2024-12-21 05:16] LABS: Hematocrit 29.3 % (37-53); Hemoglobin 9.10 g/dL (11.27-16.99); Mean Corpuscular HGB Conc 31.1 g/dL (30-55); Mean Corpuscular Hemoglobin 26.0 pg (27-33); Mean Corpuscular Volume 83.7 fl (82-101); Nucleated Red Blood Cells % 0 %; Platelet Count 262 10^3/cmm (157-399); Red Blood Count 3.50 10^6/uL (3.85-5.65); White Blood Count 9.50 10^3/uL (3.29-11.43)
[2024-12-21 05:35] LABS: Alanine Aminotransferase 8 U/L (0-41); Albumin Level 3.1 g/dL (3.5-5.2); Alkaline Phosphatase 91 U/L (40-130); Anion Gap 17.2 (5-19); Aspartate Amino Transferase 12 U/L (0-40); Blood Urea Nitrogen 19 mg/dL (8-23); Calcium 8.6 mg/dL (8.5-10.5); Carbon Dioxide 18 mmol/L (22-29); Chloride 100 mmol/L (98-107); Creatinine Clr Calc Pharmacy 58.6827; Globulin 4.0 g/dL (1.3-4.6); Glucose 126 mg/dL (65-115); Osmolality Calculated 276 mOsm/kg (285-295); Potassium 4.2 mmol/L (3.5-5.1); Sodium 131 mmol/L (136-145); Total Protein 7.1 g/dL (6.6-8.7)
--- NOTE | 2024-12-21 08:11 | P.PN_ITS ---
Subjective 2 Subjective: * the patient was seen in the morning and doing well. s/p surgery Partial first ray amputation left foot without any complication. wound covered with dressing and stabilized for partial wt bearing * today for cath angio for the bilateral extremities by the cardio for further evaluation of the blood flow to the LE Vitals/I&O/Wt Last Vital Signs Temp 98.3 F 12/21/24 07:10 Pulse 93 12/21/24 07:10 Resp 19 H 12/21/24 07:10 BP 150/82 12/21/24 07:10 Pulse Ox 98 12/21/24 07:10 O2 Del Method Room Air 12/21/24 07:10 O2 Flow Rate 8 12/20/24 11:40 12/20/24 12/21/24 12/21/24 22:59 06:59 14:59 Intake Total 1260 / 1360 300 / 1660 Output Total 300 / 305 300 / 605 Balance 960 / 1055 0 / 1055 Weight last 48 hrs Weight 121.563 kg Weight 116.63 kg Weight 117.934 kg Weight 117.934 kg Physical Exam 2 Narrative: General: Alert oriented x3, patient seen sitting comfortably on the chair HEENT: Normocephalic, atraumatic, EOMI, breathing at room air Cardio: Regular rate rhythm, normal S1-S2, no murmurs rubs gallops, Respiratory: Good bilateral air entry, no wheezes no rhonchi appreciated GI: Abdomen soft, nontender, nondistended, normoactive bowel sounds present all 4 quadrants, Neuro: Cranial nerves II to XII intact, strength 5/5, sensation 5/5, no gross neurological deficit Behavior: Appropriate and cooperative Extremities Left lower extremity foot wrapped in bandage s/p Partial first ray amputation left foot, right leg with chronic skin changes of PAD, mild edema Skin: As mentioned above Data 12/21/24 04:53 12/21/24 04:53 Micro: Microbiology 12/19/24 15:07 Blood Culture - Preliminary Blood NEGATIVE TO DATE 12/19/24 15:07 Blood Culture - Preliminary Blood NEGATIVE TO DATE A&P Assessment and plan 1. Gangrene: 2. JUDITH (acute kidney injury): 3. Open toe wound: 4. Open wound of left great toe, initial encounter: 5. Stenosis of common iliac artery: 6. PAD (peripheral artery disease): 7. Longstanding persistent atrial fibrillation: 8. Chronic kidney disease (CKD): 9. Primary hypertension: 10. Diabetes mellitus type 2, controlled: 11. COPD (chronic obstructive pulmonary disease): 12. GERD (gastroesophageal reflux disease): Plan: - continue on vanc and Zosyn for broad antibiotic coverage for left foot cellulitis deep tissue infection s/p Partial first ray amputation left foot and to continue, to follow the podiatry plan - cardio onboard for cath angio of the extremities considering the patient is having severe PAD on ABP index, and to follow post cath - wound care to follow - negative blood cultures till date - continue on home medications for PAD with clopidogrel 75mg daily and rivaroxaban 2.5mg bid post cath after discussing with the cardiology - JUDITH on CKD is improving with adequate hydration and treatment infective source, - duo nebs as needed for COPD - GI prophylaxis with famotidine and malox - carvedilol and clonidine for HTN - PT DM is controlled , sliding scale insulin - continue flomax for BPH VTE: SCD meantime and to change to rivaroxaban after cath diet: cardiac diet to resume post cath PDMP PDMP Reviewed: Not Reviewed Attestations 2 Medical Necessity Statement*: Monty Christopher's hospital stay will continue for management of severe peripheral artery disease induced LE ulcer s/p amputation of the Partial first ray amputation left foot and need of cath of vessels of extremities as per cardio plan. Time Spent in Patient Care: 16 - 35 minutes (>than 50% of time sp ent in counselling and/or direct pt care on unit) . Other Attestations: Patient condition has been discussed at length with the patient/family, I have independently reviewed the chart labs imaging and diagnostics and EKG. the goals of care and code status with the patient/family/NOK/legal retail sales representative, and documented accordingly. The patient/family has been informed about the current condition and further plan of care. Agreed with the plan of care and understood without any language barrier. This documentation was created by [employer] group leader software. Every effort was made to ensure accuracy of [employer] group leader. Any obvious errors or omissions should be clarified with the author of the document. Coding Level of Care Code 95427 Diagnoses Gangrene I96 JUDITH (acute kidney injury) N17.9 Open toe wound S91.109A Open wound of left great toe, initial encounter S91.102A Encounter type: initial encounter Stenosis of common iliac artery I70.0 PAD (peripheral artery disease) I73.9 Longstanding persistent atrial fibrillation I48.11 Atrial fibrillation type: longstanding persistent Chronic kidney disease (CKD) N18.9 Primary hypertension I10 Hypertension type: primary hypertension Diabetes mellitus type 2, controlled E11.9 COPD (chronic obstructive pulmonary disease) J44.9 GERD (gastroesophageal reflux disease) K21.9
--- NOTE | 2024-12-21 10:00 | P.CONIM_ITS ---
<Statement entered by Kit Jett M.D - 12/23/24 11:58> Patient was cared for in conjunction with an advanced practice practitioner.? I reviewed the chart and all pertinent data including imaging, telemetry, and laboratory results.? I discussed the patient in detail with the advanced practice practitioner.? Please see?their note for consult note, testing results and agreed upon plan of care for the patient. Providers/Reason For Consult 2 Consulting Physician/Specialty*: Dr Jett, interventional cardiology Reason for Consult*: Evaluation of PAD Requesting Physician: Alonzo Maldonado MD Attending Physician: Alonzo Maldonado MD Primary Care Provider: Anand Geiger MD History of Present Illness History of Present Illness Monty Christopher is a 74 year old male with past medical history of atrial fibrillation, diabetes, PAD. He was sent to the emergency room from a podiatry office visit due to findings of wet gangrene of the left hallux with fever and chills, nonpalpable pulses of the left foot. He had CTA of the aorta with runoff 09/19/2024: Multifocal areas of moderate to severe stenosis in the left iliac, patent left femoral/profunda arteries, severe multifocal stenosis of the left SFA multifocal stenosis of the popliteal. Below the knee three-vessel runoff. At that time he had multifocal areas of moderate to severe stenosis within the right SFA and three-vessel runoff on the right. He underwent peripheral angiogram on 11/19/2024 with shockwave intravascular lithotripsy of the ostial, proximal, mid, distal right common femoral. At that time left ostial external iliac was treated with IVR and Omnilink stent placed. With this admission he had arterial duplex of the lower extremities 12/11/2024: TAZ of the left 0.68 consistent with severe PAD, TAZ of the right 0.82 consistent on mild to moderate PAD. Monophasic waveform noted from the left common femoral, left SFA, left popliteal. He underwent partial first ray amputation in the left foot yesterday due to osteomyelitis. Consult was requested for evaluation of PAD for possible peripheral intervention. Review of Systems 2 Card: Denies: chest pain, irregular heart rhythm, syncope, dyspnea on exertion or orthopnea Resp: Denies: dyspnea, productive cough, non-productive cough or hemoptysis Medications/Allergies Home Medications ?Medication ?Instructions ?Recorded ?Confirmed ?Last Taken ?Type tamsulosin 0.4 mg capsule 0.4 mg PO DAILY 09/29/2311/19/24 05:00 History furosemide 40 mg tablet (Lasix) 40 mg PO QAM 06/21/24 12/20/24 11/18/24 History carvedilol 12.5 mg tablet See Rx Instructions .Route 0 10/15/24 12/20/24 11/19/24 05:00 Rx .COMPLEX #180 tabs alendronate 70 mg tablet See Rx Instructions .Route 0 11/09/24 12/20/24 11/19/24 05:00 Rx .COMPLEX #12 tabs clonidine HCl 0.1 mg tablet 0.1 mg PO BID #60 tabs 12/20/24 11/19/24 05:00 Rx clopidogrel 75 mg tablet 75 mg PO DAILY #90 tabs 10/3112/20/24 Unknown Rx furosemide 80 mg tablet (Lasix) 80 mg PO DAILY #30 tab s 11/27/24 12/20/24 Unknown Rx mupirocin 2 % topical ointment 1 applic topical BID #2 2 grams 11/27/24 12/20/24 Unknown Rx (Centany) pantoprazole 40 mg tablet,delayed 40 mg PO DAILY #60 t abs 11/29/24 12/20/24 Unknown Rx release rivaroxaban 2.5 mg tablet 2.5 mg PO BID #60 tabs 12/1112/20/24 Unknown Rx sulfamethoxazole 800 1 tab PO BID #20 tabs 12/20/24 Unknown Rx mg-trimethoprim 160 mg tablet (Bactrim DS) furosemide 40 mg tablet 80 mg PO QAM 12/20/24 Unknown History Allergies Allergy/AdvReac Type Severity Reaction Status Date / Time oxycodone Allergy ADR-Itching Verified 12/19/24 07:14 fentanyl AdvReac Intermediate made him Verified 12/19/24 07:14 paranoid Current Medications Generic Name Dose Route Start Last Admin Trade Name Amelia PRN Reason Stop Dose Admin Carvedilol 12.5 mg 12/20/24 05:00 12/21/24 04:54 Carvedilol 12.5 Mg Tablet PO 12.5 mg BID@0500,1700 LEÓN Administration Clonidine HCl 0.1 mg 12/20/24 05:00 12/21/24 04:54 Clonidine 0.1 Mg Tablet PO 0.1 mg BID@0500,1700 LEÓN Administration Clopidogrel Bisulfate 75 mg 12/20/24 09:00 12/21/24 08:38 Clopidogrel 75 Mg Tablet PO 75 mg DAILY LEÓN Administration Furosemide 80 mg 12/21/24 06:00 12/21/24 04:54 Furosemide 40 Mg Tablet PO 80 mg QAM LEÓN Administration Piperacillin Sod/Tazobactam 50 mls @ 12.5 mls/hr 12/19/24 18:00 12/21/24 10:29 Sod 3.375 gm/ Sodium Chloride IV 12.5 mls/hr Q8H LEÓN Administration Vancomycin HCl 1,250 mg in 250 mls @ 166.667 mls/hr 12/20/24 02:30 12/21/24 04:29 Vancocin IV Infused Q12H LEÓN Infusion Sodium Chloride 1,000 mls @ 100 mls/hr 12/21/24 10:00 12/21/24 10:29 Sodium Chloride 0.9% IV 100 mls/hr .Q10H LEÓN Administration Ketorolac Tromethamine 10 mg 12/19/24 15:24 12/21/24 03:22 Ketorolac 10 Mg Tablet PO 12/24/24 15:23 10 mg ONCE PRN Administration MODERATE PAIN Pantoprazole Sodium 40 mg 12/20/24 09:00 12/21/24 08:[address] 40 Mg Tablet PO 40 mg DAILY LEÓN Administration Tamsulosin HCl 0.4 mg 12/20/24 09:00 12/21/24 08:38 Tamsulosin 0.4 Mg Capsule PO 0.4 mg DAILY LEÓN Administration PFSH Acute 2 PFSH: Medical History PAD (peripheral artery disease) Subchondral sclerosis Longstanding persistent atrial fibrillation Lumbar spinal stenosis Hyponatremia This has been chronic for several years. Made worse by diuretics. Negative work-up otherwise Gout Chronic kidney disease (CKD) Primary hypertension Diabetes mellitus type 2, controlled COPD (chronic obstructive pulmonary disease) GERD (gastroesophageal reflux disease) Social History Smoking and tobacco/nicotine status: never used tobacco/nicotine Vitals/I&O/Wt Last Vital Signs Temp 98.3 F 12/21/24 11:08 Pulse 108 H 12/21/24 11:08 Resp 18 12/21/24 11:08 BP 130/87 12/21/24 11:08 Pulse Ox 98 12/21/24 11:08 O2 Del Method Room Air 12/21/24 11:08 O2 Flow Rate 8 12/20/24 11:40 12/20/24 12/21/24 12/21/24 22:59 06:59 14:59 Intake Total 1260 / 1660 300 / 1660 Output Total 300 / 605 300 / 605 450 / 450 Balance 960 / 1055 0 / 1055 -450 / -450 Weight last 48 hrs Weight 268 lb Weight 257 lb 2 oz Weight 260 lb Physical Exam 2 Const: COMMON NORMALS: no acute distress and patient oriented x3 GENERAL APPEARANCE: cooperative and comfortable ORIENTATION/CONSCIOUSNESS: Yes awake, Yes oriented to person, Yes oriented to place and Yes oriented to time Chest: COMMONS NORMALS: normal inspection of the chest and normal palpation of entire chest wall CHEST: Yes Symmetrical chest wall rise Resp: COMMON NORMALS: normal respiratory effort, No retractions, No use of accessory muscles and clear to auscultation bilaterally EFFORT & INSPECTION: Yes symmetric chest movement AUSCULTATION: clear to auscultation bilaterally Cardio: COMMON NORMALS: regular rate, S1 normal heart sound present, S2 normal heart sound present, No gallops present (Cardio), No clicks present (Cardio), No murmurs present (Cardio) and No rub (Cardio) RATE: regular rate RHYTHM: a bnormal rhythm irregularly irregular HEART SOUNDS: S1 normal heart sound present and S2 normal heart sound present PERIPHERAL PULSES: radial pulses present Neuro: COMMON NORMALS: patient oriented x3 and moves all extremities S ENSORIUM/ORIENTATION: Yes oriented to person, Yes oriented to place and Yes oriented to time Data 12/21/24 04:53 12/21/24 04:53 Micro: Microbiology 12/19/24 15:07 Blood Culture - Preliminary Blood NEGATIVE TO DATE 12/19/24 15:07 Blood Culture - Preliminary Blood NEGATIVE TO DATE A&P Assessment and plan 1. PAD (peripheral artery disease): 2. Longstanding persistent atrial fibrillation: 3. Primary hypertension: 4. Diabetes mellitus type 2, controlled: 5. Chronic kidney disease (CKD): 6. Acute osteomyelitis of left foot: Plan: Discussed left leg significant stenosis with patient this morning, he is agreeable for peripheral angiogram today to promote better blood flow and wound healing of the recent surgical site on the left foot. Started normal saline IV at 100 mL/h for prehydration. Xarelto has been on hold in preparation for surgical procedures. Continue Plavix. PDMP PDMP Reviewed: Not Reviewed Coding Level of Care Code Acute Code for [facility] Diagnoses PAD (peripheral artery disease) I73.9 Longstanding persistent atrial fibrillation I48.11 Atrial fibrillation type: longstanding persistent Primary hypertension I10 Hypertension type: primary hypertension Diabetes mellitus type 2, controlled E11.9 Chronic kidney disease (CKD) N18.9 Acute osteomyelitis of left foot M86.172
--- NOTE | 2024-12-21 11:27 | PC.SOCIAL ---
IMM Updated Updated pt on IMM. No questions voiced. Provided pt a copy. Initialed, dated, & timed a copy & placed in chart.
--- NOTE | 2024-12-21 11:35 | W.PM.OPSUD ---
Surgery/Procedure H&P Update DATE OF PROCEDURE: December 21, 2024 DATE H&P PERFORMED: 12/19/24 H&P UPDATE INFORMATION: I have reviewed H&P completed within last 30 days, I have examined patient prior to procedure and No changes to prior documentation PREOP DIAGNOSIS: Severe Peripheral artery disease/ Non-healing wound s/p recent amputation PRIMARY INDICATION FOR PROCEDURE: Severe Peripheral artery disease ( confirmed with doppler ultrasound of left lower extremity/ Non-healing wound s/p recent amputation PLANNED PROCEDURE: Operation Date: 12/21/24 Proposed Procedures Peripheral angiogram with possible intervention PATIENT REASSESSED PRIOR TO SEDATION, WITH NO CHANGE NOTED: Yes PHYSICAL EXAM: alert, oriented x 3, clear to auscultation bilaterally and regular rate & rhythm AIRWAY EVAL/ANESTHESIA PLAN: normal airway, ASA III, Local Anesthesia, Risks, benefits & alternatives of sedation and/or procedure discussed and Patient agrees to continue as planned ADDITIONAL INFORMATION: Moderate sedation
--- NOTE | 2024-12-21 11:59 | PC.NURSE ---
Patient went to Chief I Dispatcher for Procedure. Will not return to this floor
--- NOTE | 2024-12-21 12:55 | PC.OT ---
Hold OT evaluation today due to pt having procedure; will attempt again at a later time.
--- NOTE | 2024-12-21 13:00 | PM.PROC ---
Procedure Note: Date of procedure: 12/21/24 Pre-procedure diagnosis: Severe peripheral artery disease/ Non-healing wound Post-procedure diagnosis: other (Severe ostial to proximal left common iliac stenosis s/p 1 stent and shockwave lithotripsy) Procedure: Ostial left iliac artery has severe 80 to 90% calcified stenosis. This correlates with monophasic waveform on arterial duplex seen in common femoral artery. Status post shockwave lithotripsy balloon angioplasty and 1 stent placement. Excellent angiographic results obtained. Below the knee patient has two-vessel runoff with patent anterior tibial artery. Peroneal artery close to ankle has diffuse disease. Aspirin and plavix for today. Resume anticoagulation with Xarelto when cleared from podiatry Performing Provider: Kit Jett Estimated blood loss (mL): 10 Complications: None Condition: stable Disposition: floor Coding Level of Care Code Acute Code for [facility] Fwd
--- NOTE | 2024-12-21 13:08 | P.PN_ITS ---
Subjective 2 Subjective: 1 day status post left partial first ray amputation secondary to gangrene. Denies any complaints. Vitals/I&O/Wt Last Vital Signs Temp 98.3 F 12/21/24 11:08 Pulse 108 H 12/21/24 11:08 Resp 18 12/21/24 11:08 BP 130/87 12/21/24 11:08 Pulse Ox 98 12/21/24 11:08 O2 Del Method Room Air 12/21/24 11:08 O2 Flow Rate 8 12/20/24 11:40 12/20/24 12/21/24 12/21/24 22:59 06:59 14:59 Intake Total 1260 / 1360 300 / 1660 Output Total 300 / 305 300 / 605 450 / 450 Balance 960 / 1055 0 / 1055 -450 / -450 Weight last 48 hrs Weight 268 lb Weight 257 lb 2 oz Weight 260 lb Physical Exam 2 Narrative: GENERAL: Patient is alert and oriented ?3 and in no acute distress. The following is a focused bilateral lower extremity exam. VASCULAR: Dorsalis pedis nonpalpable. Posterior tibial arteries nonpalpable. Capillary refill time delayed to the distal hallux bilaterally. Calf is supple and nontender proximally and distally. Decreased pedal hair growth, pitting edema to the lower extremities. NEUROLOGICAL: Protective sensation intact 0/10 sites, tested with [place] monofilament to bilateral feet. DERMATOLOGICAL: Incision is well coapted, sutures in place. Dressing is clean and dry without drainage. MUSCULOSKELETAL: Muscle strength +5 in all 3 planes bilateral foot and ankle. Status post partial first ray amputation left foot. Data 12/23/24 05:14 12/23/24 05:14 Micro: Microbiology 12/19/24 15:07 Blood Culture - Preliminary Blood NEGATIVE TO DATE 12/19/24 15:07 Blood Culture - Preliminary Blood NEGATIVE TO DATE A&P Assessment and plan 1. PAD (peripheral artery disease): 2. Acute osteomyelitis of left foot: 3. Non-pressure chronic ulcer of other part of left foot with necrosis of bone: 4. Diabetic peripheral neuropathy associated with type 2 diabetes mellitus: Plan: 74-year-old diabetic male presents with acute osteomyelitis left great toe distal phalanx with gangrenous changes encompassing the left great toe history of peripheral arterial disease. Status post left partial first ray amputation secondary to osteomyelitis date of operation 12/20/2024 Dressing change, offload with cam boot. May weight-bear with Cam boot and a walker Podiatry will follow PDMP PDMP Reviewed: Not Reviewed Attestations 2 Medical Necessity Statement*: Deferred to primary Coding Level of Care Code Acute Code for [facility] Fwd Diagnoses PAD (peripheral artery disease) I73.9 Acute osteomyelitis of left foot M86.172 Non-pressure chronic ulcer of other part of left foot with necrosis of bone L97.524 Diabetic peripheral neuropathy associated with type 2 diabetes mellitus E11.42
--- NOTE | 2024-12-21 13:29 | PC.NURSE ---
Received the patient back from the clinical laboratory medical director at 1315 via bed s/p stenting of the left common iliac. Patient drowsy but awakens easily to voice. A & 0 x 3. cemetery warden placed and vital signs obtained. Patient with bilateral femoral access sites. 6 salvadorean sheath intact to the right groin. Sutured in to a pressure bag. 7 salvadorean sheath intact to the left groin, sutured in to a pressure bag. Both sites with dry and intact dressings. [facility] The left foot has a large, bulky surgical boot on. Unable to assess pulses at this time. Patient resting with no concerns voiced at this time.
--- NOTE | 2024-12-21 15:15 | PC.NURSE ---
Patient transferred via bed to room 112 with brother at bedside.
--- NOTE | 2024-12-21 16:16 | PC.NURSE ---
see vital signs
[2024-12-21 16:35] LABS: Partial Thromboplastin Time 29.7 SECONDS (23.9-36.7)
[2024-12-22] VITALS (7 sets, daily range): BP systolic 120–141; BP diastolic 68–83; PULSE 87–108; RESP 19–25; TEMP 36.1–37.1; O2SAT 95–100
[2024-12-22] MEDS: piperacillin-tazobactam 3.375 GM in sodium chloride 0.9% (plus) 50 ML IV ×2 (02:37→09:38)
[2024-12-22 04:39] LABS: Hematocrit 30.3 % (37-53); Hemoglobin 9.40 g/dL (11.27-16.99); Mean Corpuscular HGB Conc 31.0 g/dL (30-55); Mean Corpuscular Hemoglobin 25.7 pg (27-33); Mean Corpuscular Volume 82.8 fl (82-101); Nucleated Red Blood Cells % 0 %; Platelet Count 279 10^3/cmm (157-399); Red Blood Count 3.66 10^6/uL (3.85-5.65); White Blood Count 9.36 10^3/uL (3.29-11.43)
[2024-12-22 04:54] LABS: Alanine Aminotransferase 7 U/L (0-41); Albumin Level 3.1 g/dL (3.5-5.2); Alkaline Phosphatase 99 U/L (40-130); Anion Gap 16.4 (5-19); Aspartate Amino Transferase 12 U/L (0-40); Blood Urea Nitrogen 17 mg/dL (8-23); Calcium 8.6 mg/dL (8.5-10.5); Carbon Dioxide 20 mmol/L (22-29); Chloride 99 mmol/L (98-107); Globulin 4.3 g/dL (1.3-4.6); Glucose 143 mg/dL (65-115); Osmolality Calculated 278 mOsm/kg (285-295); Potassium 3.4 mmol/L (3.5-5.1); Sodium 132 mmol/L (136-145); Total Protein 7.4 g/dL (6.6-8.7)
[2024-12-22 05:00] LABS: Creatinine Clr Calc Pharmacy 57.9109
--- NOTE | 2024-12-22 09:01 | P.PN_ITS ---
Subjective 2 Subjective: Patient had successful revascularization of left lower extremity with shockwave balloon lithotripsy and stent placement at ostial left iliac artery. Below the knee has two-vessel runoff with patent anterior tibial artery. Peroneal artery has diffuse disease close to the ankle. Posterior tibial artery reconstitutes via collateral above the ankle. Patient denies any access site discomfort Vitals/I&O/Wt Last Vital Signs Temp 97.3 F L 12/22/24 08:00 Pulse 99 12/22/24 08:00 Resp 22 H 12/22/24 08:00 BP 141/83 12/22/24 08:00 Pulse Ox 100 12/22/24 08:00 O2 Del Method Room Air 12/22/24 08:00 O2 Flow Rate 8 12/20/24 11:40 12/21/24 12/22/24 12/22/24 22:59 06:59 14:59 Intake Total 1740 / 1740 830 / 2570 Output Total 1625 / 2075 Balance 115 / -335 830 / 495 Weight last 48 hrs Weight 261 lb 4.8 oz Weight 268 lb Physical Exam 2 Narrative: GENERAL: Patient is alert, awake and oriented x3. [] NECK: No jugular vein distension. [] HEENT: No cyanosis. No icterus. No pallor. [] HEART: Regular S1 and S2. No murmur, rub or gallop. [] LUNGS: Clear to auscultate bilaterally. [] CENTRAL NERVOUS SYSTEM: Grossly nonfocal. [] EXTREMITIES: Lower extremities with 1+ edema bilaterally. Data 12/23/24 05:14 12/23/24 05:14 A&P Assessment and plan 1. PAD (peripheral artery disease): 2. Stenosis of common iliac artery: 3. Chronic kidney disease (CKD): Plan: Patient's inflow disease has been fixed with 1 stent placement in common iliac artery on left lower extremity. Below the knee has disease but anterior tibial artery has brisk flow all the way to foot, peroneal artery has diffuse disease close to the ankle however is patent and the posterior tibial artery reconstitutes via collaterals above the ankle. With revascularization of inflow and reasonably good blood flow below the knee, wound healing should improve. Continue Plavix. Restart Xarelto. Outpatient cardiology follow-up PDMP PDMP Reviewed: Not Reviewed Attestations 2 Medical Necessity Statement*: Care expected to cross 2 midnights. Coding Level of Care Code Acute Code for Chg Fwd Diagnoses PAD (peripheral artery disease) I73.9 Stenosis of common iliac artery I70.0 Chronic kidney disease (CKD) N18.9
--- NOTE | 2024-12-22 11:07 | P.PN_ITS ---
Subjective 2 Subjective: Patient seen bedside this denies any acute events overnight. Vitals/I&O/Wt Last Vital Signs Temp 97.3 F L 12/22/24 08:00 Pulse 99 12/22/24 08:00 Resp 22 H 12/22/24 08:00 BP 141/83 12/22/24 08:00 Pulse Ox 100 12/22/24 08:00 O2 Del Method Room Air 12/22/24 08:00 O2 Flow Rate 8 12/20/24 11:40 12/21/24 12/22/24 12/22/24 22:59 06:59 14:59 Intake Total 1740 / 1740 830 / 2570 240 / 240 Output Total 1625 / 2075 Balance 115 / -335 830 / 495 240 / 240 Weight last 48 hrs Weight 261 lb 4.8 oz Weight 268 lb Physical Exam 2 Narrative: GENERAL: Patient is alert and oriented ?3 and in no acute distress. The following is a focused bilateral lower extremity exam. VASCULAR: Dorsalis pedis nonpalpable. Posterior tibial arteries nonpalpable. Capillary refill time delayed to the distal hallux bilaterally. Calf is supple and nontender proximally and distally. Decreased pedal hair growth, pitting edema to the lower extremities. NEUROLOGICAL: Protective sensation intact 0/10 sites, tested with [place] monofilament to bilateral feet. DERMATOLOGICAL: Incision is well coapted, sutures in place. Dressing is clean and dry without drainage. MUSCULOSKELETAL: Muscle strength +5 in all 3 planes bilateral foot and ankle. Status post partial first ray amputation left foot. Data 12/23/24 05:14 12/23/24 05:14 A&P Assessment and plan 1. PAD (peripheral artery disease): 2. Acute osteomyelitis of left foot: 3. Non-pressure chronic ulcer of other part of left foot with necrosis of bone: 4. Diabetic peripheral neuropathy associated with type 2 diabetes mellitus: Plan: 74-year-old diabetic male presents with acute osteomyelitis left great toe distal phalanx with gangrenous changes encompassing the left great toe history of peripheral arterial disease. Status post left partial first ray amputation secondary to osteomyelitis date of operation 12/20/2024 Dressing change, offload with cam boot. May weight-bear with Cam boot and a walker Planning on outpatient follow-up in podiatry clinic for continued care. PDMP PDMP Reviewed: Not Reviewed Attestations 2 Medical Necessity Statement*: Deferred to primary Coding Level of Care Code Acute Code for Chg Fwd Diagnoses PAD (peripheral artery disease) I73.9 Acute osteomyelitis of left foot M86.172 Non-pressure chronic ulcer of other part of left foot with necrosis of bone L97.524 Diabetic peripheral neuropathy associated with type 2 diabetes mellitus E11.42
--- NOTE | 2024-12-22 16:32 | P.PN_ITS ---
Subjective 2 Subjective: * the patient was seen in the morning and doing well. s/p surgery Partial first ray amputation left foot without any complication. wound covered with dressing and stabilized for partial wt bearing and underwent cath angio for bilateral extremities, currently doing well * the patient needs rehab and PT eval and exercise graded program considering he has PAD and poor flow to the limbs Vitals/I&O/Wt Last Vital Signs Temp 97.6 F 12/22/24 12:00 Pulse 94 12/22/24 14:00 Resp 22 H 12/22/24 12:00 BP 120/68 12/22/24 12:00 Pulse Ox 95 12/22/24 12:00 O2 Del Method Room Air 12/22/24 12:00 O2 Flow Rate 8 12/20/24 11:40 12/22/24 12/22/24 12/22/24 06:59 14:59 22:59 Intake Total 830 / 2570 290 / 290 Output Total 500 / 500 Balance 830 / 495 -210 / -210 Weight last 48 hrs Weight 118.524 kg Weight 121.563 kg Physical Exam 2 Narrative: General: Alert oriented x3, patient seen sitting comfortably on the chair HEENT: Normocephalic, atraumatic, EOMI, breathing at room air Cardio: Regular rate rhythm, normal S1-S2, no murmurs rubs gallops, Respiratory: Good bilateral air entry, no wheezes no rhonchi appreciated GI: Abdomen soft, nontender, nondistended, normoactive bowel sounds present all 4 quadrants, Neuro: Cranial nerves II to XII intact, strength 5/5, sensation 5/5, no gross neurological deficit Behavior: Appropriate and cooperative Extremities Left lower extremity foot wrapped in bandage s/p Partial first ray amputation left foot, right leg with chronic skin changes of PAD, mild edema, bilateral groin area without any hematoma Skin: As mentioned above Data 12/22/24 02:56 12/22/24 02:56 A&P Assessment and plan 1. Gangrene: 2. JUDITH (acute kidney injury): 3. Open toe wound: 4. Open wound of left great toe, initial encounter: 5. Stenosis of common iliac artery: 6. PAD (peripheral artery disease): 7. Longstanding persistent atrial fibrillation: 8. Chronic kidney disease (CKD): 9. Primary hypertension: 10. Diabetes mellitus type 2, controlled: 11. COPD (chronic obstructive pulmonary disease): 12. GERD (gastroesophageal reflux disease): 13. Anemia: Plan: infected PAD ulcer of the left foot s/p left foot ray amputation by the podiatry -patient had vanc and Zosyn for broad antibiotic coverage for left foot cellulitis deep tissue infection s/p Partial first ray amputation left foot currently no culture growth and to switch to augmentin high dose and monitor - negative cultures till date -patient need exercise graded program for his severe PAD considering poor flow and disrupted wound healing, therefore to consider rehaba and PT.OT for his further optimisation ideally - FU wound care - OT/PT rehab PAD: - cardio onboard s/p bilateral cath angio of the LLE that showed left iliac artery has severe 80 to 90% calcified stenosis, and the blood flow below the knees is severely impaired - continue on clopidogrel 75mg daily and rivaroxaban 10mg daily as per cardio JUDITH on CKD: - is improving with adequate hydration with RL 75ml/hr and to monitor the renal parameters and electrolytes with subsequent correction accordinly Hypokalemia: KCL 40meq and to follow bmp COPD: - duo nebs as needed for COPD Anemia: continue to monitor normocytic in nature, likely Anemia of chronic disease no obvious source HTN: - carvedilol and clonidine for HTN DM-2: - PT DM is controlled , sliding scale insulin BPH: - continue flomax for BPH GERD: Famotidine and maalox VTE: Full dose AC with rivaroxaban 10mg daily diet: cardiac diet PDMP PDMP Reviewed: Not Reviewed Attestations 2 Medical Necessity Statement*: [facility] stay will continue for management of severe peripheral artery disease induced LE ulcer s/p amputation of the Partial first ray amputation left foot and s/p cath angio of the LLE, need appropriate rehab, wt bearing and exercise graded program Time Spent in Patient Care: 16 - 35 minutes (>than 50% of time sp ent in counselling and/or direct pt care on unit) . Other Attestations: Patient condition has been discussed at length with the patient/family, I have independently reviewed the chart labs imaging and diagnostics and EKG. the goals of care and code status with the patient/family/NOK/legal employment representative, and documented accordingly. The patient/family has been informed about the current condition and further plan of care. Agreed with the plan of care and understood without any language barrier. This documentation was created by [email or web address] supervisor modern languages software. Every effort was made to ensure accuracy of supervisor modern languages. Any obvious errors or omissions should be clarified with the author of the document. Coding Level of Care Code 16991 Diagnoses Gangrene I96 JUDITH (acute kidney injury) N17.9 Open toe wound S91.109A Open wound of left great toe, initial encounter S91.102A Encounter type: initial encounter Stenosis of common iliac artery I70.0 PAD (peripheral artery disease) I73.9 Longstanding persistent atrial fibrillation I48.11 Atrial fibrillation type: longstanding persistent Chronic kidney disease (CKD) N18.9 Primary hypertension I10 Hypertension type: primary hypertension Diabetes mellitus type 2, controlled E11.9 COPD (chronic obstructive pulmonary disease) J44.9 GERD (gastroesophageal reflux disease) K21.9 Anemia D64.9
[2024-12-23] VITALS: BP 139/83; PULSE 87; RESP 27; TEMP 36.7; O2SAT 97
[2024-12-23 04:00] VITALS: BP 133/78; PULSE 89; RESP 19; TEMP 36.6; O2SAT 97
[2024-12-23 05:26] LABS: Hematocrit 25.9 % (37-53); Hemoglobin 8.00 g/dL (11.27-16.99); Mean Corpuscular HGB Conc 30.9 g/dL (30-55); Mean Corpuscular Hemoglobin 25.2 pg (27-33); Mean Corpuscular Volume 81.7 fl (82-101); Nucleated Red Blood Cells % 0 %; Platelet Count 218 10^3/cmm (157-399); Red Blood Count 3.17 10^6/uL (3.85-5.65); White Blood Count 7.27 10^3/uL (3.29-11.43)
[2024-12-23 06:15] LABS: Alanine Aminotransferase 8 U/L (0-41); Albumin Level 2.9 g/dL (3.5-5.2); Alkaline Phosphatase 87 U/L (40-130); Anion Gap 17.8 (5-19); Aspartate Amino Transferase 11 U/L (0-40); Blood Urea Nitrogen 17 mg/dL (8-23); Calcium 8.3 mg/dL (8.5-10.5); Carbon Dioxide 18 mmol/L (22-29); Chloride 103 mmol/L (98-107); Globulin 3.9 g/dL (1.3-4.6); Glucose 120 mg/dL (65-115); Osmolality Calculated 283 mOsm/kg (285-295); Potassium 3.8 mmol/L (3.5-5.1); Sodium 135 mmol/L (136-145); Total Protein 6.8 g/dL (6.6-8.7)
[2024-12-23 06:17] LABS: Creatinine Clr Calc Pharmacy 62.1175
[2024-12-23 08:00] VITALS: BP 124/73; PULSE 92; RESP 18; TEMP 36.5; O2SAT 93
--- NOTE | 2024-12-23 08:23 | P.PN_ITS ---
Subjective 2 Subjective: * the patient was seen in the morning and doing well. s/p surgery Partial first ray amputation left foot without any complication. wound covered with dressing and stabilized for partial wt bearing and underwent cath angio for bilateral extremities, currently doing well * the patient needs rehab and PT eval and exercise graded program considering he has PAD and poor flow to the limbs Vitals/I&O/Wt Last Vital Signs Temp 97.8 F 12/23/24 04:00 Pulse 89 12/23/24 04:00 Resp 19 H 12/23/24 04:00 BP 133/78 12/23/24 04:00 Pulse Ox 97 12/23/24 04:00 O2 Del Method Room Air 12/23/24 04:00 O2 Flow Rate 8 12/20/24 11:40 12/22/24 12/23/24 12/23/24 22:59 06:59 14:59 Intake Total 240 / 530 1002.5 / 1532.5 Output Total 0 / 500 0 / 500 Balance 240 / 30 1002.5 / 1032.5 Weight last 48 hrs Weight 117.617 kg Weight 118.524 kg Physical Exam 2 Narrative: General: Alert oriented x3, patient seen sitting comfortably on the chair HEENT: Normocephalic, atraumatic, EOMI, breathing at room air Cardio: Regular rate rhythm, normal S1-S2, no murmurs rubs gallops, Respiratory: Good bilateral air entry, no wheezes no rhonchi appreciated GI: Abdomen soft, nontender, nondistended, normoactive bowel sounds present all 4 quadrants, Neuro: Cranial nerves II to XII intact, strength 5/5, sensation 5/5, no gross neurological deficit Behavior: Appropriate and cooperative Extremities Left lower extremity foot wrapped in bandage s/p Partial first ray amputation left foot, right leg with chronic skin changes of PAD, mild edema, bilateral groin area without any hematoma Skin: As mentioned above Data 12/23/24 05:14 12/23/24 05:14 A&P Assessment and plan 1. Gangrene: 2. JUDITH (acute kidney injury): 3. Open toe wound: 4. Open wound of left great toe, initial encounter: 5. Stenosis of common iliac artery: 6. PAD (peripheral artery disease): 7. Longstanding persistent atrial fibrillation: 8. Chronic kidney disease (CKD): 9. Primary hypertension: 10. Diabetes mellitus type 2, controlled: 11. COPD (chronic obstructive pulmonary disease): 12. GERD (gastroesophageal reflux disease): 13. Anemia: Plan: infected PAD ulcer of the left foot s/p left foot ray amputation by the podiatry -patient had vanc and Zosyn for broad antibiotic coverage for left foot cellulitis deep tissue infection s/p Partial first ray amputation left foot currently no culture growth and to switch to augmentin high dose and monitor - negative cultures till date -patient need exercise graded program for his severe PAD considering poor flow and disrupted wound healing, therefore to consider rehaba and PT.OT for his further optimisation ideally - FU wound care - OT/PT rehab PAD: - cardio onboard s/p bilateral cath angio of the LLE that showed left iliac artery has severe 80 to 90% calcified stenosis, and the blood flow below the knees is severely impaired - continue on clopidogrel 75mg daily and rivaroxaban 10mg daily as per cardio JUDITH on CKD: - is improving with adequate hydration with RL 75ml/hr and to monitor the renal parameters and electrolytes with subsequent correction accordinly Hypokalemia: KCL 40meq and to follow bmp COPD: - duo nebs as needed for COPD Anemia: continue to monitor normocytic in nature, likely Anemia of chronic disease no obvious source HTN: - carvedilol and clonidine for HTN DM-2: - PT DM is controlled , sliding scale insulin BPH: - continue flomax for BPH GERD: Famotidine and maalox VTE: Full dose AC with rivaroxaban 10mg daily diet: cardiac diet PDMP PDMP Reviewed: Not Reviewed Coding Level of Care Code Acute Code for [facility] Fwd Diagnoses Gangrene I96 JUDITH (acute kidney injury) N17.9 Open toe wound S91.109A Open wound of left great toe, initial encounter S91.102A Encounter type: initial encounter Stenosis of common iliac artery I70.0 PAD (peripheral artery disease) I73.9 Longstanding persistent atrial fibrillation I48.11 Atrial fibrillation type: longstanding persistent Chronic kidney disease (CKD) N18.9 Primary hypertension I10 Hypertension type: primary hypertension Diabetes mellitus type 2, controlled E11.9 COPD (chronic obstructive pulmonary disease) J44.9 GERD (gastroesophageal reflux disease) K21.9 Anemia D64.9
[2024-12-23 12:00] VITALS: BP 137/76; PULSE 90; RESP 20; TEMP 36.1; O2SAT 100
--- NOTE | 2024-12-23 13:38 | P.DS_ITS ---
Discharge Providers Date of Admission: 12/19/24 16:52 Date of Discharge: December 23, 2024 Attending Provider at Admission: Alonzo Maldonado MD Attending Provider at Discharge: Alonzo Maldonado MD Primary Care Provider: Anand Geiger MD Diagnoses at Discharge Discharge Diagnosis 1. PAD (peripheral artery disease): 2. Stenosis of common iliac artery: 3. Chronic kidney disease (CKD): 4. Non-pressure chronic ulcer of other part of left foot with necrosis of bone: 5. Amputation of left foot: Reason for Visit Reason for Visit: sent by dr nassar Brief History: Monty Christopher 74yrs M presented to the podiatric clinic today for follow-up of left hallux wound. Patient stated that he is unable to care for this wound at home due to the difficulty for him getting down there to dress it up. Dressing to left great toe with strike through and Coban wrapped tightly around the toe. The patient did not endorse any high-grade fever or chills or any signs of active infection or sepsis. The patient is well aware that he has poor blood flow to his lower extremities that is the likely reason of his unhealing wound. The patient has been recommended amputation of his left big toe by the senior accountant cpa and to continue antibiotics while inpatient admission. The patient did not endorse any other drug abuse history of trauma shortness of breath chest pain dizziness nausea vomiting diarrhea. Rest of the review of system was unremarkable. Not actively smoking. Hospital Course Hospital Course Patient came with left hallux unhealed wound from the podiatry. Blood cultures were sent and were negative up to date. The patient was seen by the senior accountant cpa And underwent left foot partial ray amputation. The patient during his stay in the hospital was kept on broad-spectrum antibiotics with Vanco and Zosyn. After reviewing the blood cultures and patient clinical status it was switched to Augmentin. The patient improved with respect to his signs and symptoms. He underwent further diagnostic studies with his duplex scan of the lower limb that showed right moderate peripheral artery disease and left severe peripheral artery disease. The patient was reviewed by the chick room supervisor and then further underwent angiogram of lower extremities that showed features of severe peripheral artery disease. He was on rivaroxaban 2.5 mg twice daily daily and then switched to 10 mg daily as per cardiology recommendation and to continue on clopidogrel along with that. The patient hospital course was uncomplicated his electrolytes and kidney functions were monitored accordingly and corrected. The patient remained stable during his hospital stay. Patient to be discharged on Augmentin and doxycycline for 10 days. And to be followed as outpatient with ID for evaluation of ulcer and further management. The patient had mild hemoglobin drop which was likely postop versus lab dilutional parameters since there was no significant bleeding or any hematoma. Patient vitals remained stable during his hospital stay no tachycardia no tac hypnea no dizziness. Patient was also seen by the rehab and he was able to walk without any problems. Patient was offered exercise graded program and further physical rehab. He felt fine and would like to follow-up as outpatient and preferred to go home. Patient chart was reviewed, stability established before discharge. The patient has been informed throughout his hospital stay about his plan of management. All the risk and benefits were counseled without any language barrier and he agreed with the plan of care Physical Exam Narrative: General: Alert oriented x3, patient seen sitting comfortably on the chair HEENT: Normocephalic, atraumatic, EOMI, breathing at room air Cardio: Regular rate rhythm, normal S1-S2, no murmurs rubs gallops, Respiratory: Good bilateral air entry, no wheezes no rhonchi appreciated GI: Abdomen soft, nontender, nondistended, normoactive bowel sounds present all 4 quadrants, Neuro: Cranial nerves II to XII intact, strength 5/5, sensation 5/5, no gross neurological deficit Behavior: Appropriate and cooperative Extremities Left lower extremity foot wrapped in bandage s/p Partial first ray amputation left foot, right leg with chronic skin changes of PAD, mild edema, bilateral groin area without any hematoma Skin: As mentioned above Discharge Data Studies Completed and Pending Completed Studies During Hospitalization Category Date Time Status XR foot LT min 3V* [id number] Stat Exams 12/19/24 13:14 Completed Pending at discharge Category Date Time Status HATCH SUPERVISOR request for service Routine Exams 12/21/24 10:29 Taken Blood Culture Stat Lab 12/19/24 15:07 Results CBC Auto Diff [Complete Blood Count w/Auto] AM LABS Lab 12/24/24 04:00 Ordered CMP [Comprehensive Metabolic Panel] AM LABS Lab 12/24/24 04:00 Ordered Pathology: Surgical [PTH] Routine Pth 12/20/24 11:37 Received Radiology Impressions Foot X-Ray 12/19/24 13:14 Impression: Erosion of the distal phalanx of left great toe consistent with osteomyelitis. Laboratory Results WBC 7.27 10^3/uL (3.29-11.43) 12/23/24 05:14 RBC 3.17 10^6/uL (3.85-5.65) L 12/23/24 05:14 Hgb 8.00 g/dL (11.27-16.99) L 12/23/24 05:14 Hct 25.9 % (37-53) L 12/23/24 05:14 MCV 81.7 fl (82-101) L 12/23/24 05:14 MCH 25.2 pg (27-33) L 12/23/24 05:14 MCHC 30.9 g/dL (30-55) 12/23/24 05:14 RDW 16.1 % (12.1-15.1) H 12/23/24 05:14 Plt Count 218 10^3/cmm (157-399) 12/23/24 05:14 MPV 9.7 fL (7.4-10.4) 12/23/24 05:14 Neut % (Auto) 68.8 % 12/23/24 05:14 Lymph % (Auto) 14.0 % 12/23/24 05:14 Nye % (Auto) 11.4 % 12/23/24 05:14 Eos % (Auto) 4.8 % 12/23/24 05:14 Baso % (Auto) 0.4 % 12/23/24 05:14 Neut # (Auto) 5.00 10^3/uL (1.8-7.7) 12/23/24 05:14 Lymph # (Auto) 1.0 10^3/uL (0.8-4.8) 12/23/24 05:14 Nye # (Auto) 0.8 10^3/uL (0.2-0.9) 12/23/24 05:14 Eos # (Auto) 0.4 10^3/uL (0.0-0.8) 12/23/24 05:14 Baso # (Auto) 0.0 10^3/uL (0.0-0.1) 12/23/24 05:14 Nucleated RBC % (auto) 0 % 12/23/24 05:14 Nucleated RBCs # 0.0 /100WBC 12/23/24 05:14 ESR 58 mm/hr (0-10) H 12/19/24 11:10 APTT 29.7 SECONDS (23.9-36.7) 12/21/24 15:33 Sodium 135 mmol/L (136-145) L 12/23/24 05:14 Potassium 3.8 mmol/L (3.5-5.1) 12/23/24 05:14 Chloride 103 mmol/L (98-107) 12/23/24 05:14 Carbon Dioxide 18 mmol/L (22-29) L 12/23/24 05:14 Anion Gap 17.8 (5-19) 12/23/24 05:14 BUN 17 mg/dL (8-23) 12/23/24 05:14 Creatinine 1.3 mg/dL (0.7-1.2) H 12/23/24 05:14 GFR Calculation Not Reportable 12/23/24 05:14 Glucose 120 mg/dL (65-115) H 12/23/24 05:14 Estimat Average Glucose 111 12/20/24 05:23 Hemoglobin A1c 5.5 % (4.0-6.0) 12/20/24 05:23 Calculated Osmolality 283 mOsm/kg (285-295) L 12/23/24 05:14 Lactic Acid 1.1 mmol/L (0.5-2.2) 12/19/24 15:07 Calcium 8.3 mg/dL (8.5-10.5) L 12/23/24 05:14 Total Bilirubin 0.5 mg/dL (0.15-1.2) 12/23/24 05:14 AST 11 U/L (0-40) 12/23/24 05:14 ALT 8 U/L (0-41) 12/23/24 05:14 Alkaline Phosphatase 87 U/L (40-130) 12/23/24 05:14 C-Reactive Protein 130.3 mg/L (0.0-4.9) H 12/19/24 11:10 Total Protein 6.8 g/dL (6.6-8.7) 12/23/24 05:14 Albumin 2.9 g/dL (3.5-5.2) L 12/23/24 05:14 Globulin 3.9 g/dL (1.3-4.6) 12/23/24 05:14 Vancomycin Trough 13.3 ug/mL (10-15) 12/23/24 05:14 Vitals Last Vital Signs Temp 96.9 F L 12/23/24 12:00 Pulse 90 12/23/24 12:00 Resp 20 H 12/23/24 12:00 BP 137/76 12/23/24 12:00 Pulse Ox 100 12/23/24 12:00 O2 Del Method Room Air 12/23/24 12:00 O2 Flow Rate 8 12/20/24 11:40 Discharge Plan Discharge Patient Disposition: Home Condition: Stable Prescriptions: New amoxicillin-pot clavulanate 875-125 mg Tablet 1 tab PO BID 10 Days Qty: 20 0RF doxycycline hyclate 100 mg capsule 100 mg PO BID 10 Days Qty: 20 0RF Xarelto 10 mg Tablet 10 mg PO DAILY 90 Days Qty: 90 0RF Continued tamsulosin 0.4 mg capsule 0.4 mg PO DAILY carvedilol 12.5 mg tablet See Rx Instructions .ROUTE .COMPLEX Qty: 180 3RF Dose Instruction: TAKE 1 TABLET BY MOUTH TWICE DAILY Rx Instructions: TAKE 1 TABLET BY MOUTH TWICE DAILY alendronate 70 mg tablet See Rx Instructions .ROUTE .COMPLEX Qty: 12 3RF Dose Instruction: TAKE 1 TABLET BY MOUTH WEEKLY Rx Instructions: TAKE 1 TABLET BY MOUTH WEEKLY clonidine HCl 0.1 mg tablet 0.1 mg PO BID Qty: 60 11RF pantoprazole 40 mg tablet,delayed release (DR/EC) 40 mg PO DAILY Qty: 60 2RF clopidogrel 75 mg Tablet 75 mg PO DAILY Qty: 90 3RF mupirocin [Centany] 2 % ointment 1 applic topical BID Qty: 22 0RF furosemide [Lasix] 80 mg tablet 80 mg PO DAILY 90 Days Qty: 90 0RF Discontinued rivaroxaban 2.5 mg tablet 2.5 mg PO BID Qty: 60 3RF sulfamethoxazole-trimethoprim [Bactrim DS] 800-160 mg tablet 1 tab PO BID Qty: 20 0RF furosemide [Lasix] 40 mg tablet 40 mg PO QAM furosemide 40 mg tablet 80 mg PO QAM Design Technology Teacher OK for DC: Cardiology and Podiatry Discharge Order = DC NOW: Discharge Order (Routine); Ordered 12/23/24 Ordered By: Phool Maldonado Referrals: Myra Wiley, OT [Occupational Therapist, Occupational Health] - 4-7 days Referral Note: post left foot partial ray amputation and for mobility Phoenix Rowland DPM [Physician, Podiatry] - 7-10 days Referral Note: post left foot partial ray amputation Tra Palacios MD [Physician, Cardiology] Referral Note: We have notified your physician's clinic of the need for a follow-up appointment to be scheduled. If you have not heard from them within the next 2 business days, please call them directly. Anand Geiger MD [Primary Care Provider, [facility]] - 4-7 days Referral Note: We have notified your physician's clinic of the need for a follow-up appointment to be scheduled. If you have not heard from them within the next 2 business days, please call them directly. [facility] [Provider Group, Infectious Disease] - 7-10 days Discharge Diet: Advance as tolerated Discharge Activity: Limit activity as instructed Patient Instructions: Peripheral Vascular Stent Placement (DC), Acute Wound Care (DC), Peripheral Vascular Angioplasty (DC), Opioid Safety, Post Anesthesia Care, Pain Management, Patient Portal & Alejandra Instructions Discharge Attestations Time Spent in Discharge Care*: less than 30 min Specific Discharge Activities: educating patient, educating and/or supporting family/caregiver, discussing with pcp/other providers, discussing with residential case manager/social workers/dc planners, documenting/other paperwork and evaluating patient/reviewing data Status at Discharge: Cognitive status at discharge: cognitively intact , Behavioral status at discharge: cooperative , Functional status at discharge: other assisted ambulation , Overall status at discharge: patient is back to baseline Quality Metrics Clinical Quality Measures [ No reported AMI, CVA or VTE this stay] Coding Level of Care Code 07853 Diagnoses PAD (peripheral artery disease) I73.9 Stenosis of common iliac artery I70.0 Chronic kidney disease (CKD) N18.9 Non-pressure chronic ulcer of other part of left foot with necrosis of bone L97.524 Amputation of left foot S98.912A
[2024-12-23 14:38] VITALS: BP 134/76; PULSE 77; RESP 20; TEMP 36.1; O2SAT 100
== END 2024-12-23 14:31 | disposition home or self-care (01) | DRG 240 ==
LOC: ER 16:10 → MEDSURG 16:53 → CSU 12-21 15:25
PROVIDERS: Emergency Medicine; Internal Medicine; Podiatrist Foot & Ankle Surgery; Admitting Provider Student in an Organized Health Care Education/Training Program; Emergency Provider Physician Assistant; PCP Family Medicine; Visit Provider Student in an Organized Health Care Education/Training Program
PROC: 0Y6N0Z4 Detachment at Left Foot, Complete 1st Ray, Open Approach (ICD-10-PCS; principal; 2024-12-20 10:20)
PROC: 04FD3ZZ Fragmentation of Left Common Iliac Artery, Percutaneous Approach (ICD-10-PCS; principal; 2024-12-21 11:00)
PROC: 04FD3ZZ Fragmentation of Left Common Iliac Artery, Percutaneous Approach (ICD-10-PCS; 2024-12-21 11:00)
DX: E11.52 Type 2 diabetes mellitus with diabetic peripheral angiopathy with gangrene (principal); E87.1 Hypo-osmolality and hyponatremia; I48.11 Longstanding persistent atrial fibrillation; I96 Gangrene, not elsewhere classified; M86.172 Other acute osteomyelitis, left ankle and foot; N17.9 Acute kidney failure, unspecified; E11.621 Type 2 diabetes mellitus with foot ulcer; E11.69 Type 2 diabetes mellitus with other specified complication; D63.1 Anemia in chronic kidney disease; L97.524 Non-pressure chronic ulcer of other part of left foot with necrosis of bone; N40.0 Benign prostatic hyperplasia without lower urinary tract symptoms; I25.10 Atherosclerotic heart disease of native coronary artery without angina pectoris; E11.22 Type 2 diabetes mellitus with diabetic chronic kidney disease; I12.9 Hypertensive chronic kidney disease with stage 1 through stage 4 chronic kidney disease, or unspecified chronic kidney disease; N18.9 Chronic kidney disease, unspecified; J44.9 Chronic obstructive pulmonary disease, unspecified; K21.9 Gastro-esophageal reflux disease without esophagitis; I10 Essential (primary) hypertension; Z79.02 Long term (current) use of antithrombotics/antiplatelets; Z79.01 Long term (current) use of anticoagulants; Z79.899 Other long term (current) drug therapy; Z88.5 Allergy status to narcotic agent
CPT/HCPCS: 36415; 73630; 75625; 75716; 80053; 80202; 83036; 83605; 85025; 85347; 85651; 85730; 86140; 87040; 88305; 88311; 93005; 96365; 96372; 96375; 97110; 97116; 97161; 97166; 99152; 99153; 99214; 99285; C1725; C1769; C1874; C1887; C1894; C9765; J1200; J1644; J1650; J2250; J2543; J2704; J3010; J3372; J3373; J3490; J7030; J7050; J7120; J9999; Q9967

== ENCOUNTER → 2024-12-26 10:32 | Outpatient (BNVA) | payer MEDICARE, BC, SELFPAY | PROVIDERS: PCP Family Medicine; Visit Provider Podiatrist Foot & Ankle Surgery | DX: Z89.412 Acquired absence of left great toe (principal); Z98.890 Other specified postprocedural states | CPT/HCPCS: 99024; 99213 ==

== ENCOUNTER → 2025-01-04 09:16 | Outpatient (BNVA) | payer MEDICARE, BC, SELFPAY | PROVIDERS: PCP Family Medicine; Visit Provider Podiatrist Foot & Ankle Surgery | DX: Z89.412 Acquired absence of left great toe (principal); I73.9 Peripheral vascular disease, unspecified; M86.172 Other acute osteomyelitis, left ankle and foot; E11.69 Type 2 diabetes mellitus with other specified complication | CPT/HCPCS: 99213 ==

== ENCOUNTER → 2025-01-09 09:45 | Outpatient (BNVA) | payer MEDICARE, BC, SELFPAY | PROVIDERS: PCP Family Medicine; Visit Provider Family Medicine | DX: N18.9 Chronic kidney disease, unspecified (principal); S98.912A Complete traumatic amputation of left foot, level unspecified, initial encounter; X58.XXXA Exposure to other specified factors, initial encounter | CPT/HCPCS: 80053; 85025 ==

== ENCOUNTER → 2025-01-15 12:59 | Outpatient (BNVA) | payer MEDICARE, BC, SELFPAY | PROVIDERS: PCP Family Medicine; Visit Provider Nurse Practitioner Family | DX: Z09 Encounter for follow-up examination after completed treatment for conditions other than malignant neoplasm (principal); I70.0 Atherosclerosis of aorta; I48.11 Longstanding persistent atrial fibrillation; Z89.432 Acquired absence of left foot; Z98.890 Other specified postprocedural states; E11.51 Type 2 diabetes mellitus with diabetic peripheral angiopathy without gangrene; Z87.891 Personal history of nicotine dependence; Z79.01 Long term (current) use of anticoagulants | CPT/HCPCS: 99214 ==

== ENCOUNTER → 2025-01-21 09:50 | Outpatient (BNVA) | payer MEDICARE, BC, SELFPAY | PROVIDERS: PCP Family Medicine; Visit Provider Podiatrist Foot & Ankle Surgery | DX: T87.81 Dehiscence of amputation stump (principal); Y83.8 Other surgical procedures as the cause of abnormal reaction of the patient, or of later complication, without mention of misadventure at the time of the procedure; Z89.412 Acquired absence of left great toe; I73.9 Peripheral vascular disease, unspecified; E11.9 Type 2 diabetes mellitus without complications; M86.172 Other acute osteomyelitis, left ankle and foot; E11.69 Type 2 diabetes mellitus with other specified complication | CPT/HCPCS: 99214 ==

== ENCOUNTER 2025-01-24 10:12 | Day surgery (SDC) | payer MEDICARE, BC, SELFPAY ==
[2025-01-24] VITALS (8 sets, daily range): BP systolic 103–159; BP diastolic 66–90; PULSE 72–97; RESP 15–20; TEMP 36.1–36.8; O2SAT 95–100
--- NOTE | 2025-01-24 11:50 | W.PM.OPSUD ---
Surgery/Procedure H&P Update DATE OF PROCEDURE: January 24, 2025 DATE H&P PERFORMED: 01/21/25 H&P UPDATE INFORMATION: I have reviewed H&P completed within last 30 days, I have examined patient prior to procedure, No changes to prior documentation and Risks and benefits of the procedure reviewed PREOP DIAGNOSIS: Dehiscence of amputation stump PLANNED PROCEDURE: Operation Date: 01/24/25 12:00 Proposed Procedures p Delayed Wound Closure(Left) - Phoenix Rowland DPM
--- NOTE | 2025-01-24 11:54 | W.PM.BPON ---
Date of Procedure: 07/15/23 Surgeon: Phoenix Rowland DPM Transcription(s): Brad Procedure(s) performed: Delayed closure left foot Findings of the procedure(s): Full-thickness dehiscence amputation site left great toe Estimated blood loss: 2 mL Specimen(s) removed: Soft tissue sent to microbiology for Gram stain culture and sensitivity Post-operative diagnosis: Dehiscence left great toe amputation site
--- NOTE | 2025-01-24 12:00 | ANES.PREANE2 ---
Pre-Anesthetic Assessment Height/Weight: Height 1.78 m Weight 113.398 kg Temp Pulse Resp BP Pulse Ox O2 Del Method 97 F L 97 20 H 159/90 98 Room Air 01/24/25 10:44 01/24/25 10:44 01/24/25 10:44 01/24/25 10:44 01/24/25 10:44 01/24/25 10:44 Preop Diagnosis: Dehiscence of amputation stump Operation Date: 01/24/25 12:00 Proposed Procedures p Delayed Wound Closure(Left) - Phoenix Rowland DPM Familial anesthetic complications: None Was Beta Duncan taken within 24 hours: N/A Was Clonidine taken within 24 hours: N/A Last intake: Intake Last Liquid Date 01/23/25 Last Liquid Time 22:00 Last Solid Date 01/23/25 Last Solid Time 19:00 Social No alcohol and No tobacco Exam alert, oriented x 3, clear to auscultation bilaterally and regular rate & rhythm Pulmonary Chronic Obstructive Pulmonary Disease CV/HEM Hypertension and Peripheral Vascular Disease GI Gastroesophageal Reflux Disease Metabolic Diabetes Mellitus Anesthetic Plan ASA status: 4 Anesthesia: MAC Risk of > 500 ml blood loss (7ml/kg in children): No Medications/Allergies Home Medications ?Medication ?Instructions ?Recorded ?Confirmed ?Last Taken ?Type tamsulosin 0.4 mg capsule 0.4 mg PO DAILY 09/29/23 01/23/25 01/23/25 History clonidine HCl 0.1 mg tablet 0.1 mg PO BID #60 tabs 11/12/24 01/24/25 01/24/25 Rx clopidogrel 75 mg tablet 75 mg PO DAILY #90 tabs 11/20/24 01/23/25 01/23/25 Rx pantoprazole 40 mg tablet,delayed 40 mg PO DAILY #60 tabs 11/29/24 01/23/25 01/23/25 Rx release furosemide 80 mg tablet (Lasix) 80 mg PO DAILY 90 days #90 tabs 12/23/24 01/23/25 01/23/25 Rx rivaroxaban 10 mg tablet (Xarelto) 10 mg PO DAILY 90 days #90 tabs 12/23/24 01/23/25 01/23/25 Rx alendronate 70 mg tablet 70 mg PO Q7D 01/23/25 01/23/25 01/18/25 History carvedilol 12.5 mg tablet 12.5 mg PO BID 01/23/25 01/24/25 01/24/25 History Allergies Allergy/AdvReac Type Severity Reaction Status Date / Time oxycodone Allergy ADR-Itching Verified 01/23/25 15:33 fentanyl AdvReac Intermediate made him Verified 01/23/25 15:33 paranoid Current Medications Generic Name Dose Route Start Last Admin Trade Name Freq PRN Reason Stop Dose Admin Sodium Chloride 1,000 mls @ 30 mls/hr 01/24/25 10:30 01/24/25 11:05 Sodium Chloride 0.9% IV 01/25/25 10:29 30 mls/hr .Q24H LEÓN Administration PFSH Anesthesia Medical History PAD (peripheral artery disease) Subchondral sclerosis Longstanding persistent atrial fibrillation Lumbar spinal stenosis Hyponatremia This has been chronic for several years. Made worse by diuretics. Negative work-up otherwise Gout Chronic kidney disease (CKD) Primary hypertension Diabetes mellitus type 2, controlled COPD (chronic obstructive pulmonary disease) GERD (gastroesophageal reflux disease) Social History Smoking and tobacco/nicotine status: never used tobacco/nicotine Data Anesthesia Cardiac Studies: Echocardiogram 03/16/23
[2025-01-24] MEDS: BUPivacaine 0.5% INJ 30 mL 15 ML INJECTION (12:15)
--- NOTE | 2025-01-24 12:53 | P.OP_ITS ---
Operative Report Date of procedure: January 24, 2025 Pre-op diagnosis: Status post amputation of left great toe Z89.412, PAD (peripheral artery disease) I73.9, Diabetes mellitus type 2, controlled E11.9 and dehiscence of amputation stump T87.81 Post-op diagnosis: Status post amputation of left great toe Z89.412, PAD (peripheral artery disease) I73.9, Diabetes mellitus type 2, controlled E11.9 and dehiscence of amputation stump T87.81 Post-op findings: Successful delayed closure Procedure done: Delayed closure left foot. CPT code 13721 Implants: 2-0 Vicryl, 3-0 Vicryl, 3-0 nylon Specimens removed/disposition: Soft tissue left foot sent to microbiology for Gram stain culture and sensitivity Pathology: None Surgeon: Phoenix Rowland DPM Manager Operational: Brad Estimated blood loss: 2 mL See intraoperative documentation IV fluids: See intraoperative documentation Urine output: No urine output Complications: no complications Findings: Full-thickness dehiscence of amputation site left foot Brief History: 74-year-old diabetic male status post left great toe amputation secondary to acute osteomyelitis. Continue at home health as he is homebound and requires 3 times weekly dressing change consisting of Betadine wet-to-dry at left great toe amputation site. Offload with cam boot and walker. Will continue with home health. Discussed dehiscence treatment options patient would like to return to operating room for debridement and delayed closure. I reviewed at length with the patient, the risks, potential complications, benefits, alternatives, expectations, and typical outcomes associated with the surgery. The risks and potential complications were explained in detail, including but not limited to infection, wound dehiscence or soft tissue complications, bleeding and hematoma, chronic edema, neuritis or nerve damage producing numbness or chronic pain, CRPS, failure to relieve pain or worsening pain, thick / painful / unsightly scar, limited motion / stiffness, malposition, delayed union, malunion, or nonunion, fracture, reaction to implants, anesthetic complications, venous thromboembolism, and deformity recurrence. I discussed the notion of no re grets with the patient as it pertains to complications and outcomes. The patient seemed to understand the nature of the proposed care and required convalescence. They asked appropriate questions, answered to their satisfaction. They are aware no guarantees can be made as to a satisfactory outcome and they understand there may be other possible unforeseen complications or outcomes not listed here that will be treated accordingly if they arise. There were no written or implied guarantees given to the patient. They gave informed consent to proceed. Procedure: Under mild sedation the patient was brought to the operating room and remained on the gurney in supine position. A timeout was performed. Anesthesia was administered by the anesthesia service. Local anesthesia injected by myself consisting of 30 cc of one-to-one mixture 1% lidocaine and 0.5% Marcaine plain in a left Aguilar block fashion. Left lower extremity was scrubbed, prepped and draped utilizing normal aseptic technique. Attention was directed to the distal medial aspect of the left foot where amputation site from hallux amputation was appreciated to have full dehiscence. The amputation site and dehiscence site was sharply and excisionally debrided of devitalized epidermis, dermis, subcutaneous tissue and myofascial layer with pickups and a #15 blade followed by copious amounts of saline irrigation. Deep soft tissue cultures taken intraoperatively and sent to microbiology for Gram stain, culture and sensitivity. Further irrigation with Irrisept performed. Al l bleeders were ligated and cauterized as necessary. Full-thickness fresh margins were obtained with 15 blade, postdebridement measurements 4.5 cm in length, adequate soft tissue to provide closure appreciated intraoperatively. No further devitalized tissue appreciated, myofascial layer was reapproximated with 2-0 Vicryl, subcutaneous tissue with 3-0 Vicryl and skin with 4-0 nylon. The incision was dressed with Xeroform, 4 x 4 gauze, Kerlix, Callum wrap followed by application of a cam boot. Patient tolerated the procedure and anesthesia well and was transferred to the PACU with vital signs stable and vascular status intact. Following a period of postoperative monitoring patient will be discharged home with oral antibiotics and informed this may require adjustments once cultures yield further information.
--- NOTE | 2025-01-25 13:40 | ANE.PACU2 ---
Inpatient post-anesthesia follow up: Airway intact: Yes Vital signs: Temperature 97.2 F Pulse Rate 84 Respiratory Rate 16 Blood Pressure 152/81 Pulse Oximetry 100 Oxygen Delivery Me thod Room Air Oxygen Flow Rate 8 Fraction of Inspir ed Oxygen Hydration adequate: Yes Nausea and vomiting: No Pain level: 1 Mental status: Baseline
== END 2025-01-24 13:40 | disposition home or self-care (01) ==
PROVIDERS: PCP Family Medicine; Visit Provider Podiatrist Foot & Ankle Surgery
PROC: (CPT 13160; principal; 2025-01-24 12:00)
DX: T87.81 Dehiscence of amputation stump (principal); Z89.412 Acquired absence of left great toe; I73.9 Peripheral vascular disease, unspecified; E11.22 Type 2 diabetes mellitus with diabetic chronic kidney disease; I12.9 Hypertensive chronic kidney disease with stage 1 through stage 4 chronic kidney disease, or unspecified chronic kidney disease; N18.9 Chronic kidney disease, unspecified; J44.9 Chronic obstructive pulmonary disease, unspecified; K21.9 Gastro-esophageal reflux disease without esophagitis; Z87.891 Personal history of nicotine dependence; I48.11 Longstanding persistent atrial fibrillation; E11.51 Type 2 diabetes mellitus with diabetic peripheral angiopathy without gangrene
CPT/HCPCS: 27691; 87070; 87077; 87176; 87186; 87205; J2704; J3373; J3490; J7030; J9999

== ENCOUNTER → 2025-01-31 13:01 | Outpatient (BNVA) | payer MEDICARE, BC, SELFPAY | PROVIDERS: PCP Family Medicine; Visit Provider Podiatrist Foot & Ankle Surgery | DX: T87.81 Dehiscence of amputation stump (principal); Z89.412 Acquired absence of left great toe; I73.9 Peripheral vascular disease, unspecified; M86.172 Other acute osteomyelitis, left ankle and foot; E11.69 Type 2 diabetes mellitus with other specified complication; Y83.8 Other surgical procedures as the cause of abnormal reaction of the patient, or of later complication, without mention of misadventure at the time of the procedure | CPT/HCPCS: 99213 ==

== ENCOUNTER → 2025-02-07 12:25 | Outpatient (BNVA) | payer MEDICARE, BC, SELFPAY | PROVIDERS: PCP Family Medicine; Visit Provider Podiatrist Foot & Ankle Surgery | DX: T87.81 Dehiscence of amputation stump (principal); Z89.412 Acquired absence of left great toe; I73.9 Peripheral vascular disease, unspecified; M86.172 Other acute osteomyelitis, left ankle and foot; Y83.8 Other surgical procedures as the cause of abnormal reaction of the patient, or of later complication, without mention of misadventure at the time of the procedure; E11.69 Type 2 diabetes mellitus with other specified complication | CPT/HCPCS: 99213 ==

== ENCOUNTER → 2025-02-12 14:06 | Outpatient (BNVA) | payer MEDICARE, BC, SELFPAY | PROVIDERS: PCP Family Medicine; Visit Provider Podiatrist Foot & Ankle Surgery | DX: I73.9 Peripheral vascular disease, unspecified (principal); Z89.412 Acquired absence of left great toe; E11.9 Type 2 diabetes mellitus without complications; M86.172 Other acute osteomyelitis, left ankle and foot; T87.81 Dehiscence of amputation stump; Y83.8 Other surgical procedures as the cause of abnormal reaction of the patient, or of later complication, without mention of misadventure at the time of the procedure | CPT/HCPCS: 99213 ==

== ENCOUNTER → 2025-02-20 10:03 | Outpatient (BNVA) | payer MEDICARE, BC, SELFPAY | PROVIDERS: PCP Family Medicine; Visit Provider Podiatrist Foot & Ankle Surgery | DX: T87.81 Dehiscence of amputation stump (principal); Z89.412 Acquired absence of left great toe; I73.9 Peripheral vascular disease, unspecified; E11.9 Type 2 diabetes mellitus without complications; M86.172 Other acute osteomyelitis, left ankle and foot; Y83.8 Other surgical procedures as the cause of abnormal reaction of the patient, or of later complication, without mention of misadventure at the time of the procedure | CPT/HCPCS: 99213 ==

== ENCOUNTER → 2025-02-27 12:17 | Outpatient (BNVA) | payer MEDICARE, BC, SELFPAY | PROVIDERS: PCP Family Medicine; Visit Provider Podiatrist Foot & Ankle Surgery | DX: Z89.412 Acquired absence of left great toe (principal); I73.9 Peripheral vascular disease, unspecified; M86.172 Other acute osteomyelitis, left ankle and foot; T87.81 Dehiscence of amputation stump; E11.69 Type 2 diabetes mellitus with other specified complication; Y83.8 Other surgical procedures as the cause of abnormal reaction of the patient, or of later complication, without mention of misadventure at the time of the procedure | CPT/HCPCS: 99213 ==

== ENCOUNTER → 2025-03-06 11:00 | Outpatient (BNVA) | payer MEDICARE, BC, SELFPAY | PROVIDERS: PCP Family Medicine; Visit Provider Podiatrist Foot & Ankle Surgery | DX: Z89.412 Acquired absence of left great toe (principal); I73.9 Peripheral vascular disease, unspecified; M86.172 Other acute osteomyelitis, left ankle and foot; T87.81 Dehiscence of amputation stump; L03.116 Cellulitis of left lower limb; E11.621 Type 2 diabetes mellitus with foot ulcer; L97.522 Non-pressure chronic ulcer of other part of left foot with fat layer exposed; Y83.8 Other surgical procedures as the cause of abnormal reaction of the patient, or of later complication, without mention of misadventure at the time of the procedure | CPT/HCPCS: 11042; 99214 ==

== ENCOUNTER → 2025-03-13 11:24 | Outpatient (BNVA) | payer MEDICARE, BC, SELFPAY | PROVIDERS: PCP Family Medicine; Visit Provider Family Medicine | DX: I10 Essential (primary) hypertension (principal); I48.91 Unspecified atrial fibrillation; E11.9 Type 2 diabetes mellitus without complications; E87.1 Hypo-osmolality and hyponatremia | CPT/HCPCS: 80053; 85025; 86140 ==

== ENCOUNTER → 2025-03-20 10:06 | Outpatient (BNVA) | payer MEDICARE, BC, SELFPAY | PROVIDERS: PCP Family Medicine; Visit Provider Podiatrist Foot & Ankle Surgery | DX: E11.621 Type 2 diabetes mellitus with foot ulcer (principal); L97.522 Non-pressure chronic ulcer of other part of left foot with fat layer exposed; Z89.412 Acquired absence of left great toe; I73.9 Peripheral vascular disease, unspecified; E11.9 Type 2 diabetes mellitus without complications; M86.172 Other acute osteomyelitis, left ankle and foot; T87.81 Dehiscence of amputation stump; L97.523 Non-pressure chronic ulcer of other part of left foot with necrosis of muscle; Y83.8 Other surgical procedures as the cause of abnormal reaction of the patient, or of later complication, without mention of misadventure at the time of the procedure | CPT/HCPCS: 11043 ==

== ENCOUNTER → 2025-03-20 11:10 | Outpatient (BNVA) | payer MEDICARE, BC, SELFPAY | PROVIDERS: PCP Family Medicine; Visit Provider Podiatrist Foot & Ankle Surgery | DX: L97.522 Non-pressure chronic ulcer of other part of left foot with fat layer exposed (principal) | CPT/HCPCS: 87070; 87075; 87205 ==

== ENCOUNTER → 2025-04-03 10:02 | Outpatient (BNVA) | payer MEDICARE, BC, SELFPAY | PROVIDERS: PCP Family Medicine; Visit Provider Podiatrist Foot & Ankle Surgery | DX: I73.9 Peripheral vascular disease, unspecified (principal); Z89.412 Acquired absence of left great toe; M86.172 Other acute osteomyelitis, left ankle and foot; T87.81 Dehiscence of amputation stump; E11.621 Type 2 diabetes mellitus with foot ulcer; L97.523 Non-pressure chronic ulcer of other part of left foot with necrosis of muscle; Y83.8 Other surgical procedures as the cause of abnormal reaction of the patient, or of later complication, without mention of misadventure at the time of the procedure | CPT/HCPCS: 99213 ==

== ENCOUNTER → 2025-04-10 11:03 | Outpatient (BNVA) | payer MEDICARE, BC, SELFPAY | PROVIDERS: PCP Family Medicine; Visit Provider Podiatrist Foot & Ankle Surgery | DX: I73.9 Peripheral vascular disease, unspecified (principal); Z89.412 Acquired absence of left great toe; M86.172 Other acute osteomyelitis, left ankle and foot; E11.621 Type 2 diabetes mellitus with foot ulcer; L97.523 Non-pressure chronic ulcer of other part of left foot with necrosis of muscle | CPT/HCPCS: 99213 ==

== ENCOUNTER → 2025-04-17 10:56 | Outpatient (BNVA) | payer MEDICARE, BC, SELFPAY | PROVIDERS: PCP Family Medicine; Visit Provider Podiatrist Foot & Ankle Surgery | DX: I73.9 Peripheral vascular disease, unspecified (principal); Z89.412 Acquired absence of left great toe; E11.9 Type 2 diabetes mellitus without complications; M86.172 Other acute osteomyelitis, left ankle and foot; L97.523 Non-pressure chronic ulcer of other part of left foot with necrosis of muscle | CPT/HCPCS: 11043 ==

== ENCOUNTER → 2025-04-23 12:36 | Outpatient (BNVA) | payer MEDICARE, BC, SELFPAY | PROVIDERS: PCP Family Medicine; Visit Provider Podiatrist Foot & Ankle Surgery | DX: E11.621 Type 2 diabetes mellitus with foot ulcer (principal); L97.523 Non-pressure chronic ulcer of other part of left foot with necrosis of muscle; Z89.412 Acquired absence of left great toe; I73.9 Peripheral vascular disease, unspecified; M86.172 Other acute osteomyelitis, left ankle and foot | CPT/HCPCS: 11044; 99214 ==

== ENCOUNTER → 2025-05-01 10:46 | Outpatient (BNVA) | payer MEDICARE, BC, SELFPAY | PROVIDERS: PCP Family Medicine; Visit Provider Podiatrist Foot & Ankle Surgery | DX: Z89.412 Acquired absence of left great toe (principal); I73.9 Peripheral vascular disease, unspecified; M86.172 Other acute osteomyelitis, left ankle and foot; E11.621 Type 2 diabetes mellitus with foot ulcer; L97.523 Non-pressure chronic ulcer of other part of left foot with necrosis of muscle | CPT/HCPCS: 99213 ==